=== PATIENT | female | born 1955 | race Caucasian/White ===

== ENCOUNTER → 2018-09-10 17:05 | Outpatient (CLI) | payer OTHER, SELFPAY | PROVIDERS: Family Provider Nurse Practitioner Family; PCP Nurse Practitioner Family; Visit Provider Physician Assistant | DX: R30.0 Dysuria (principal) | CPT/HCPCS: 87077; 87086; 87186 ==

== ENCOUNTER → 2018-12-30 17:46 | Outpatient (CLI) | payer OTHER, SELFPAY | PROVIDERS: Family Provider Nurse Practitioner Family; PCP Nurse Practitioner Family; Visit Provider Physician Assistant | DX: N30.01 Acute cystitis with hematuria (principal) | CPT/HCPCS: 87077; 87086; 87186 ==

== ENCOUNTER 2019-04-19 09:00 | Outpatient (RCR) | payer OTHER, SELFPAY ==
--- NOTE | 2019-03-10 15:12 | PT.OIE ---
Current Diagnoses Female genital prolapse, unspecified (03/10/19) Urgency of urination (03/10/19) Past Medical History (Last Updated 01/11/19 @ 11:29 by Lissett Steinberg MD) Pelvic relaxation (Acute) Past Surgical History Status post breast biopsy Status post bunionectomy Status post endometrial ablation Visit Care Team Role Provider Type Doug NorthFABIANA Hutchins Primary Care Provider Advanced Director Of Instruction Specialty: FP Address: [address] [place] [address], [id number] Email: Lissett Steinberg MD Attending Provider Physician Specialty: BOILER ENGINEER Address: [address] [place] [address], [id number] Email: [email or web address] Physical Therapy Initial Evaluation PT-OP-A Visit Information Start: 03/10/19 07:28 Freq: Status: Active Protocol: Document 03/10/19 08:15 AMB (Rec: 03/10/19 11:00 AMB [email or web address]) Out-Patient Physical Therapy Visit Information Visit Information Visit Type Initial Evaluation Visit Start Time 08:15 Visit Stop Time 09:05 Total Visit Minutes 50 Visit Number 1 PT-OP-B Current Condition Start: 03/10/19 07:28 Freq: Status: Active Protocol: Document 03/10/19 08:15 AMB (Rec: 03/10/19 11:00 AMB [email or web address]) Current Condition History of Current Condition Onset Date 6 months ago Current Complaints prolapse, urinary urgency History of Current Condition Ita noticed increased vaginal pressure about 6-9 months ago. 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 Since that time she has noticed increased urgency. She has also had 4 UTIs since that time and a yeast infection. She notes leaks with triggers like walking into the freezer at work, walking to the toilet , and water running. She also notes lifting things at work could make her leak. She his with 3 vaginal deliveries, the first she had an episiotomy and forceps delivery, the second she had an episiotomy and tore more. She is post menopausal at this point, and not currently sexually active due to her 's recent cancer treatment. Treatment Goals Patient/Caregiver Goals Reduce urge incontinence. Try to help prolapse Prior Functional Status Baseline Function- ADL's Independent Baseline Function- Mobility Independent Current Functional Impairments (Reported) Functional Limitations- Work/School Tries not to lift more than 15 pounds at work due to prolapse Personal Factors Other Personal Factors That May Effect Back pain Therapy/Recovery PT-OP-C Subjective Start: 03/10/19 07:28 Freq: Status: Active Protocol: Document 03/10/19 08:15 AMB (Rec: 03/10/19 14:41 AMB [email or web address]) Patient Questionnaires Pelvic Pain and Urgency/Frequency Patient Symptom Scale Pelvic Pain Score 6 PT-OP-I Pelvic Floor Start: 03/10/19 07:28 Freq: Status: Active Protocol: Document 03/10/19 08:15 AMB (Rec: 03/10/19 14:41 AMB [email or web address]) Pelvic Floor Assessment Urine Pelvic Floor Surgery No Urinary Symptoms Urge Sensation,Prolapse, Falling Out Feeling/Heavy Leakage Size Medium Leakage Cause Lifting,Urge Leaks Per Day varies Voiding Frequency every 2 hours Nocturia 2-4 Urine Pad Type Panty Liner Bowel Other Bowel Symptoms hx of constipation with , but denies recent constipation Bowel Movement Frequency 1x/day Pelvic Clock Pelvic Clock Other pt's pessary in place during assessment, denies any tenderness, redness present throughout groin area Prolapse Prolapse Comments not assessed today due to pessary in place Perineal Descent Resting Absent Bearing Present Contraction Ability Voluntary Contraction Moderate Voluntary Relaxation Moderate Manual Muscle Testing Left 3 Manual Muscle Testing Right 3 Manual Muscle Testing Anterior 3 Manual Muscle Testing Posterior 4 Muscle Endurance (Seconds) 7 Number of Quick Contractions In 10 5 Seconds PT-OP-T Assessment and Plan Start: 03/10/19 07:28 Freq: Status: Active Protocol: Document 03/10/19 08:15 AMB (Rec: 03/10/19 14:59 AMB [email or web address]) Physical Therapy Assessment Rehab Potential Rehabilitation Potential Good Evaluation Complexity Number of Personal Factors/Comorbidities 1-2 Number of Body Systems Impaired 3 Clinical Presentation at Evaluation Evolving Impairments Impairments Functional Activities, Integument,Strength Goals Two Impairment pelvic floor strength Short Term Goal (STG) Ita will improve her pelvic floor strength to 4/5. STG Duration 4 weeks Nurse Practitioner Adult Goal (LTG) Ita will maintain a pelvic floor contraction while she is lifting 15# from the floor to waist height. LTG Duration 8 weeks One Impairment urgency Short Term Goal (STG) Ita will be able to walk into the freezer at work without feeling urgency. STG Duration 4 weeks Jail Goal (LTG) Ita will walk into the bathroom without urgency. LTG Duration 8 weeks Assessment Summary Assessment Ita attends physical therapy with recent history of cystocele, and then recurrent UTI after using a pessary. Since the UTIs she has had urge incontinence. She is currently working on her [employer] and her pelvic floor strength was actually fair. She will benefit from PT to work on reducing her urgency, nocturia, and improve her pelvic floor strength. Physical Therapy Plan Frequency and Duration Frequency of Treatment 1x/Week Duration of Treatment 8 weeks Plan of Care Start Date 03/10/19 Plan of Care End Date 05/05/19 Therapeutic Interventions Therapeutic Interventions Home Exercise Program,Manual Therapy,Neuromuscular Re- education,Self-Care/Home Management,Therapeutic Activities,Therapeutic Exercises Modalities Biofeedback,Electric Stimulation Next Visit Focus/Plan Next Note Type Treatment Note Next Visit Plan start with sEMG, could try NMES, urge reduction.
--- NOTE | 2019-03-10 15:13 | PT.OPPOC ---
Physical, Occupational & Speech Therapy At [facility] Current Diagnoses Female genital prolapse, unspecified (03/10/19) Urgency of urination (03/10/19) Visit Care Team Role Provider FABIANA Yanez Primary Care Provider Advanced Burn Crew Member Specialty: FP Address: [address] [place] [address], [id number] Email: Lissett Steinberg MD Attending Provider Physician Specialty: PERFORMANCE TESTER Address: [address] [place] [address], [id number] Email: [email or web address] Plan Of Care PT-OP-T Assessment and Plan Start: 03/10/19 07:28 Freq: Status: Active Protocol: Document 03/10/19 08:15 AMB (Rec: 03/10/19 14:59 AMB [email or web address]) Physical Therapy Assessment Rehab Potential Rehabilitation Potential Good Evaluation Complexity Number of Personal Factors/Comorbidities 1-2 Number of Body Systems Impaired 3 Clinical Presentation at Evaluation Evolving Impairments Impairments Functional Activities, Integument,Strength Goals Two Impairment pelvic floor strength Short Term Goal (STG) Ita will improve her pelvic floor strength to 4/5. STG Duration 4 weeks [facility]cf Goal (LTG) Ita will maintain a pelvic floor contraction while she is lifting 15# from the floor to waist height. LTG Duration 8 weeks One Impairment urgency Short Term Goal (STG) Ita will be able to walk into the freezer at work without feeling urgency. STG Duration 4 weeks Brass Pourer Goal (LTG) Ita will walk into the bathroom without urgency. LTG Duration 8 weeks Assessment Summary Assessment Ita attends physical therapy with recent history of cystocele, and then recurrent UTI after using a pessary. Since the UTIs she has had urge incontinence. She is currently working on her Kegels and her pelvic floor strength was actually fair. She will benefit from PT to work on reducing her urgency, nocturia, and improve her pelvic floor strength. Physical Therapy Plan Frequency and Duration Frequency of Treatment 1x/Week Duration of Treatment 8 weeks Plan of Care Start Date 03/10/19 Plan of Care End Date 05/05/19 Therapeutic Interventions Therapeutic Interventions Home Exercise Program,Manual Therapy,Neuromuscular Re- education,Self-Care/Home Management,Therapeutic Activities,Therapeutic Exercises Modalities Biofeedback,Electric Stimulation Next Visit Focus/Plan Next Note Type Treatment Note Next Visit Plan start with sEMG, could try NMES, urge reduction. Plan of Care Dates Plan of Care Start Date 03/10/19 Plan of Care End Date 05/05/19 Electronically Signed by: Keely Arroyo, PT 03/10/19 [id number] Please Sign and Return: I have reviewed this Plan of Care and certify that the skilled therapy services above are required to meet the patient?s needs. Physician Signature Date Printed Name and Credentials Clinical Instructor Signature Printed Name and Credentials
--- NOTE | 2019-03-15 09:17 | PT.OTN ---
Current Diagnoses Female genital prolapse, unspecified (03/15/19) Urgency of urination (03/15/19) Physical Therapy Treatment Note PT-OP-A Visit Information Start: 03/10/19 07:28 Freq: Status: Active Protocol: Document 03/15/19 08:15 AMB (Rec: 03/15/19 08:30 AMB [email or web address]) Out-Patient Physical Therapy Visit Information Visit Information Visit Type Treatment Note Visit Start Time 08:15 Visit Stop Time 09:00 Total Visit Minutes 45 Visit Number 2 PT-OP-B Current Condition Start: 03/10/19 07:28 Freq: Status: Active Protocol: Document 03/10/19 08:15 AMB (Rec: 03/10/19 11:00 AMB [email or web address]) Current Condition History of Current Condition Onset Date 6 months ago Current Complaints prolapse, urinary urgency History of Current Condition Ita noticed increased vaginal pressure about 6-9 months ago. She went to her LIVING SPECIALIST and was fitted for a pessary,she denies any specific activity that increased prolapse, it just happened insidiously. Since that time she has noticed increased urgency. She has also had 4 UTIs since that time and a yeast infection. She notes leaks with triggers like walking into the freezer at work, walking to the toilet , and water running. She also notes lifting things at work could make her leak. She his with 3 vaginal deliveries, the first she had an episiotomy and forceps delivery, the second she had an episiotomy and tore more. She is post menopausal at this point, and not currently sexually active due to her 's recent cancer treatment. Treatment Goals Patient/Caregiver Goals Reduce urge incontinence. Try to help prolapse Prior Functional Status Baseline Function- ADL's Independent Baseline Function- Mobility Independent Current Functional Impairments (Reported) Functional Limitations- Work/School Tries not to lift more than 15 pounds at work due to prolapse Personal Factors Other Personal Factors That May Effect Back pain Therapy/Recovery PT-OP-C Subjective Start: 03/10/19 07:28 Freq: Status: Active Protocol: Document 03/15/19 08:15 AMB (Rec: 03/15/19 08:30 AMB [email or web address]) OP-PT Subjective Patient Comments Patient Comments Pt states she has been trying to walk calmly to the bathroom over the past 5 days, and that has worked, with the exception of one time and then she leaked a lot. PT-OP-I Pelvic Floor Start: 03/10/19 07:28 Freq: Status: Active Protocol: Document 03/10/19 08:15 AMB (Rec: 03/10/19 14:41 AMB [email or web address]) Pelvic Floor Assessment Urine Pelvic Floor Surgery No Urinary Symptoms Urge Sensation,Prolapse, Falling Out Feeling/Heavy Leakage Size Medium Leakage Cause Lifting,Urge Leaks Per Day varies Voiding Frequency every 2 hours Nocturia 2-4 Urine Pad Type Panty Liner Bowel Other Bowel Symptoms hx of constipation with , but denies recent constipation Bowel Movement Frequency 1x/day Pelvic Clock Pelvic Clock Other pt's pessary in place during assessment, denies any tenderness, redness present throughout groin area Prolapse Prolapse Comments not assessed today due to pessary in place Perineal Descent Resting Absent Bearing Present Contraction Ability Voluntary Contraction Moderate Voluntary Relaxation Moderate Manual Muscle Testing Left 3 Manual Muscle Testing Right 3 Manual Muscle Testing Anterior 3 Manual Muscle Testing Posterior 4 Muscle Endurance (Seconds) 7 Number of Quick Contractions In 10 5 Seconds PT-OP-Q Treatments Start: 03/10/19 07:28 Freq: Status: Active Protocol: Document 03/15/19 08:15 AMB (Rec: 03/15/19 09:17 AMB [email or web address]) Neuro Re-Education Treatment Other Activities 1 Details sEMG Comments hooklying- quick flicks and long holds. Education in delaying frequency of urination, starting when at home, eventually working towards nighttime and at work. PT-OP-T Assessment and Plan Start: 03/10/19 07:28 Freq: Status: Active Protocol: Document 03/15/19 08:15 AMB (Rec: 03/15/19 09:17 AMB [email or web address]) Physical Therapy Assessment Assessment Summary Assessment sEMG baseline 1.7, max 17, avg 9 for 10 second holds. Some difficulty holding entire 10 seconds, but overall quite good. Will need to continue to work on decreasing frequency and urgency. Physical Therapy Plan Next Visit Focus/Plan Next Note Type Treatment Note Next Visit Plan Expand HEP, continue urge reduction education
--- NOTE | 2019-03-22 10:19 | PT.OTN ---
Current Diagnoses Female genital prolapse, unspecified (03/22/19) Urgency of urination (03/22/19) Physical Therapy Treatment Note PT-OP-A Visit Information Start: 03/10/19 07:28 Freq: Status: Active Protocol: Document 03/22/19 09:00 AMB (Rec: 03/22/19 10:19 AMB [id number]) Out-Patient Physical Therapy Visit Information Visit Information Visit Type Treatment Note Visit Start Time 09:00 Visit Stop Time 09:45 Total Visit Minutes 45 Visit Number 3 PT-OP-B Current Condition Start: 03/10/19 07:28 Freq: Status: Active Protocol: Document 03/10/19 08:15 AMB (Rec: 03/10/19 11:00 AMB [email or web address]) Current Condition History of Current Condition Onset Date 6 months ago Current Complaints prolapse, urinary urgency History of Current Condition Ita noticed increased vaginal pressure about 6-9 months ago. 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 Since that time she has noticed increased urgency. She has also had 4 UTIs since that time and a yeast infection. She notes leaks with triggers like walking into the freezer at work, walking to the toilet , and water running. She also notes lifting things at work could make her leak. She his with 3 vaginal deliveries, the first she had an episiotomy and forceps delivery, the second she had an episiotomy and tore more. She is post menopausal at this point, and not currently sexually active due to her 's recent cancer treatment. Treatment Goals Patient/Caregiver Goals Reduce urge incontinence. Try to help prolapse Prior Functional Status Baseline Function- ADL's Independent Baseline Function- Mobility Independent Current Functional Impairments (Reported) Functional Limitations- Work/School Tries not to lift more than 15 pounds at work due to prolapse Personal Factors Other Personal Factors That May Effect Back pain Therapy/Recovery PT-OP-C Subjective Start: 03/10/19 07:28 Freq: Status: Active Protocol: Document 03/22/19 09:00 AMB (Rec: 03/22/19 10:19 AMB [id number]) OP-PT Subjective Patient Comments Patient Comments Pt states she had one large leak yesterday, but overall had a good week. She is able to make it from her car into her house, she does think she goes to the bathroom about every 2 hours. The one large leak was at work, when she had already ignored the first two urges that she had, and at the third urge had a large leak. Pt is hoping to return to intercourse with her soon, as his cancer has been in remission for 3 months. PT-OP-I Pelvic Floor Start: 03/10/19 07:28 Freq: Status: Active Protocol: Document 03/10/19 08:15 AMB (Rec: 03/10/19 14:41 AMB [email or web address]) Pelvic Floor Assessment Urine Pelvic Floor Surgery No Urinary Symptoms Urge Sensation,Prolapse, Falling Out Feeling/Heavy Leakage Size Medium Leakage Cause Lifting,Urge Leaks Per Day varies Voiding Frequency every 2 hours Nocturia 2-4 Urine Pad Type Panty Liner Bowel Other Bowel Symptoms hx of constipation with , but denies recent constipation Bowel Movement Frequency 1x/day Pelvic Clock Pelvic Clock Other pt's pessary in place during assessment, denies any tenderness, redness present throughout groin area Prolapse Prolapse Comments not assessed today due to pessary in place Perineal Descent Resting Absent Bearing Present Contraction Ability Voluntary Contraction Moderate Voluntary Relaxation Moderate Manual Muscle Testing Left 3 Manual Muscle Testing Right 3 Manual Muscle Testing Anterior 3 Manual Muscle Testing Posterior 4 Muscle Endurance (Seconds) 7 Number of Quick Contractions In 10 5 Seconds PT-OP-Q Treatments Start: 03/10/19 07:28 Freq: Status: Active Protocol: Document 03/22/19 09:00 AMB (Rec: 03/22/19 10:19 AMB [id number]) Neuro Re-Education Treatment Other Activities 1 Details sEMG Comments hooklying- quick flicks and long holds. Education in delaying urgency, but also listening to body and going to the bathroom after urge and not waiting until 2nd or 3rd urge. Self-Care/Home Management Treatment Education Other Education Educated in avoidance of vaseline would recommend something like replens instead . PT-OP-T Assessment and Plan Start: 03/10/19 07:28 Freq: Status: Active Protocol: Document 03/22/19 09:00 AMB (Rec: 03/22/19 09:58 AMB [id number]) Physical Therapy Assessment Assessment Summary Assessment sEMG max 22, avg 10, baseline 1.5. Pt overall improving with her sx of urgency, but did have one large leak yesterday. Encouraged pt not to use vaseline for internal vaginal use. Physical Therapy Plan Next Visit Focus/Plan Next Note Type Treatment Note Next Visit Plan Expand HEP, work on seated/ standing exercises.
--- NOTE | 2019-03-29 14:14 | PT.OTN ---
Current Diagnoses Female genital prolapse, unspecified (03/29/19) Urgency of urination (03/29/19) Physical Therapy Treatment Note PT-OP-A Visit Information Start: 03/10/19 07:28 Freq: Status: Active Protocol: Document 03/29/19 09:00 AMB (Rec: 03/29/19 14:13 AMB [id number]) Out-Patient Physical Therapy Visit Information Visit Information Visit Type Treatment Note Visit Start Time 09:00 Visit Stop Time 09:45 Total Visit Minutes 45 Visit Number 4 PT-OP-B Current Condition Start: 03/10/19 07:28 Freq: Status: Active Protocol: Document 03/10/19 08:15 AMB (Rec: 03/10/19 11:00 AMB [email or web address]) Current Condition History of Current Condition Onset Date 6 months ago Current Complaints prolapse, urinary urgency History of Current Condition Ita noticed increased vaginal pressure about 6-9 months ago. She went to her COMMUNICATIONS OFFICER and was fitted for a pessary,she denies any specific activity that increased prolapse, it just happened insidiously. Since that time she has noticed increased urgency. She has also had 4 UTIs since that time and a yeast infection. She notes leaks with triggers like walking into the freezer at work, walking to the toilet , and water running. She also notes lifting things at work could make her leak. She his with 3 vaginal deliveries, the first she had an episiotomy and forceps delivery, the second she had an episiotomy and tore more. She is post menopausal at this point, and not currently sexually active due to her 's recent cancer treatment. Treatment Goals Patient/Caregiver Goals Reduce urge incontinence. Try to help prolapse Prior Functional Status Baseline Function- ADL's Independent Baseline Function- Mobility Independent Current Functional Impairments (Reported) Functional Limitations- Work/School Tries not to lift more than 15 pounds at work due to prolapse Personal Factors Other Personal Factors That May Effect Back pain Therapy/Recovery PT-OP-C Subjective Start: 03/10/19 07:28 Freq: Status: Active Protocol: Document 03/29/19 09:00 AMB (Rec: 03/29/19 14:13 AMB [id number]) OP-PT Subjective Patient Comments Patient Comments Pt reports no large leaks in the last week, she did have to go to the bathroom 4x last night and felt dribbling on the way there. She thinks this could be related to more to lifting at work and feeling more bulging. She was worried about UTI after initiating intercourse with her for the first time in a long time but took some d-alina and flushed with a lot of fluids and thinks that is going well. PT-OP-I Pelvic Floor Start: 03/10/19 07:28 Freq: Status: Active Protocol: Document 03/10/19 08:15 AMB (Rec: 03/10/19 14:41 AMB [email or web address]) Pelvic Floor Assessment Urine Pelvic Floor Surgery No Urinary Symptoms Urge Sensation,Prolapse, Falling Out Feeling/Heavy Leakage Size Medium Leakage Cause Lifting,Urge Leaks Per Day varies Voiding Frequency every 2 hours Nocturia 2-4 Urine Pad Type Panty Liner Bowel Other Bowel Symptoms hx of constipation with , but denies recent constipation Bowel Movement Frequency 1x/day Pelvic Clock Pelvic Clock Other pt's pessary in place during assessment, denies any tenderness, redness present throughout groin area Prolapse Prolapse Comments not assessed today due to pessary in place Perineal Descent Resting Absent Bearing Present Contraction Ability Voluntary Contraction Moderate Voluntary Relaxation Moderate Manual Muscle Testing Left 3 Manual Muscle Testing Right 3 Manual Muscle Testing Anterior 3 Manual Muscle Testing Posterior 4 Muscle Endurance (Seconds) 7 Number of Quick Contractions In 10 5 Seconds PT-OP-Q Treatments Start: 03/10/19 07:28 Freq: Status: Active Protocol: Document 03/29/19 09:00 AMB (Rec: 03/29/19 14:13 AMB [id number]) Therapeutic Exercises Standing Exercises 1 Standing Exercise Name quick flicks and long holds in standing Reps/Minutes 10 ea Comments hip width apart Therapeutic Activity Therapeutic Activity 1 Name lifting training Reps/Minutes 20 Comments 5# weight, waist to floor with lift and carry. Cues for hip back posture and avoiding knee forward posture. PT-OP-T Assessment and Plan Start: 03/10/19 07:28 Freq: Status: Active Protocol: Document 03/29/19 09:00 AMB (Rec: 03/29/19 14:13 AMB [id number]) Physical Therapy Assessment Assessment Summary Assessment Pt needed multiple cues for lifting technique, but was able to engage pelvic floor with squatting, but does take coordination and concentration . Educated of importance of fadi pelvic floor with lifting due to prolapse. Physical Therapy Plan Next Visit Focus/Plan Next Note Type Treatment Note Next Visit Plan Expand HEP, work on seated/ standing exercises.
--- NOTE | 2019-04-12 16:15 | PT.OTN ---
Current Diagnoses Female genital prolapse, unspecified (04/12/19) Urgency of urination (04/12/19) Physical Therapy Treatment Note PT-OP-A Visit Information Start: 03/10/19 07:28 Freq: Status: Active Protocol: Document 04/12/19 08:15 EG (Rec: 04/12/19 15:24 EG [email or web address]) Out-Patient Physical Therapy Visit Information Visit Information Visit Type Treatment Note Visit Start Time 08:15 Visit Stop Time 09:00 Total Visit Minutes 45 Visit Number 5 PT-OP-B Current Condition Start: 03/10/19 07:28 Freq: Status: Active Protocol: Document 03/10/19 08:15 AMB (Rec: 03/10/19 11:00 AMB [email or web address]) Current Condition History of Current Condition Onset Date 6 months ago Current Complaints prolapse, urinary urgency History of Current Condition Ita noticed increased vaginal pressure about 6-9 months ago. 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 Since that time she has noticed increased urgency. She has also had 4 UTIs since that time and a yeast infection. She notes leaks with triggers like walking into the freezer at work, walking to the toilet , and water running. She also notes lifting things at work could make her leak. She his with 3 vaginal deliveries, the first she had an episiotomy and forceps delivery, the second she had an episiotomy and tore more. She is post menopausal at this point, and not currently sexually active due to her 's recent cancer treatment. Treatment Goals Patient/Caregiver Goals Reduce urge incontinence. Try to help prolapse Prior Functional Status Baseline Function- ADL's Independent Baseline Function- Mobility Independent Current Functional Impairments (Reported) Functional Limitations- Work/School Tries not to lift more than 15 pounds at work due to prolapse Personal Factors Other Personal Factors That May Effect Back pain Therapy/Recovery PT-OP-C Subjective Start: 03/10/19 07:28 Freq: Status: Active Protocol: Document 04/12/19 08:15 EG (Rec: 04/12/19 15:24 EG [email or web address]) OP-PT Subjective Patient Comments Patient Comments Patient reports that she had 1 bad day within the past 2 weeks where she had large leaks 3x throughout the day. She reports that she had very long days at work and she had the urge to go 2x without voiding and by the 3rd urge she could not hold it and soiled her undergarment. The patient thinks it was because her pessery was not in correctly that day and it messed with her ability to hold the urge throughout the day. The patient now has a pessery placer tool which she and her have been using to place the pessery. She believes it seems to be working better for her . PT-OP-I Pelvic Floor Start: 03/10/19 07:28 Freq: Status: Active Protocol: Document 03/10/19 08:15 AMB (Rec: 03/10/19 14:41 AMB [email or web address]) Pelvic Floor Assessment Urine Pelvic Floor Surgery No Urinary Symptoms Urge Sensation,Prolapse, Falling Out Feeling/Heavy Leakage Size Medium Leakage Cause Lifting,Urge Leaks Per Day varies Voiding Frequency every 2 hours Nocturia 2-4 Urine Pad Type Panty Liner Bowel Other Bowel Symptoms hx of constipation with , but denies recent constipation Bowel Movement Frequency 1x/day Pelvic Clock Pelvic Clock Other pt's pessary in place during assessment, denies any tenderness, redness present throughout groin area Prolapse Prolapse Comments not assessed today due to pessary in place Perineal Descent Resting Absent Bearing Present Contraction Ability Voluntary Contraction Moderate Voluntary Relaxation Moderate Manual Muscle Testing Left 3 Manual Muscle Testing Right 3 Manual Muscle Testing Anterior 3 Manual Muscle Testing Posterior 4 Muscle Endurance (Seconds) 7 Number of Quick Contractions In 10 5 Seconds PT-OP-Q Treatments Start: 03/10/19 07:28 Freq: Status: Active Protocol: Document 04/12/19 08:15 EG (Rec: 04/12/19 15:24 EG [email or web address]) Therapeutic Exercises Standing Exercises Sit to Stand with Pelvic Lift Standing Exercise Name Pelvic floor contraction with transition from Sit<>Stand Reps/Minutes 10x Comments breath with movement 1 Standing Exercise Name quick flicks and long holds in standing Reps/Minutes 10 ea Comments hip width apart Therapeutic Activity Therapeutic Activity 1 Name lifting training Reps/Minutes 20 Comments 5# weight, waist to floor with lift and carry as well as practice lifting from hip width from table. Cues for hip back posture and avoiding knee forward posture as well as engagement of pelvic floor and core musculature. Encourage use of leg muscles whenever possible PT-OP-T Assessment and Plan Start: 03/10/19 07:28 Freq: Status: Active Protocol: Document 04/12/19 08:15 EG (Rec: 04/12/19 15:24 EG [email or web address]) Physical Therapy Assessment Progress Towards Goals Progress Towards Goals Progressing Toward Goals Assessment Summary Assessment Patient needs verbal and tactile cues to lift objects from the ground correctly especially to emphasize use of legs during this movement while maintaining pelvic floor muscle contraction. She should continue to practice this at home. Patient was educated on importance of going to the bathroom after the 1st urge has passed to decrease uncontrolled voiding. Patient is having a pessery check today after the appointment - be sure to assess how this was. Physical Therapy Plan Frequency and Duration Frequency of Treatment 1x/Week Duration of Treatment 8 weeks Plan of Care Start Date 03/10/19 Plan of Care End Date 05/05/19 Next Visit Focus/Plan Next Note Type Treatment Note Next Visit Plan Assess how pessery check was. Assess HEP, Last visit - decide if more is needed or D/ C. I, Keely Arroyo DPT, supervised all treatment performed by, and agreed with the plan of care, as performed by Hayde Pelletier, JAI.
--- NOTE | 2019-04-19 13:44 | PT.OTN ---
Current Diagnoses Female genital prolapse, unspecified (04/19/19) Urgency of urination (04/19/19) Physical Therapy Treatment Note PT-OP-A Visit Information Start: 03/10/19 07:28 Freq: Status: Active Protocol: Document 04/19/19 09:00 AMB (Rec: 04/19/19 09:37 AMB [id number]) Out-Patient Physical Therapy Visit Information Visit Information Visit Type Discharge Summary Visit Start Time 09:00 Visit Stop Time 09:45 Total Visit Minutes 45 Visit Number 6 PT-OP-B Current Condition Start: 03/10/19 07:28 Freq: Status: Active Protocol: Document 03/10/19 08:15 AMB (Rec: 03/10/19 11:00 AMB [email or web address]) Current Condition History of Current Condition Onset Date 6 months ago Current Complaints prolapse, urinary urgency History of Current Condition Ita noticed increased vaginal pressure about 6-9 months ago. 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 Since that time she has noticed increased urgency. She has also had 4 UTIs since that time and a yeast infection. She notes leaks with triggers like walking into the freezer at work, walking to the toilet , and water running. She also notes lifting things at work could make her leak. She his with 3 vaginal deliveries, the first she had an episiotomy and forceps delivery, the second she had an episiotomy and tore more. She is post menopausal at this point, and not currently sexually active due to her 's recent cancer treatment. Treatment Goals Patient/Caregiver Goals Reduce urge incontinence. Try to help prolapse Prior Functional Status Baseline Function- ADL's Independent Baseline Function- Mobility Independent Current Functional Impairments (Reported) Functional Limitations- Work/School Tries not to lift more than 15 pounds at work due to prolapse Personal Factors Other Personal Factors That May Effect Back pain Therapy/Recovery PT-OP-C Subjective Start: 03/10/19 07:28 Freq: Status: Active Protocol: Document 04/19/19 09:00 AMB (Rec: 04/19/19 13:44 AMB [email or web address]) OP-PT Subjective Patient Comments Patient Comments Ita reports no leaking the last week, because she has been voiding after the first urge. She has been trying to drink more fluids. She is happy with her PT so far, and knows she can call the clinic if she has any more questions. PT-OP-I Pelvic Floor Start: 03/10/19 07:28 Freq: Status: Active Protocol: Document 03/10/19 08:15 AMB (Rec: 03/10/19 14:41 AMB [email or web address]) Pelvic Floor Assessment Urine Pelvic Floor Surgery No Urinary Symptoms Urge Sensation,Prolapse, Falling Out Feeling/Heavy Leakage Size Medium Leakage Cause Lifting,Urge Leaks Per Day varies Voiding Frequency every 2 hours Nocturia 2-4 Urine Pad Type Panty Liner Bowel Other Bowel Symptoms hx of constipation with , but denies recent constipation Bowel Movement Frequency 1x/day Pelvic Clock Pelvic Clock Other pt's pessary in place during assessment, denies any tenderness, redness present throughout groin area Prolapse Prolapse Comments not assessed today due to pessary in place Perineal Descent Resting Absent Bearing Present Contraction Ability Voluntary Contraction Moderate Voluntary Relaxation Moderate Manual Muscle Testing Left 3 Manual Muscle Testing Right 3 Manual Muscle Testing Anterior 3 Manual Muscle Testing Posterior 4 Muscle Endurance (Seconds) 7 Number of Quick Contractions In 10 5 Seconds PT-OP-Q Treatments Start: 03/10/19 07:28 Freq: Status: Active Protocol: Document 04/19/19 08:15 AMB (Rec: 04/19/19 13:42 AMB [email or web address]) Therapeutic Exercises Other Exercises 1 Other Exercise Name Reviewed HEP Comments and importance to continue lifelong strengthening Therapeutic Activity Therapeutic Activity 1 Name lifting training Reps/Minutes 20 Comments 15# weight, waist to floor with lift and carry as well as practice lifting from hip width from table. Cues for hip back posture and avoiding knee forward posture as well as engagement of pelvic floor and core musculature. Encourage use of leg muscles whenever possible PT-OP-T Assessment and Plan Start: 03/10/19 07:28 Freq: Status: Active Protocol: Document 04/19/19 09:00 AMB (Rec: 04/19/19 09:37 AMB [id number]) Physical Therapy Assessment Goals Two Impairment pelvic floor strength Short Term Goal (STG) Ita will improve her pelvic floor strength to 4/5. STG Duration 4 weeks Mcc Goal (LTG) Ita will maintain a pelvic floor contraction while she is lifting 15# from the floor to waist height. LTG Duration MET One Impairment urgency Short Term Goal (STG) Ita will be able to walk into the freezer at work without feeling urgency. STG Duration MET Mcc Goal (LTG) Ita will walk into the bathroom without urgency. LTG Duration MET Assessment Summary Assessment Ita's lifting technique continues to be impaired, mostly by her knee pain. Better today, and she does feel successful with her fadi pelvic floor while lifting. Her urgency has improved. She does report she does continue to get urge, but can delay urination long enough to safely get to a bathroom which is a definite improvement since evaluation. Physical Therapy Plan Discharge Physical Therapy Discharge Reasons Goals Met Discharge Comments Ita has met her goals. She does not like the idea of using the pessary forever, therefore she is considering surgery in a few months. She was encouraged to work on her strengthening between now and then, and then after surgery as well to prevent return of cystocele after surgery.
== END 2019-04-19 16:26 | disposition home or self-care (01) ==
LOC: PHYS 09:00
PROVIDERS: PCP Nurse Practitioner Family; Visit Provider Obstetrics & Gynecology
DX: N81.9 Female genital prolapse, unspecified (principal); R39.15 Urgency of urination
CPT/HCPCS: 97110; 97112; 97162; 97530

== ENCOUNTER → 2020-01-04 08:57 | Outpatient (CLI) | payer OTHER, SELFPAY ==
--- NOTE | 2020-01-04 11:08 | DIET.PN ---
Diabetes Intake: Initial Assessment Assess: Ms. Perla is a 64 YOF referred for type 2 diabetes. She is newly diagnosed, but is educated in diabetes management as her has a long standing hx. She admits to completely changing dietary habits since April and being let off of work. She was not exercising and has not been monitoring her BG. Labs: Per pt report: A1c: 8.3 Meds: metformin 750 mg BID Diet: per 24 hr recall: B: 1/2 cup oats, hemp seeds, coffee creamer, pecans, blueb; veg egg omelet L: salad w/ canned meat; celery w/ pb; cottage chz D: chicken/steel head/salmon, veg, starch; soups Sn: fruit Wt: 185lb Ht: 66in BMI: 30 BP: 133/82 DX: Altered nutrition related laboratory values related to impaired glucose metabolism, lack of previous exposure to nutrition information as evidenced by pt report, diagnosis of diabetes, previous diet high in refined carbohydrates. Intervention: 1. Completed intake assessment. Discussed barriers to care. 2. Discussed pathophysiology of diabetes. Reviewed A1c and its correlation to blood glucose numbers. Discussed recommended BG ranges. 3. Discussed importance of self-monitoring, how often, and when to check. 4. Reviewed hyper/hypoglycemia and treatment. 5. Reviewed safe disposal of equipment (strip/lancets/insulin needles). 6. Created SMART goals for pt self-care and success. 7. Discussed program curriculum outline and class needs based on individual goals. SMART Goals: 1. Pt would like to lose 20lb in the next 3 mo through dietary changes, carb counting, portion control, and increasing exercise to at least 10,000 steps per day. Monitor/Evaluate: Pt will attend full DSME program. Basic Nutrition class scheduled for Feb 01.
== END ==
PROVIDERS: PCP Nurse Practitioner Family; Referring Provider Nurse Practitioner Family; Visit Provider Nurse Practitioner Family
DX: E11.9 Type 2 diabetes mellitus without complications (principal)
CPT/HCPCS: G0108

== ENCOUNTER → 2021-06-26 16:35 | Outpatient (CLI) | payer OTHER, SELFPAY ==
--- NOTE | 2021-06-26 16:39 | DI.RAD.S_ITS ---
PROCEDURE: XR KNEE RT 3V INDICATIONS: eval R knee pain/swelling, no trauma TECHNIQUE: Three views of the knee were acquired. COMPARISON: None. FINDINGS: Bones: Normal mineralization. No acute fractures. Normal bone alignment. There is mild tricompartment joint space loss. Mild patellofemoral compartment spurring. Soft tissues: Small joint effusion. No visible chondrocalcinosis. IMPRESSION: 1. Small joint effusion may indicate internal derangement. MRI is recommended if there is no improvement following conservative management. 2. Mild tricompartment osteoarthritic change. Dictated by: Corry Frias M.D. on 06/27/2021 at 8:36 Approved by: Corry Frias M.D. on 06/27/2021 at 8:37
== END ==
PROVIDERS: PCP Nurse Practitioner Family; Referring Provider Registered Nurse Diabetes Educator; Visit Provider Registered Nurse Diabetes Educator
DX: M25.561 Pain in right knee (principal); M25.461 Effusion, right knee
CPT/HCPCS: 73562

== ENCOUNTER → 2021-07-08 10:26 | Outpatient (CLI) | payer OTHER, SELFPAY ==
[2021-07-08 11:10] LABS: COVID19 -Nasal RAPID Negative (Negative)
== END ==
PROVIDERS: PCP Nurse Practitioner Family; Visit Provider Surgery
DX: Z20.822 Contact with and (suspected) exposure to COVID-19 (principal); Z01.812 Encounter for preprocedural laboratory examination
CPT/HCPCS: 87635; C9803

== ENCOUNTER 2021-07-09 06:31 | Day surgery (SDC) | payer OTHER, SELFPAY ==
[2021-07-09] VITALS (7 sets, daily range): BP systolic 124–187; BP diastolic 68–88; PULSE 52–88; RESP 12–100; TEMP 36.1–36.4; O2SAT 20–98; BMI 29.1
--- NOTE | 2021-07-09 | PATH_ITS ---
[facility] Accession Number: [id number] . 01 Material submitted: . sigmoid colon - SIGMOID POLYPS . 02 Diagnosis: Sigmoid Colon, Polyps, Biopsies: Tubular adenomas. MRV 07/11/2021 1021 Local . 02 Electronically signed: . Dariela Wen MD, Pathologist NPI- [id number] . 01 Gross description: . SIGMOID POLYPS: Received in formalin are 4 fragment(s) of sauceda, soft tissue measuring 0.4 x 0.3 x 0.2 cm to 0.2 x 0.1 x 0.1 cm submitted entirely in 1 cassette(s) /CPE 07/10/2021 0812 Local . 02 Pathologist provided ICD-10: D12.5 . 02 CPT . 092422 Specimen Comment: A courtesy copy of this report has been sent to [phone] Performed at: 01 [facility] Cyt[facility] [address] [facility], [place], [place] [id number] MD John Jones MD Phone: [phone] Performed at: 02 [facility] [address] [place], [place] [id number] MD Dariela Wen MD Phone: [phone]
[2021-07-09] MEDS: LACTATED RINGERS 1,000 ML 200 ML IV (07:30)
--- NOTE | 2021-07-09 07:48 | PM.HP.1 ---
History of Present Illness History of Present Illness Date Patient Seen: 07/09/21 Time Patient Seen: 07:48 Chief complaint: SCREENING COLONOSCOPY Narrative: The patient presents for colorectal screening. They have never had any previous examination for such. No personal or family history of colon cancer. On further history denies any recent gastrointestinal symptoms. No nausea, vomiting, abdominal pain, loss of appetite, unexplained weight loss, change in bowel habits, diarrhea, constipation, melena, hematochezia, or bright red blood per rectum. Patient History Medical History Acquired hypothyroidism Allergies Colon cancer screening declined (11/2019) Essential hypertension (1989) Intrauterine pessary (~2018) Knee pain Osteoporosis Pelvic relaxation Screening for malignant neoplasm of colon (02/2021) Type 2 diabetes mellitus (07/2019) Vitamin D deficiency (07/2019) Surgical History Anesthesia Status post breast biopsy Status post bunionectomy Status post endometrial ablation Family & Social History Family History Father Diabetes mellitus Heart disease Pancreatitis Heart attack Hyperlipidemia Hypertension Grandfather Heart disease Cancer Grandmother Heart disease Mother Heart disease Hypertension Hyperlipidemia Grandmother Heart disease Hypertension Sister Age: 61 Hypertension Brother Heart disease Brother Heart disease Brother Heart disease Social History: household members spouse Tobacco & Substance use: Smoking Status Former smoker alcohol intake never Substance Use Type does not use Meds Home Medications and Allergies Home Medications Medication Instructions Recorded Confirmed Type clobetasol 0.05 % topical ointment 1 applictn TOP .COMPLEX #30 gram 04/12/19 06/26/21 Rx ascorbate calcium (vitamin C) 500 500 mg PO DAILY 03/21/21 07/09/21 History mg tablet cholecalciferol (vitamin D3) 50 5,000 unit PO DAILY cap 03/21/21 06/26/21 History mcg (2,000 unit) capsule fenofibrate nanocrystallized 145 See Rx Instructions .ROUTE 03/21/21 06/26/21 Rx mg tablet .COMPLEX #90 tab hydrochlorothiazide 25 mg tablet See Rx Instructions .ROUTE 03/21/21 07/09/21 Rx .COMPLEX #90 tab levothyroxine 75 mcg tablet See Rx Instructions .ROUTE 03/21/21 07/09/21 Rx .COMPLEX #90 tab lisinopril 30 mg tablet 30 mg PO DAILY #90 tab 03/21/21 07/09/21 Rx metformin 500 mg tablet 500 mg PO BID #270 tab 03/21/21 07/09/21 Rx vitamin B complex (B 1 tab PO DAILY 03/21/21 06/26/21 History Complex-Vitamin B12) Allergies Allergy/AdvReac Type Severity Reaction Status Date / Time From ZITHROMAX Allergy Unknown RASH Uncoded 07/09/21 07:25 Exam Vital Signs (past 8 hours): - 07/09/21 07:13 Temperature 97.6 F Pulse Rate 88 Respiratory Rate 100 H Blood Pressure 187/88 H Pulse Oximetry 20 L Oxygen Delivery Method Room Air Narrative Exam Narrative: General adult female alert oriented no acute distress Chest nonlabored respirations Extremities warm well perfused Assessment & Plan Assessment & Plan narrative: The patient requires colorectal screening and colonoscopy is recommended. Technical details were discussed. Risks, benefits, alternatives explained. Risks including but not limited to myocardial infarction, aspiration, bleeding, pain, missed lesion, incomplete examination, need for further radiographic studies, colonic perforation, and need for major abdominal surgery were discussed. All questions were answered to their satisfaction, and they are in agreement with this plan. Time Spent With Patient Critical Care time: I spent a total of [] minutes of critical care time on this patient's care today; this time is exclusive of procedural time.
[2021-07-09] MEDS: fentaNYL 250 MCG/5 ML INJ 200 MCG IV (07:58)
[2021-07-09] MEDS: MIDAZOLAM 5 MG/5 ML VIAL 6 MG IV (07:58)
--- NOTE | 2021-07-09 08:25 | PM.OP.COLON ---
Operative Date/Time/Diagnoses Date of procedure: 07/09/21 Time of procedure: 08:25 Pre-op diagnosis: Screening Post-op diagnosis: same Procedure & Clinicians Study performed: Colonoscopy, polypectomy Same procedure as scheduled: Yes Indications: Screening Surgeon: Oh Ward Procedure Notes Procedure in detail: Medications: Conscious sedation using 6 mg IV midazolam and 200 mcg IV of fentanyl The history and physical was performed/updated and the patient is ASA class is 2. The procedure was discussed in detail with the patient. Potential risks complications including infection, bleeding, missed diagnosis, perforation, need for surgery, and were explained. Their questions were answered and informed consent was obtained. Patient was brought to the procedure room and placed standard monitoring equipment. The patient's vital signs were monitored continuously throughout the entire procedure. Prior to starting time-out was performed. The patient was placed in the left lateral recumbent position. Procedural sedation was administered. Examination began with a thorough inspection of the perianal area there was no evidence of fissures, fistulae, external hemorrhoids or cutaneous malignancy. The colonoscopy scope was then placed into the anal canal and was advanced to the cecum, which was identified by the ileocecal valve, the appendiceal orifice and the confluence of the taenia. The scope was then slowly withdrawn examining colon thoroughly in all directions, irrigating it of any residual stool. FINDINGS 1. 8 mm polyp in the sigmoid colon 20 cm from the anal verge removed with cold snare. Area distal to the polyp was tattooed with 2 mL of ink 2. Sigmoid diverticulosis The patient tolerated the procedure well. They will be discharged once criteria are met. The prep was of good/excellent quality. The withdrawl time was 11 minutes. The sedation time was 25 minutes. Specimen(s): other (Sigmoid polyp) Complications: none Impression: Colonic polyp Post-procedure Recommendations: High fiber diet and Other recommendation(s) (Will notify with biopsy result) Disposition: same day surgery
--- NOTE | 2021-07-09 09:13 | SUR.PHASEII ---
0910a-Patient meets criteria for discharge . abdomen remains soft. reassured on pain to improve, and related to procedure and gas. Encouraged to pass gas. pain down to 5/10 after repositioned. Pt spoke to Dr Ward prior to discharge re:pain. pain down more after expelled gas in restroom prior to discharge. home by wheelchair to spouses care/car with all belongings and paper work.
== END 2021-07-09 09:15 | disposition home or self-care (01) ==
PROVIDERS: PCP Nurse Practitioner Family; Referring Provider Surgery; Visit Provider Surgery
PROC: 0DJD8ZZ Inspection of Lower Intestinal Tract, Via Natural or Artificial Opening Endoscopic (ICD-10-PCS; CPT 45378; principal; 2021-07-09 07:45)
DX: Z12.11 Encounter for screening for malignant neoplasm of colon (principal); E11.9 Type 2 diabetes mellitus without complications; E03.9 Hypothyroidism, unspecified; Z79.84 Long term (current) use of oral hypoglycemic drugs; K57.30 Diverticulosis of large intestine without perforation or abscess without bleeding; D12.5 Benign neoplasm of sigmoid colon
CPT/HCPCS: 45381; 45385; 99152; 99153; J2250; J3010

== ENCOUNTER → 2021-08-06 16:15 | Outpatient (CLI) | payer OTHER, SELFPAY ==
--- NOTE | 2021-08-06 16:17 | DI.MRI.S_ITS ---
PROCEDURE: MR KNEE RT WO CON INDICATIONS: eval small joint effusion/right knee pain TECHNIQUE: Noncontrast sagittal PD fast spin echo and T2 fast spin echo with fat saturation, sagittal 3-D FLASH with fat saturation; coronal T1 spin echo and PD fast spin echo with fat saturation, and axial PD fast spin echo with fat saturation through the knee. COMPARISON: [facility], CR, XR KNEE RT 3V, 06/26/2021, 17:00. FINDINGS: Image quality: Excellent. Menisci: There is medial meniscal extrusion and complex tear of the posterior horn and body of the medial meniscus. Horizontal tear is seen in the anterior horn of the medial meniscus. The lateral meniscus demonstrates normal morphology and internal signal. The meniscal root ligaments appear intact. Cruciate ligaments: The anterior and posterior cruciate ligaments appear intact. Medial structures: The medial collateral ligament appears intact. The semimembranosus tendon insertions and meniscocapsular junction appear intact. Visualized portions of the pes anserinus tendons appear normal. No abnormal bursal fluid. Lateral structures: The lateral collateral ligament, long and short heads of the biceps femoris tendon appear intact. The popliteus tendon appears normal. Iliotibial band appears normal. Anterior structures: The quadriceps and patellar tendons appear intact. Patellar alignment is normal. No femoral trochlear dysplasia or ventral trochlear prominence. No edema in the infrapatellar fat pad. Bones and cartilage: No bone marrow contusions or fractures. There is severe thinning in the medial patellofemoral compartment with denuded weight-bearing articular surface. Subchondral edema in the medial femoral condyle and medial tibial plateau is present, likely secondary to [id number] core. Mild cartilage thinning and moderate cartilage fibrillation/fissuring are seen in the lateral femorotibial compartment and patellofemoral compartment. Prominent tricompartmental periarticular osteophytes are present. Joint space: There is moderate knee joint effusion. There is a small Couch's cyst. A 1.1 cm ganglion cyst is seen posterior to the distal femur (series 5, image 4; series 7 image 21). Normal appearing synovial plicae are incidentally noted. IMPRESSION: 1. Medial meniscal extrusion and complex tear of the medial meniscus. 2. Severe cartilage thinning with denuded articular surface in the medial femorotibial compartment with associated subchondral edema secondary to [id number]. 3. Moderate knee joint effusion. 4. Small Couch's cyst. Dictated by: Elva Howard M.D. on 08/07/2021 at 9:45 Approved by: Elva Howard M.D. on 08/07/2021 at 9:57
== END ==
PROVIDERS: PCP Nurse Practitioner Family; Referring Provider Registered Nurse Diabetes Educator; Visit Provider Registered Nurse Diabetes Educator
DX: S83.231A Complex tear of medial meniscus, current injury, right knee, initial encounter (principal); M71.21 Synovial cyst of popliteal space [Baker], right knee; M25.461 Effusion, right knee; M25.561 Pain in right knee; G89.29 Other chronic pain
CPT/HCPCS: 73721

== ENCOUNTER → 2021-08-29 15:17 | Outpatient (CLI) | payer OTHER, SELFPAY | PROVIDERS: PCP Registered Nurse Diabetes Educator; Referring Provider Registered Nurse Diabetes Educator; Visit Provider Registered Nurse Diabetes Educator | DX: M81.0 Age-related osteoporosis without current pathological fracture (principal); M85.88 Other specified disorders of bone density and structure, other site | CPT/HCPCS: 77080 ==

== ENCOUNTER → 2022-01-24 11:51 | Outpatient (CLI) | payer OTHER, SELFPAY ==
[2022-01-24 12:57] LABS: Hemoglobin A1C% w Est Avg Glu 6.5 % (4.0-6.0)
[2022-01-24 15:02] LABS: Microalbumin Urine Random 9.3 mg/dL (0-1.6)
== END ==
PROVIDERS: PCP Registered Nurse Diabetes Educator; Referring Provider Registered Nurse Diabetes Educator; Visit Provider Registered Nurse Diabetes Educator
DX: E11.9 Type 2 diabetes mellitus without complications (principal)
CPT/HCPCS: 36415; 82043; 82570; 83036

== ENCOUNTER → 2022-04-23 10:23 | Outpatient (CLI) | payer OTHER, SELFPAY ==
[2022-04-23 12:21] LABS: Add Manual Diff / Slide Review NO; Basophils Absolute Auto 0 /uL (0-100); Basophils Percent Auto 0.3 % (0-2); Eosinophils Absolute Auto 500 /uL (0-450); Eosinophils Percent Auto 8.5 % (2-4); Hematocrit 38.6 % (36-46); Hemoglobin 13.2 g/dL (12.0-16.0); Lymphocytes Absolute Auto 1800 /uL (1100-4500); Lymphocytes Percent Auto 33.8 % (25-40); Mean Corpuscular HGB Conc 34.2 % (30-36); Mean Corpuscular Hemoglobin 29.3 PG (26-34); Mean Corpuscular Volume 85.6 fL (80-100); Monocytes Absolute Auto 300 /uL (0-900); Monocytes Percent Auto 5.8 % (3-14); Neutrophils Absolute Auto 2800 /uL (1500-7000); Neutrophils Percent Auto 51.6 % (50-75); Platelet Count 208 X10^3/uL (150-400); Red Blood Cell Count 4.51 X10^6/uL (4.0-5.2); Red Cell Distribution Width 12.7 % (11.6-14.8); White Blood Cell Count 5.5 X10^3/uL (4.5-11.0)
[2022-04-23 12:23] LABS: Hemoglobin A1C% w Est Avg Glu 6.1 % (4.0-6.0)
[2022-04-23 13:06] LABS: Alanine Aminotransferase 26 IU/L (<35); Albumin 4.5 g/dL (3.5-5.0); Albumin Globulin Ratio 1.3 (1.0-2.8); Alkaline Phosphatase 78 U/L (38-126); Aspartate Aminotransferase 26 IU/L (14-36); BUN Creatinine Ratio 39.2 (6-22); Bilirubin Total 0.5 mg/dL (0.2-1.3); Blood Urea Nitrogen 20 mg/dL (7-17); Calcium 9.8 mg/dL (8.4-10.2); Carbon Dioxide 30 mmol/L (22-32); Chloride 98 mmol/L (98-107); Estimated Glomerular Filt Rate > 60 mL/min (>60); Globulin 3.4 g/dL (1.7-4.1); Glucose 121 mg/dL (80-110); HEMOLYSIS < 15 (0-50); Potassium 4.3 mmol/L (3.4-5.1); Sodium 141 mmol/L (137-145); Total Protein 7.9 g/dL (6.3-8.2)
[2022-04-25 16:54] LABS: TSH w/ Reflex to FT4 1.03 uIU/mL (0.47-4.68)
== END ==
PROVIDERS: PCP Registered Nurse Diabetes Educator; Referring Provider Registered Nurse Diabetes Educator; Visit Provider Registered Nurse Diabetes Educator
DX: Z01.818 Encounter for other preprocedural examination (principal); E11.9 Type 2 diabetes mellitus without complications; I10 Essential (primary) hypertension
CPT/HCPCS: 36415; 80053; 83036; 84443; 85025

== ENCOUNTER 2022-05-30 06:24 | Day surgery (SDC) | payer OTHER, SELFPAY ==
[2022-05-07 11:44] VITALS: BMI 29.2
[2022-05-30] VITALS (10 sets, daily range): BP systolic 116–182; BP diastolic 46–81; PULSE 62–85; RESP 12–17; TEMP 36.3–37.3; O2SAT 92–100; BMI 29.2
--- NOTE | 2022-05-30 | PATH_ITS ---
[facility] Accession Number: [id number] No. of containers..01 Tissue . 01 Material submitted: . uterus - UTERUS,BILATERAL FALLOPIAN TUBES,BILATERAL OVARIES . 01 Diagnosis: Uterus, Bilateral Fallopian Tubes, Bilateral Ovaries, Hysterectomy and Bilateral Salpingo-oophorectomy (Weight 61 grams): Cervix with patchy parakeratosis, consistent with clinical impression of prolapse. Endocervix with no significant histomorphologic abnormality. Inactive endometrium; negative for glandular hyperplasia, cytologic atypia, or malignancy. Myometrium with patchy involvement by adenomyosis and with multiple hyalinized intramural leiomyomas (6 mm - 15 mm). Uterine serosa with no significant histomorphologic abnormality. Complete cross-sections of left fallopian tube with benign paratubal cysts (up to 6 mm); negative for significant atypia. Complete cross-sections of right fallopian tube with benign paratubal cysts (up to 3 mm); negative for significant atypia. Right ovary with no significant histomorphologic abnormality. Left ovary with benign seromucinous inclusion cysts (2 mm). [facility] 06/04/2022 1401 Local . 01 Electronically signed: . Ruth Sweet MD, Pathologist NPI- [id number] . 01 Gross description: . The specimen is received in formalin labeled with the patient's name, , and uterus, bilateral fallopian tubes, bilateral ovaries, and consists of an intact uterus (61 g, 7.4 cm SI, 5.6 cm ML, 3.5 cm AP) with attached cervix (3.4 x 2.7 cm), attached left fallopian tube (4.2 x 0.7 cm), attached left ovary (4 g, 2.7 x 1.2 x 0.9 cm), attached right fallopian tube (4.6 x 1.0 cm), and attached right ovary (4 g, 2.6 x 1.0 x 0.7 cm). The ectocervix is pink-sauceda and finely granular with a slit-like cervical os measuring 1.2 cm in diameter. The anterior paracervical margin is inked blue while the posterior paracervical margin is inked black. The serosa is sauceda and smooth with no evidence of adhesion or hemorrhage identified. The endocervical margin has sauceda, herringbone mucosa and measures 1.4 cm in length. The endometrial cavity measures 2.2 cm from cornu to cornu and 3.3 cm in length with red velvety endometrium that averages 0.1 cm thick with no lesions identified. The myometrium is pink-asuceda and trabecular measuring up to 1.6 cm in maximum thickness and significant for two well-circumscribed, white, whorled nodules ranging from 0.6 cm to 1.5 cm in greatest dimension with no hemorrhage or necrosis identified. The left fallopian tube has sauceda, smooth serosa with multiple cystic structures measuring up to 0.6 cm in greatest dimension filled with clear to cloudy serous fluid. Sectioning reveals an unremarkable stellate lumen. The left ovary has a sauceda, cerebriform external surface. Sectioning reveals an unremarkable physiologic cut surface with no cysts or lesions identified. The right fallopian tube has sauceda, smooth serosa with multiple cystic structures measuring up to 0.3 cm in greatest dimension filled with cloudy serous fluid. Sectioning reveals an unremarkable stellate lumen. The right ovary has a sauceda, cerebriform external surface. Sectioning reveals an unremarkable physiologic cut surface with no lesions or cysts identified. Institutional Research Director sections are submitted as follows: A1: Anterior cervix. A2: Posterior cervix. A3: Anterior full-thickness section. A4: Posterior full-thickness section. A5: Serosa. A6: Institutional Research Director nodules. A7: Left fallopian tube to include one-half of bisected fimbriae and cross-sections. A8: Institutional Research Director left ovary. A9: Right fallopian tube to include one-half of bisected fimbriae and cross-sections. A10: Institutional Research Director right ovary. ([id number]) /Kervin 05/31/2022 1539 Local . 01 Pathologist provided ICD-10: N81.4, N81.10, N81.6 . 01 CPT . 730626 Specimen Comment: A courtesy copy of this report has been sent to [phone] Performed at: 01 [facility] [address] [place] [address], [place], [place] [id number] MD John Jones MD Phone: [phone]
[2022-05-30] MEDS: LACTATED RINGERS 1,000 ML 100 ML IV ×4 (07:12→21:27)
[2022-05-30 07:27] LABS: COVID19 -Nasal RAPID Negative (Negative)
[2022-05-30] MEDS: CEFAZOLIN 2 GM/100 ML PREMIX 100 ML IV (07:52)
[2022-05-30] MEDS: BUPIVACAINE 0.25% (PF) 30 ML, EPINEPHrine 0.15 MG INJ (08:30)
[2022-05-30] MEDS: BUPIVACAINE 0.5% (PF) 10 ML VIAL INJ (08:33)
--- NOTE | 2022-05-30 08:36 | SUR.OPER ---
Lithotomy on padded OR bed. [place] Pad Positioner under torso. Head on pillow, arms padded and tucked at sides. Legs secured in padded yellow fins stirrups.
--- NOTE | 2022-05-30 10:09 | PM.PREOP ---
Pre-operative Note COVID-19 COVID-19 status: Negative Result date/Date tested (Pos, Neg/Pending): 05/30/22 Criteria for continued procedure: Non-surgical alternatives not available or appropriate per current SOC Interval Note History & Physical reviewed/Exam performed by Physician: Yes Changes to H&P: Yes H&P completed within 30 days and has changed as indicated here:: , Anterior repair only, no posterior repair
--- NOTE | 2022-05-30 10:18 | PM.GYNOP.1 ---
Operative Date/Time/Diagnoses Date of procedure: 05/30/22 Time of procedure: 10:18 Pre-op diagnosis: Uterine prolapse Cystocele Post-op diagnosis: same Procedure & Clinicians Procedure: Procedures Operation Date: 05/30/22 07:45 Actual Procedure Side Surgeon p Laparoscopic Assisted Vaginal Hysterectomy w. bilateral salpingo-oophorectomy, Lissett Steinberg MD s Anterior Repair, perineorrhaphy Lissett Steinberg MD Indications: Uterine prolapse Cystocele Surgeon: Lissett Steinberg Rehabilitation Team Lead: Devin Haynes Anesthesia Type: General and Local Operative Notes Findings: 5 week size prolapsed uterus Normal tubes and ovaries Normal liver and gallbladder Appendix not visualized Third-degree cystocele Enlarged genital hiatus Closure Type: primary Specimen(s): left tube & ovary, right tube & ovary and uterus Applied: catheter (To continuous drainage) and other (Betadine moistened vaginal packing in place) Estimated blood loss (mL): 100 Blood products transfused: none Procedure in detail: The patient was taken to the operating room where she was placed in the dorsal supine position. After adequate general endotracheal anesthesia was achieved, she was placed in the dorsal lithotomy position, and prepped and draped in the usual sterile fashion. A time-out was performed. A bivalve speculum was placed into the vagina, and a single-tooth tenaculum was placed on the anterior lip of the cervix. The cervical os was sequentially dilated until the ZUMI uterine manipulator could pass easily into the endometrial cavity. The single-tooth tenaculum was removed from the anterior lip of the cervix, and the bivalve speculum was removed from the vagina. Attention was then turned to the abdomen where 6 mL of half percent Marcaine with epinephrine were injected in the umbilical fold. A 5 mm incision was made. The Verees needle was placed into the peritoneal cavity, and its placement confirmed by aspiration and drop test. The abdominal cavity was insufflated with 4 L of CO2. The Verees needle was removed, and a 5 mm trocar was placed without difficulty. Initial inspection of the pelvis revealed the findings noted above. 2 other incisions were made 4 cm lateral to the umbilicus 4 cm lateral to the midline. These were 5 mm incisions. Two 5 mm trocars were placed under direct visualization. The right tube and ovary were grasped with an atraumatic grasper. The infundibulopelvic ligament on the right side was cauterized and cut with the Powerseal. The round ligament and broad ligament were cauterized and cut. This was continued to the level of the uterine arteries. The bladder flap was created using the power seal. The uterine arteries on the right side were cauterized with the power seal. This was repeated on the patient's left side. The bladder was taken down off the lower uterine segment and cervix. The instruments were removed from the abdomen. The CO2 was allowed to escape. The trocars were covered with a sterile blue towel. Attention was then turned to the vagina where the ZUMI uterine manipulator was removed from the uterus. The cervix was grasped with a 4 tooth tenaculum. 10 mL of quarter percent Marcaine with epinephrine were injected circumferentially around the cervix. The cervix was circumscribed. The bladder and rectum were dissected off the lower uterine segment and cervix with an open moistened Ray-Espinoza. The peritoneum was entered sharply with the Metzenbaum scissors anteriorly and a Angelica placed. The peritoneum was entered posteriorly with the Metzenbaum scissors and the long weighted speculum was placed into the posterior cul-de-sac. The uterosacral cardinal ligament complexes were clamped, transected, and suture ligated with 0 Vicryl. These were attached to hemostats. The uterus was handed off for specimen with the tubes and ovaries. The vaginal cuff was closed with 0 Vicryl with a series of simple interrupted sutures. The tagged sutures were cut. 2 Allis clamps were placed at the apex of the cystocele. 6 mL of half percent Marcaine with epinephrine were injected and an incision was made with a #10 blade between the 2 Allis clamps. Wide Allis clamps were placed on the midline of the cystocele approximately 7. The mucosa was undermined using the Metzenbaum scissors and the mucosa incised in the midline moving the wide Allis clamps to the edges of the mucosa. The mucosa was dissected off the underlying fascia using an open moistened Ray-Espinoza and a #10 blade. The fascia was reapproximated with 0 Vicryl with a series of horizontal mattress sutures. The excess vaginal mucosa was excised. The mucosa was closed using simple interrupted sutures with 2-0 Vicryl including the underlying fascia to close the space. The weighted speculum was removed from the vagina. Allis clamps were placed at the mucocutaneous junction at the introitus. 6 mL of half percent Marcaine with epinephrine were injected. An incision was made with a #10 blade between the 2 Allis clamps, and a triangular piece of skin and underlying subcutaneous tissue was removed. 2-0 Vicryl was used to reapproximate the vaginal mucosa. After 3 stitches this suture was tagged. The levator muscles were reapproximated with 0 Vicryl with 2 simple interrupted sutures. The 2-0 Vicryl was then continued along the vaginal mucosa and down onto the perineum with deep sutures. The skin was closed with 2-0 chromic in a subcuticular fashion. Hemostasis was achieved. A Betadine moistened vaginal packing was placed into the vagina. Attention was then turned to the abdomen where the peritoneum was re-insufflated with carbon dioxide gas. The patient was placed in slight Trendelenburg. The pelvis was examined and there was no bleeding noted. The instruments were removed from the abdomen. The CO2 was allowed to escape. The incisions were closed with 4-0 Monocryl in a subcuticular fashion. Steri-Strips and Allevyn dressings were placed. 300 cc of clear yellow urine. 1800 cc of crystalloid. Sponge, lap, and instrument counts were correct x 2. The patient tolerated the procedure well, was taken to PACU in stable condition. Complications: none Post-operative Condition: stable Disposition: PACU Plan for aftercare: To acute care after recovery
[2022-05-30] MEDS: ACETAMINOPHEN 325 MG TABLET 650 MG PO ×2 (11:58→21:28)
--- NOTE | 2022-05-30 12:00 | PC.NURSE ---
slight bleeding noted to middle lap bandage.
--- NOTE | 2022-05-30 16:00 | PC.NURSE ---
peripad changed, scant amount of blood noted to pad, spot of blood noted on vaginal packing too. a little more blood noted on middle bandage from lap.
[2022-05-30] MEDS: OXYCODONE IR 5 MG TABLET PO ×2 (16:02→21:51)
[2022-05-30] MEDS: KETOROLAC 30 MG/ML VIAL IV ×2 (16:03→21:51)
[2022-05-30] MEDS: FENOFIBRATE, MICRONIZED 67 MG CAPSULE 134 MG PO (21:27)
[2022-05-30] MEDS: DOCUSATE 100 MG CAPSULE 200 MG PO (21:30)
[2022-05-30] MEDS: METFORMIN HCL 500 MG TABLET PO (21:32)
[2022-05-31] MEDS: ZOLPIDEM 5 MG TABLET 10 MG PO (00:20)
[2022-05-31 00:29] VITALS: BP 108/58; PULSE 59; RESP 16; TEMP 37.4; O2SAT 97
[2022-05-31] MEDS: OXYCODONE IR 5 MG TABLET PO (06:07)
[2022-05-31] MEDS: ACETAMINOPHEN 325 MG TABLET 650 MG PO (06:08)
[2022-05-31] MEDS: LEVOTHYROXINE 75 MCG TABLET PO (06:08)
[2022-05-31 06:25] VITALS: BP 116/66; PULSE 58; RESP 16; TEMP 36.8; O2SAT 98
[2022-05-31 07:20] LABS: Add Manual Diff / Slide Review NO; Basophils Absolute Auto 0 /uL (0-100); Basophils Percent Auto 0.5 % (0-2); Eosinophils Absolute Auto 200 /uL (0-450); Hemoglobin 10.5 g/dL (12.0-16.0); Lymphocytes Absolute Auto 2900 /uL (1100-4500); Lymphocytes Percent Auto 31.9 % (25-40); Mean Corpuscular Hemoglobin 29.9 PG (26-34); Mean Corpuscular Volume 85.6 fL (80-100); Monocytes Absolute Auto 600 /uL (0-900); Monocytes Percent Auto 6.7 % (3-14); Neutrophils Absolute Auto 5400 /uL (1500-7000); Neutrophils Percent Auto 58.9 % (50-75); Platelet Count 181 X10^3/uL (150-400); Red Blood Cell Count 3.51 X10^6/uL (4.0-5.2); Red Cell Distribution Width 12.8 % (11.6-14.8); White Blood Cell Count 9.2 X10^3/uL (4.5-11.0)
[2022-05-31 07:59] VITALS: BP 119/61; PULSE 76; RESP 16; TEMP 36.7; O2SAT 97
--- NOTE | 2022-05-31 08:12 | PC.NURSE ---
2879 patient awake,denies any pain,no void yet,encouraged her to drink fluids, is independently moving in bed.
[2022-05-31] MEDS: METFORMIN HCL 500 MG TABLET 750 MG PO (08:50)
[2022-05-31 08:51] VITALS: BP 136/64; PULSE 82
[2022-05-31] MEDS: lisinopriL 10 MG TABLET 30 MG PO (08:51)
[2022-05-31] MEDS: hydroCHLOROthiazide 25 MG TABLET PO (08:51)
[2022-05-31] MEDS: DOCUSATE 100 MG CAPSULE 200 MG PO (08:52)
[2022-05-31 09:23] VITALS: BP 136/64; PULSE 76; RESP 16
--- NOTE | 2022-05-31 09:26 | PC.NURSE ---
0900 patient awake,resting in bed, no pain,passing gas, gave her metformin,hypertensive med; BP charted.up to bathroom voided 100cc of yellow urine,residual urine 0. notified .
--- NOTE | 2022-05-31 10:53 | PC.NURSE ---
Standby assist with ambulation in hallway,patient independent,did well.Back to bed.
--- NOTE | 2022-06-01 19:26 | PM.DS.1 ---
History of Present Illness History of Present Illness Date Patient Seen: 05/31/22 Time Patient Seen: 09:30 Chief complaint: LAVH/BSO w/A&P Repair *OPB* Narrative: Patient is a 66 year old who underwent an LAVH/BSO/anterior repair with perineorrhaphy on 05/30/22 without complication. Her postoperative course was unremarkable. Her catheter was removed at 6am on 05/31/22. She voided 300cc of clear yellow urine. Her post void residural was minimal. She was ambulating. No N/V. She was passing gas. She was tolerating a diet. She was discharged to home on 05/31/22. Discharge Providers Provider Date of admission: 05/30/22 Discharge Date: 05/31/22 Primary care physician: FABIANA Monzon Discharge provider: Lissett Steinberg MD Summary Hospital Course Hospital Course: The patient underwent an LAVH/BSO/anterior-posterior repair with a perineorrhaphy. Her postoperative course was unremarkable. Her catheter was removed at 6am on 05/31/22. She voided 300cc of clear yellow urine. Her post void residual was minimal. She was ambulating. No N/V. She was passing gas. She was tolerating a diet. She was discharged to home on 05/31/22. Exam Vital Signs (past 8 hours): Oxygen Delivery Method Nasal Cannula Oxygen Flow Rate 2 Narrative Exam Narrative: Generally: Patient sitting up in chair, no acute distress Lungs: CTA bilat CV: RRR Abd: Soft, appropriately tender. Incision: C/D/I with Allevyn dressings Ext: No edema, negative Rand's. Objective Labs 05/31/22 06:48 PFSH Medical History Acquired hypothyroidism Allergies Colon cancer screening declined (11/2019) Dyslipidemia Essential hypertension (1989) Intrauterine pessary (~2018) Knee pain Osteoporosis Pelvic relaxation Screening for malignant neoplasm of colon (02/2021) Type 2 diabetes mellitus (07/2019) Vitamin D deficiency (07/2019) Surgical History Anesthesia Status post breast biopsy Status post bunionectomy Status post endometrial ablation Family History Father Diabetes mellitus Heart disease Pancreatitis Heart attack Hyperlipidemia Hypertension Grandfather Heart disease Cancer Grandmother Heart disease Mother Heart disease Hypertension Hyperlipidemia Grandmother Heart disease Hypertension Sister Age: 62 Hypertension Brother Heart disease Brother Heart disease Brother Heart disease Social History household members: spouse Smoking Status: Former smoker alcohol intake: never eating out: 1-3 times/week Type(s) of exercise: walking Discharge Assessment & Plan Assessment and Plan Assessment: POD#1 s/p LAVH/BSO/A-P repair/Perineorrhaphy, doing very well Plan of Treatment: Discharge to home F/U 2 wks Discharge Plan Discharge Plan Patient Disposition: Home Provider Discharge Comment: Call with fever, chills, redness or drainage around the incisions, or bleeding vaginally more than spotting to light Ibuprofen every 6 hours starting at 12:30 p.m. today Tylenol every 6 hours Stool softener Discharge orders & Medications Discharge Orders: Discharge (Order); Ordered 05/31/22 Ordered By: Lissett Steinberg Prescriptions: New tramadol 50 mg tablet 50 mg PO Q4H PRN (Reason: pain) Qty: 20 0RF ondansetron 4 mg tablet,disintegrating 4 mg PO Q6H PRN (Reason: nausea and vomiting) Qty: 14 0RF Continued cholecalciferol (vitamin D3) 50 mcg (2,000 unit) capsule 5,000 unit PO DAILY calcium carbonate [Calcium 600] 600 mg calcium (1,500 mg) tablet 600 mg PO DAILY vitamin B complex [B Complex-Vitamin B12] Tablet 1 tab PO DAILY ascorbate calcium (vitamin C) 500 mg tablet 500 mg PO DAILY clobetasol 0.05 % ointment 1 applic TOP .COMPLEX Qty: 30 2RF Rx Instructions: 1 applic topical Twice daily for 2 weeks, then continue once daily fenofibrate nanocrystallized 145 mg tablet 145 mg PO DAILY Qty: 90 3RF levothyroxine 75 mcg tablet 75 mcg PO DAILY Qty: 90 3RF metformin 500 mg tablet See Rx Instructions PO BID Qty: 240 3RF Rx Instructions: take 1.5 tabs (750mg) in the am, 1 tab (500mg) in the pm cyanocobalamin (vitamin B-12) [Vitamin B-12] PO DAILY zinc citrate PO DAILY hydrochlorothiazide 25 mg tablet 25 mg PO DAILY Qty: 90 1RF lisinopril 30 mg tablet 30 mg PO DAILY Qty: 90 1RF Discontinued mupirocin 2 % ointment 1 applic topical TID Qty: 15 0RF Trimo-Peter Jelly 0.025-0.01 % gel 1 ea VAG .weekly Qty: 113.4 3RF Follow up/Referrals: Lissett Steinberg MD [Physician] - (Postop appointments already set) Diet/Activity/Treatments Diet: Regular Activity: No heavy lifting, nothing more than a gal of milk Nothing in the vagina Skin/Wound/Dressing Care Report to your healthcare provider any signs of infection, such as:: chills, fever, increased pain, unusual drainage and unusual redness Dressing: Remove outer pink dressings with attached gauze on Thursday morning after a shower Visit Report/Discharge Packet Instructions: DI for Cystocele and Rectocele Repair, DI for Hysterectomy, DI for Laparoscopy Stand Alone Forms: Patient Portal/API, Surgery Discharge Discharge Data Primary Care Provider: Mando Puente Attending Provider: Lissett Steinberg Quality VTE Deep Vein Thrombosis/Pulmonary Embolism Present on Admission: No
== END 2022-05-31 11:58 | disposition home or self-care (01) ==
LOC: OR 06:30 → LABOR 11:42
PROVIDERS: PCP Registered Nurse Diabetes Educator; Referring Provider Obstetrics & Gynecology; Visit Provider Obstetrics & Gynecology
PROC: 0UT9FZZ Resection of Uterus, Via Natural or Artificial Opening With Percutaneous Endoscopic Assistance (ICD-10-PCS; CPT 57240; principal; 2022-05-30 07:45)
PROC: (CPT 57240; 2022-05-30 07:45)
DX: N81.89 Other female genital prolapse (principal)
CPT/HCPCS: 57240; 58552; 36415; 82962; 85025; 87635; C9803; J0171; J0330; J0690; J1100; J1170; J1885; J2250; J2405; J2704; J3010

== ENCOUNTER → 2022-12-01 10:03 | Outpatient (CLI) | payer OTHER, SELFPAY ==
[2022-05-30 10:45] VITALS: BMI 29.2
[2022-12-01 11:09] LABS: Hematocrit 35.8 % (36-46); Hemoglobin 12.4 g/dL (12.0-16.0); Mean Corpuscular HGB Conc 34.6 % (30-36); Mean Corpuscular Hemoglobin 29.4 PG (26-34); Mean Corpuscular Volume 85.2 fL (80-100); Platelet Count 219 X10^3/uL (150-400); Red Cell Distribution Width 12.8 % (11.6-14.8); White Blood Cell Count 5.8 X10^3/uL (4.5-11.0)
[2022-12-01 11:15] LABS: Hemoglobin A1C% w Est Avg Glu 5.4 % (4.0-6.0)
[2022-12-01 11:31] LABS: Alanine Aminotransferase 19 IU/L (<35); Albumin 4.5 g/dL (3.5-5.0); Albumin Globulin Ratio 1.4 (1.0-2.8); Alkaline Phosphatase 80 U/L (38-126); Aspartate Aminotransferase 21 IU/L (14-36); BUN Creatinine Ratio 55.3 (6-22); Bilirubin Total 0.5 mg/dL (0.2-1.3); Blood Urea Nitrogen 26 mg/dL (7-17); Calcium 10.8 mg/dL (8.4-10.2); Carbon Dioxide 29 mmol/L (22-32); Chloride 102 mmol/L (98-107); Cholesterol 142 mg/dL (140-199); Estimated Glomerular Filt Rate > 60 mL/min (>60); Globulin 3.2 g/dL (1.7-4.1); Glucose 124 mg/dL (80-110); HDL Cholesterol 55 mg/dL (40-60); HEMOLYSIS < 15 (0-50); LDL Cholesterol Calculated 66 mg/dL (<100); Sodium 139 mmol/L (137-145); Total Protein 7.7 g/dL (6.3-8.2); Triglycerides 105 mg/dL (35-150)
[2022-12-01 12:00] LABS: TSH w/ Reflex to FT4 1.25 uIU/mL (0.47-4.68)
[2022-12-01 12:35] LABS: Microalbumin Urine Random 2.4 mg/dL (0-1.6)
== END ==
PROVIDERS: PCP Registered Nurse Diabetes Educator; Referring Provider Registered Nurse Diabetes Educator; Visit Provider Registered Nurse Diabetes Educator
DX: E78.5 Hyperlipidemia, unspecified (principal); E11.9 Type 2 diabetes mellitus without complications; E03.9 Hypothyroidism, unspecified; R80.9 Proteinuria, unspecified; I10 Essential (primary) hypertension
CPT/HCPCS: 36415; 80053; 80061; 82043; 82570; 83036; 84443; 85027

== ENCOUNTER → 2023-02-06 10:15 | Outpatient (CLI) | payer OTHER, SELFPAY ==
[2022-05-30 10:45] VITALS: BMI 29.2
[2023-02-06 11:00] LABS: Add Manual Diff / Slide Review NO; Basophils Absolute Auto 100 /uL (0-100); Basophils Percent Auto 0.9 % (0-2); Eosinophils Absolute Auto 400 /uL (0-450); Eosinophils Percent Auto 6.9 % (2-4); Hematocrit 37.9 % (36-46); Lymphocytes Absolute Auto 2600 /uL (1100-4500); Mean Corpuscular HGB Conc 34.2 % (30-36); Mean Corpuscular Hemoglobin 29.5 PG (26-34); Mean Corpuscular Volume 86.3 fL (80-100); Monocytes Absolute Auto 400 /uL (0-900); Monocytes Percent Auto 6.9 % (3-14); Neutrophils Absolute Auto 2000 /uL (1500-7000); Neutrophils Percent Auto 37.3 % (50-75); Platelet Count 178 X10^3/uL (150-400); Red Blood Cell Count 4.39 X10^6/uL (4.0-5.2); White Blood Cell Count 5.4 X10^3/uL (4.5-11.0)
[2023-02-06 11:29] LABS: Alanine Aminotransferase 21 IU/L (<35); Albumin 4.6 g/dL (3.5-5.0); Albumin Globulin Ratio 1.3 (1.0-2.8); Alkaline Phosphatase 70 U/L (38-126); Aspartate Aminotransferase 22 IU/L (14-36); Bilirubin Total 0.6 mg/dL (0.2-1.3); Blood Urea Nitrogen 23 mg/dL (7-17); Calcium 10.3 mg/dL (8.4-10.2); Carbon Dioxide 31 mmol/L (22-32); Chloride 100 mmol/L (98-107); Estimated Glomerular Filt Rate > 60 mL/min (>60); Globulin 3.5 g/dL (1.7-4.1); Glucose 122 mg/dL (80-110); HEMOLYSIS < 15 (0-50); Potassium 3.8 mmol/L (3.4-5.1); Sodium 138 mmol/L (137-145); Total Protein 8.1 g/dL (6.3-8.2)
[2023-02-06 11:34] LABS: Creatinine Urine Random 63.2 mg/dL
[2023-02-06 11:39] LABS: Microalbumi Creatinin Ratio Ur 26.8 ug/mg CR (<30); Microalbumin Urine Random 1.7 mg/dL (0-1.6)
[2023-02-06 11:59] LABS: TSH w/ Reflex to FT4 1.37 uIU/mL (0.47-4.68)
[2023-02-06 15:26] LABS: Hemoglobin A1C% w Est Avg Glu 5.8 % (4.0-6.0)
== END ==
PROVIDERS: PCP Registered Nurse Diabetes Educator; Referring Provider Registered Nurse Diabetes Educator; Visit Provider Registered Nurse Diabetes Educator
DX: E11.9 Type 2 diabetes mellitus without complications (principal); I10 Essential (primary) hypertension; R80.9 Proteinuria, unspecified
CPT/HCPCS: 36415; 80053; 82043; 82570; 83036; 84443; 85025

== ENCOUNTER → 2023-02-10 17:12 | Outpatient (CLI) | payer OTHER, SELFPAY ==
[2022-05-30 10:45] VITALS: BMI 29.2
[2023-02-10 21:32] LABS: MRSA (Nasal) PCR Not Detected (Not Detect)
== END ==
PROVIDERS: PCP Registered Nurse Diabetes Educator; Visit Provider Registered Nurse Diabetes Educator
DX: Z01.818 Encounter for other preprocedural examination (principal)
CPT/HCPCS: 87797

== ENCOUNTER → 2023-02-24 10:00 | Outpatient (CLI) | payer MEDICARE, SELFPAY ==
[2022-05-30 10:45] VITALS: BMI 29.2
[2023-02-24 10:52] LABS: Add Manual Diff / Slide Review NO; Basophils Absolute Auto 0 /uL (0-100); Basophils Percent Auto 0.8 % (0-2); Eosinophils Absolute Auto 300 /uL (0-450); Eosinophils Percent Auto 6.4 % (2-4); Hematocrit 38.1 % (36-46); Lymphocytes Absolute Auto 2300 /uL (1100-4500); Lymphocytes Percent Auto 44.2 % (25-40); Mean Corpuscular HGB Conc 34.2 % (30-36); Mean Corpuscular Hemoglobin 29.1 PG (26-34); Mean Corpuscular Volume 85.1 fL (80-100); Monocytes Absolute Auto 300 /uL (0-900); Monocytes Percent Auto 6.5 % (3-14); Neutrophils Absolute Auto 2200 /uL (1500-7000); Neutrophils Percent Auto 42.1 % (50-75); Platelet Count 220 X10^3/uL (150-400); Red Blood Cell Count 4.48 X10^6/uL (4.0-5.2); Red Cell Distribution Width 13.1 % (11.6-14.8); White Blood Cell Count 5.2 X10^3/uL (4.5-11.0)
[2023-02-24 11:07] LABS: Estimated Glomerular Filt Rate > 60 mL/min (>60)
== END ==
LOC: LAB 10:02
PROVIDERS: PCP Registered Nurse Diabetes Educator; Referring Provider Registered Nurse Diabetes Educator; Visit Provider Registered Nurse Diabetes Educator
DX: Z01.818 Encounter for other preprocedural examination (principal); E11.9 Type 2 diabetes mellitus without complications; I10 Essential (primary) hypertension
CPT/HCPCS: 36415; 82565; 85025

== ENCOUNTER → 2023-09-07 11:32 | Outpatient (CLI) | payer MEDICARE, SELFPAY ==
[2022-05-30 10:45] VITALS: BMI 29.2
[2023-09-07 14:26] LABS: Hemoglobin A1C% w Est Avg Glu 5.9 % (4.0-6.0)
[2023-09-07 14:39] LABS: Alanine Aminotransferase 20 IU/L (<35); Albumin 4.7 g/dL (3.5-5.0); Albumin Globulin Ratio 1.3 (1.0-2.8); Alkaline Phosphatase 80 U/L (38-126); Aspartate Aminotransferase 25 IU/L (14-36); Bilirubin Total 0.6 mg/dL (0.2-1.3); Bilirubin Unconjugated 0.2 mg/dL (0.0-1.1); Cholesterol 167 mg/dL (140-199); Globulin 3.6 g/dL (1.7-4.1); HDL Cholesterol 54 mg/dL (40-60); HEMOLYSIS < 15 (0-50); LDL Cholesterol Calculated 86 mg/dL (<100); Total Protein 8.3 g/dL (6.3-8.2); Triglycerides 135 mg/dL (35-150)
== END ==
PROVIDERS: PCP Registered Nurse Diabetes Educator; Referring Provider Registered Nurse Diabetes Educator; Visit Provider Registered Nurse Diabetes Educator
DX: E11.9 Type 2 diabetes mellitus without complications (principal); E78.5 Hyperlipidemia, unspecified
CPT/HCPCS: 36415; 80061; 80076; 83036

== ENCOUNTER 2023-11-22 15:31 | Emergency (ER) | payer MEDICARE, SELFPAY ==
[2022-05-30 10:45] VITALS: BMI 29.2
[2023-11-22] VITALS (16 sets, daily range): BP systolic 138–201; BP diastolic 64–84; PULSE 56–95; RESP 16–34; TEMP 37; O2SAT 95–100; BMI 28.8
--- NOTE | 2023-11-22 15:49 | EKG_ITS ---
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
[2023-11-22 16:12] LABS: Ammonia (NH3) < 9 umol/L (9-30)
[2023-11-22 16:17] LABS: Alanine Aminotransferase 27 IU/L (<35); Albumin 4.9 g/dL (3.5-5.0); Albumin Globulin Ratio 1.2 (1.0-2.8); Alkaline Phosphatase 85 U/L (38-126); Aspartate Aminotransferase 28 IU/L (14-36); BUN Creatinine Ratio 44.7 (6-22); Bilirubin Total 0.6 mg/dL (0.2-1.3); Blood Urea Nitrogen 21 mg/dL (7-17); Calcium 10.6 mg/dL (8.4-10.2); Carbon Dioxide 26 mmol/L (22-32); Chloride 101 mmol/L (98-107); Creatine Kinase 91 U/L (30-135); Estimated Glomerular Filt Rate > 60 mL/min (>60); Glucose 114 mg/dL (80-110); HEMOLYSIS < 15 (0-50); Lipase 208 U/L (23-300); Potassium 3.7 mmol/L (3.4-5.1); Sodium 137 mmol/L (137-145); Total Protein 8.9 g/dL (6.3-8.2)
[2023-11-22 16:18] LABS: Add Manual Diff / Slide Review NO; Basophils Absolute Auto 200 /uL (0-100); Basophils Percent Auto 2.1 % (0-2); Eosinophils Absolute Auto 100 /uL (0-450); Eosinophils Percent Auto 1.8 % (2-4); Hematocrit 39.9 % (36-46); Hemoglobin 13.7 g/dL (12.0-16.0); Lymphocytes Absolute Auto 2800 /uL (1100-4500); Mean Corpuscular HGB Conc 34.2 % (30-36); Mean Corpuscular Hemoglobin 29.5 PG (26-34); Mean Corpuscular Volume 86.2 fL (80-100); Monocytes Absolute Auto 400 /uL (0-900); Monocytes Percent Auto 5.1 % (3-14); Neutrophils Absolute Auto 4000 /uL (1500-7000); Platelet Count 258 X10^3/uL (150-400); Red Blood Cell Count 4.63 X10^6/uL (4.0-5.2); Red Cell Distribution Width 13.3 % (11.6-14.8); White Blood Cell Count 7.5 X10^3/uL (4.5-11.0)
[2023-11-22 16:23] LABS: Troponin I < 0.012 ng/mL (0.01-0.034)
[2023-11-22 16:40] LABS: Appearance Urine UA CLEAR; Bilirubin Urine UA NEGATIVE (NEGATIVE); Color Urine UA YELLOW; Glucose Urine UA NEGATIVE (Negative); Ketones Urine UA NEGATIVE (NEGATIVE); Leukocyte Esterase Urine UA 1+ (NEGATIVE); Nitrite Urine UA POSITIVE (Negative); Occult Blood Urine UA NEGATIVE (Negative); Protein Urine UA NEGATIVE (Negative); Urobilinogen Urine UA 0.2 E.U./dL (0.2)
[2023-11-22 16:48] LABS: Bacteria Urine Many (>30); Culture Indicated Urine Specimen Cultured; RBC Urine 0-1/HPF (0-5/HPF); Squamous Epithelial Cell Urine None Seen (0-5/HPF); Urine Volume 10mL (spun); WBC Urine 1-5/HPF (0-5/HPF)
--- NOTE | 2023-11-22 18:19 | ED.GENADULT ---
HPI - General Adult General Chief complaint: Abdominal Pain Stated complaint: R Side Abd Pain, Nausea Time Seen by Provider: 11/22/23 17:56 Source: patient Mode of arrival: Ambulatory History of Present Illness HPI narrative: Patient is a 68-year-old female who is here for evaluation of 4 days of was initially right lower quadrant abdominal pain that was just right to her umbilicus. She states now the pain is a burning sensation in her right upper quadrant. Does seem to get somewhat worse after eating. Has had normal bowel movements without any change in the pain. No nausea or vomiting. No prior abdominal surgeries. No urinary symptoms. She states that the discomfort does not change with urination. No skin changes over the area. Related Data Home Medications Medication Instructions Recorded Confirmed ascorbate calcium (vitamin C) 500 500 mg PO DAILY 03/21/21 09/08/23 mg tablet cholecalciferol (vitamin D3) 50 5,000 unit PO DAILY 03/21/21 09/08/23 mcg (2,000 unit) capsule cyanocobalamin (vitamin B-12) PO DAILY 01/28/22 09/08/23 [Vitamin B-12] zinc citrate PO DAILY 01/28/22 09/08/23 loratadine 10 mg tablet (Allergy 10 mg PO DAILY 03/20/23 09/08/23 Relief (loratadine)) acetaminophen 325 mg tablet 650 mg PO Q4-6H PRN pain 04/30/23 09/08/23 calcium 600 mg capsule mg PO 09/08/23 09/08/23 Previous Rx's Medication Instructions Recorded clobetasol 0.05 % topical ointment 1 applic topical .COMPLEX #30 grams 12/03/22 fenofibrate 160 mg tablet 160 mg PO DAILY #90 tabs 06/24/23 estradiol 0.01% (0.1 mg/gram) 0.5 g vaginal QWEEK #42.5 grams 07/16/23 vaginal cream (Estrace) amlodipine 2.5 mg tablet 2.5 mg PO DAILY #90 tabs 09/08/23 hydrochlorothiazide 25 mg tablet 25 mg PO DAILY #90 tabs 09/08/23 levothyroxine 75 mcg tablet 75 mcg PO DAILY #90 tabs 09/08/23 lisinopril 40 mg tablet 40 mg PO DAILY #90 tabs 09/08/23 metformin 500 mg tablet See Rx Instructions PO BID #240 09/08/23 tabs cephalexin 500 mg capsule 500 mg PO BID 3 days #6 caps 11/22/23 Allergies Allergy/AdvReac Type Severity Reaction Status Date / Time azithromycin Allergy Mild Rash Verified 11/22/23 15:41 Review of Systems Review of Systems ROS Unobtainable: All systems reviewed & are unremarkable except as noted in HPI and below Patient History Medical History Dyslipidemia Osteoporosis Colon cancer screening declined (11/2019) Allergies Knee pain Intrauterine pessary (~2018) Vitamin D deficiency (07/2019) Screening for malignant neoplasm of colon (02/2021) Type 2 diabetes mellitus (07/2019) Essential hypertension (1989) Acquired hypothyroidism Surgical History Anesthesia Status post bunionectomy Status post breast biopsy Status post endometrial ablation Family History Father Diabetes mellitus Heart disease Pancreatitis Heart attack Hyperlipidemia Hypertension Grandfather Heart disease Cancer Grandmother Heart disease Mother Heart disease Hypertension Hyperlipidemia Grandmother Heart disease Hypertension Sister Age: 63 Hypertension Brother Heart disease Brother Heart disease Brother Heart disease Social History household members: spouse Smoking Status: Former smoker alcohol intake: never eating out: 1-3 times/week Type(s) of exercise: walking Smoking Status: Former smoker Substance Use Type: does not use Exam Initial Vital Signs Initial Vital Signs: Vital Signs Temperature 98.6 F 11/22/23 15:37 Pulse Rate 66 11/22/23 15:37 Respiratory Rate 18 11/22/23 15:37 Blood Pressure 191/84 H 11/22/23 15:37 Pulse Oximetry 98 11/22/23 15:37 Oxygen Delivery Method Room Air 11/22/23 15:37 Const General: cooperative, comfortable and No ill appearing HENMT Head: normal to inspection and normocephalic Resp Effort & Inspection: normal respiratory effort Auscultation: clear to auscultation bilaterally Cardio Rate: regular rate Rhythm: regular rhythm GI Inspection: normal to inspection and non-distended Palpation: soft, No firm, No guarding and tender Back/Spine/Pelvis Back: No CVA tenderness Skin General: no rashes or lesions noted Neuro General: patient alert, patient awake, patient oriented x3 and moves all extremities Extrem General: normal to inspection and capillary refill normal Course Orders Ordered: ED Orders 11/22/23 15:49 EKG-12 Lead Routine 11/22/23 15:50 Ammonia (NH3) Stat Complete Blood Count AUTO DIFF Stat Comprehensive Metabolic Panel Stat Lipase Stat Troponin & CK Cardiac Panel Stat 11/22/23 16:30 Urinalysis and Microscopic Stat Urine Culture Stat 11/22/23 18:20 CT abdomen pelvis w con Stat 11/22/23 19:17 US abdomen limited Stat Discontinued Medications Cephalexin HCl (Cephalexin 250 Mg Capsule) 500 mg PO NOW ONE Stop: 11/22/23 20:48 Last Admin: 11/22/23 20:55 Dose: 500 mg Documented By: DEVAN Vital Signs Vital signs: Vital Signs - 8 hr 11/22/23 16:00 11/22/23 16:00 11/22/23 16:31 Pulse Rate 59 L 60 Respiratory Rate 29 H Blood Pressure 170/79 H Pulse Oximetry 99 99 11/22/23 16:32 11/22/23 16:32 11/22/23 17:00 Pulse Rate 58 L 57 L Respiratory Rate Blood Pressure 176/75 H Pulse Oximetry 99 99 11/22/23 17:00 11/22/23 17:30 11/22/23 17:30 Pulse Rate 59 L Respiratory Rate Blood Pressure 151/68 H 150/71 H Pulse Oximetry 100 11/22/23 18:00 11/22/23 18:00 11/22/23 18:35 Pulse Rate 56 L 76 Respiratory Rate 30 H Blood Pressure 153/67 H Pulse Oximetry 96 97 11/22/23 18:36 11/22/23 18:36 11/22/23 19:00 Pulse Rate 68 Respiratory Rate 16 Blood Pressure 151/67 H 171/69 H Pulse Oximetry 99 11/22/23 19:00 11/22/23 19:30 11/22/23 19:30 Pulse Rate 59 L 60 Respiratory Rate 34 H 29 H Blood Pressure 145/69 H Pulse Oximetry 98 95 11/22/23 20:00 11/22/23 20:03 11/22/23 20:03 Pulse Rate 61 63 Respiratory Rate 17 16 Blood Pressure 161/72 H Pulse Oximetry 98 98 11/22/23 20:30 11/22/23 20:30 Pulse Rate 63 Respiratory Rate 24 Blood Pressure 138/64 Pulse Oximetry 95 Medical Decision Making Lab Data Lab results reviewed: Yes I reviewed the patient's lab results. 11/22/23 15:50 11/22/23 15:50 Labs: Lab Results 11/22/23 11/22/23 Range/Units 15:50 16:30 WBC 7.5 (4.5-11.0) X10^3/uL RBC 4.63 (4.0-5.2) X10^6/uL Hgb 13.7 (12.0-16.0) g/dL Hct 39.9 (36-46) % MCV 86.2 (80-100) fL MCH 29.5 (26-34) PG MCHC 34.2 (30-36) % RDW 13.3 (11.6-14.8) % Plt Count 258 (150-400) X10^3/uL Neut % (Auto) 54.0 (50-75) % Lymph % (Auto) 37.0 (25-40) % [place] % (Auto) 5.1 (3-14) % Eos % (Auto) 1.8 L (2-4) % Baso % (Auto) 2.1 H (0-2) % Neut # (Auto) 4000 (2250-2842) /uL Lymph # (Auto) 2800 (4020-2685) /uL [place] # (Auto) 400 (0-900) /uL Eos # (Auto) 100 (0-450) /uL Baso # (Auto) 200 H (0-100) /uL Sodium 137 (137-145) mmol/L Potassium 3.7 (3.4-5.1) mmol/L Chloride 101 (98-107) mmol/L Carbon Dioxide 26 (22-32) mmol/L BUN 21 H (7-17) mg/dL Creatinine 0.47 L (0.52-1.04) mg/dL Estimated GFR > 60 (>60) mL/min BUN/Creatinine Ratio 44.7 H (6-22) Glucose 114 H (80-110) mg/dL Calcium 10.6 H (8.4-10.2) mg/dL Total Bilirubin 0.6 (0.2-1.3) mg/dL AST 28 (14-36) IU/L ALT 27 (<35) IU/L Alkaline Phosphatase 85 (38-126) U/L Ammonia < 9 L (9-30) umol/L Total Creatine Kinase 91 (30-135) U/L Troponin I < 0.012 (0.01-0.034) ng/mL Total Protein 8.9 H (6.3-8.2) g/dL Albumin 4.9 (3.5-5.0) g/dL Globulin 4.0 (1.7-4.1) g/dL Albumin/Globulin Ratio 1.2 (1.0-2.8) Lipase 208 (23-300) U/L Urine Color Yellow Urine Appearance Clear Urine pH 6.0 (4.5-8.0) Ur Specific [place] 1.010 (1.000-1.035) Urine Protein Negative (Negative) Urine Glucose (UA) Negative (Negative) g/dL Urine Ketones Negative (NEGATIVE) Urine Occult Blood Negative (Negative) Urine Nitrate Positive H (Negative) Urine Bilirubin Negative (NEGATIVE) Urine Urobilinogen 0.2 (0.2) E.U./dL Ur Leukocyte Esterase 1+ H (NEGATIVE) Urine RBC 0-1/hpf (0-5/HPF) Urine WBC 1-5/hpf (0-5/HPF) Ur Squamous Epith Cells None seen (0-5/HPF) Urine Bacteria Many (>30) H (None) Ur Culture Indicated? Specimen cultured Vol Urine Centrifuged 10ml (spun) Imaging Data CT scan - abdomen/pelvis: Radiologist's Impression: PROCEDURE: CT ABDOMEN PELVIS W CON INDICATIONS: R sided abd pain TECHNIQUE: After the administration of intravenous contrast, axial sections acquired from the lung bases to the pubic symphysis. Coronal and sagittal reformats were performed. For radiation dose reduction, the following was used: automated exposure control, adjustment of mA and/or kV according to patient size. COMPARISON: None. FINDINGS: Image quality: Diagnostic. Lower Chest: No significant findings. ABDOMEN: Liver: Hepatic steatosis. Hyperattenuating lesion in segment 6 measuring 1 cm (series 2, image 27). Gallbladder: Cholelithiasis with gallbladder distension. No wall thickening. No pericholecystic edema. Biliary ducts: No biliary dilation. Pancreas: No ductal dilation. Spleen: Size is within normal limits. Adrenal Glands: No adrenal nodules. Kidneys and Ureters: No hydronephrosis. No solid mass. No complex renal cystic lesion which requires follow up. 1.1 cm nonobstructing right-sided nephrolithiasis in a pair of 3 mm nonobstructing left-sided nephrolithiasis. No hydronephrosis. Stomach and Bowel: Normal colonic caliber, without significant wall thickening. Normal appendix. Fecal debris within the small bowel. No significant diverticular disease. Peritoneum: No abnormal intraperitoneal fluid. No free air. Ventral Wall: No significant ventral hernia. Abdominal Nodes: No retroperitoneal or mesenteric adenopathy by size criteria. Vessels: Aorta and inferior vena cava are normal in size. PELVIS: Pelvic Organs: Unremarkable. Bladder: No bladder wall thickening, accounting for underdistention. Trace air within the urinary bladder. Pelvic Nodes: No enlarged lymph nodes. Miscellaneous: No inguinal hernias are seen. Bones: No aggressive osseous abnormality. Osteoporosis by Hounsfield units criteria. IMPRESSION: Trace air within the urinary bladder, which may indicate cystitis. Differential includes recent instrumentation. Normal appendix. Fecal debris within the small-bowel, usually indicating small intestinal bacterial overgrowth versus slow transit. Cholelithiasis with gallbladder distension but no wall thickening. Findings could indicate early acute cholecystitis in the correct clinical setting. Hepatic steatosis. Hyperattenuating lesion measuring 1 cm in segment 6. Findings probably represent a hemangioma, but complete characterization with MRI should be considered given underlying steatosis (hepatic mass protocol). US - abdomen: Radiologist's Impression: ROCEDURE: US ABDOMEN LIMITED INDICATIONS: RUQ US eval for GB pathology TECHNIQUE: Real-time scanning was performed of the abdominal and retroperitoneal organs, with image documentation. COMPARISON: [facility], CT, CT ABDOMEN PELVIS W CON, 11/22/2023, 18:25. FINDINGS: Liver: Liver is normal in size. Diffusely increased liver parenchymal echotexture is seen. No discrete hepatic lesion. Gallbladder: Single mobile stone is noted in dependent portion of gallbladder lumen measures 2.1 x 2 x 1.7 cm in size. No gallbladder wall thickening or pericholecystic fluid. No sonographic Muse sign. Biliary ducts: Intrahepatic bile ducts are non-dilated. Extrahepatic bile duct caliber measures 8 mm. Normal is 6-7 mm or less in diameter, or 10 mm or less post-cholecystectomy. Pancreas: Visualized portions of the pancreas are sonographically normal. Miscellaneous: No free abdominal fluid. Right Kidney contains a nonobstructing stone in its upper to midpole measures 1.5 x 1.4 cm in size. No hydronephrosis. IMPRESSION: 1. Cholelithiasis without sonographic evidence of acute cholecystitis. 2. Borderline prominent common bile duct measures 8 mm in diameter. No evidence of choledocholithiasis. 3. Hepatic steatosis, no discrete hepatic lesion. 4. Nonobstructing stone in upper to midpole right kidney. No hydronephrosis. ECG Data Attestation: I personally reviewed and interpreted this ECG as follows: Interpretation: Sinus rhythm Ventricular rate is 63 Normal axis Normal QRS Normal QTC No ST T wave changes MDM Narrative Medical decision making narrative: Patient has normal LFTs normal lipase. Initially her discomfort started in the right side of her umbilicus but now is in the right upper quadrant. She was a very benign exam today with a negative Muse's sign. CT scan shows no acute pathology. She was no urinary symptoms however she does have a nitrite positive urine and thickening of the bladder which could be consistent with a urinary tract infection. Because of this we will start her on antibiotics. She does have cholelithiasis without signs of acute cholecystitis. Her discomfort is in her right upper quadrant and does seem to be somewhat related to eating so we discussed the possibility that she was having symptomatic cholelithiasis. There was no indication for admission to the hospital or surgical consultation today however I do think that she would benefit from follow-up with general surgery. She was given information for this. We discussed diet changes. Discussed return precautions and follow-up instructions and she was instructed to follow up with her primary doctor. She expressed understanding agreement with plan. Discharge Plan Departure Patient Disposition: Home Clinical Impression: Urinary tract infection, Abdominal pain, Cholelithiasis Instructions: DI for Gallstones, DI for Urinary Tract Infection (UTI), DI for Abdominal Pain-Adult Activity Restrictions/Additional Instructions: Take the antibiotics as directed. There was a urine culture pending at the time of discharge we will contact you if we need to change any antibiotics based on this. I do recommend that you contact the General surgery Department of the number provided below for a follow-up to discuss the gallstones that were found in your gallbladder today. Return to the emergency department for new or worsening symptoms. Prescriptions: New cephalexin 500 mg capsule 500 mg PO BID 3 Days Qty: 6 0RF No Action fenofibrate 160 mg tablet 160 mg PO DAILY Qty: 90 3RF cholecalciferol (vitamin D3) 50 mcg (2,000 unit) capsule 5,000 unit PO DAILY calcium 600 mg capsule PO amlodipine 2.5 mg tablet 2.5 mg PO DAILY Qty: 90 2RF hydrochlorothiazide 25 mg tablet 25 mg PO DAILY Qty: 90 2RF levothyroxine 75 mcg tablet 75 mcg PO DAILY Qty: 90 2RF lisinopril 40 mg tablet 40 mg PO DAILY Qty: 90 2RF metformin 500 mg tablet See Rx Instructions PO BID Qty: 240 2RF Rx Instructions: take 1.5 tabs (750mg) in the am, 1 tab (500mg) in the pm loratadine [Allergy Relief (loratadine)] 10 mg tablet 10 mg PO DAILY acetaminophen 325 mg tablet 650 mg PO Q4-6H PRN (Reason: pain) ascorbate calcium (vitamin C) 500 mg tablet 500 mg PO DAILY cyanocobalamin (vitamin B-12) [Vitamin B-12] PO DAILY zinc citrate PO DAILY clobetasol 0.05 % ointment 1 applic TOP .COMPLEX Qty: 30 2RF Rx Instructions: 1 applic topical Twice daily for 2 weeks, then continue once daily estradiol [Estrace] 0.01 % (0.1 mg/gram) cream 0.5 g vaginal QWEEK Qty: 42.5 3RF Rx Instructions: Place 0.5gm in vagina and small amount to the outside once a week Referrals: Kimo Wilson MD [Physician] - Mando Puente ARNP [Primary Care Provider] - Stand Alone Forms: Patient Portal/API
--- NOTE | 2023-11-22 19:17 | DI.US.S_ITS ---
PROCEDURE: US ABDOMEN LIMITED INDICATIONS: RUQ US eval for GB pathology TECHNIQUE: Real-time scanning was performed of the abdominal and retroperitoneal organs, with image documentation. COMPARISON: [facility], CT, CT ABDOMEN PELVIS W CON, 11/22/2023, 18:25. FINDINGS: Liver: Liver is normal in size. Diffusely increased liver parenchymal echotexture is seen. No discrete hepatic lesion. Gallbladder: Single mobile stone is noted in dependent portion of gallbladder lumen measures 2.1 x 2 x 1.7 cm in size. No gallbladder wall thickening or pericholecystic fluid. No sonographic Muse sign. Biliary ducts: Intrahepatic bile ducts are non-dilated. Extrahepatic bile duct caliber measures 8 mm. Normal is 6-7 mm or less in diameter, or 10 mm or less post-cholecystectomy. Pancreas: Visualized portions of the pancreas are sonographically normal. Miscellaneous: No free abdominal fluid. Right Kidney contains a nonobstructing stone in its upper to midpole measures 1.5 x 1.4 cm in size. No hydronephrosis. IMPRESSION: 1. Cholelithiasis without sonographic evidence of acute cholecystitis. 2. Borderline prominent common bile duct measures 8 mm in diameter. No evidence of choledocholithiasis. 3. Hepatic steatosis, no discrete hepatic lesion. 4. Nonobstructing stone in upper to midpole right kidney. No hydronephrosis. Dictated by: Jhon Ortiz M.D. on 11/22/2023 at 20:02 Approved by: Jhon Ortiz M.D. on 11/22/2023 at 20:04
[2023-11-22] MEDS: cephALEXin 250 MG CAPSULE 500 MG PO (20:55)
== END 2023-11-22 21:06 | disposition home or self-care (01) ==
PROVIDERS: Emergency Medicine; Emergency Provider Emergency Medicine; PCP Registered Nurse Diabetes Educator
DX: K80.20 Calculus of gallbladder without cholecystitis without obstruction (principal); N39.0 Urinary tract infection, site not specified; R10.31 Right lower quadrant pain
CPT/HCPCS: 36415; 74177; 76705; 80053; 81001; 82140; 82550; 83690; 84484; 85025; 87077; 87086; 87186; 93005; 93010; 99284; Q9967

== ENCOUNTER → 2023-11-27 11:09 | Outpatient (CLI) | payer MEDICARE, SELFPAY ==
[2023-11-23 11:49] VITALS: BMI 29.2
[2023-11-29 00:07] LABS: Parathyroid Hormone, Intact 24 pg/mL (15-65)
[2023-12-01 12:40] LABS: Alpha-1 Globulin, Ur 1.9 % (.); Beta Globulin, Ur 23.4 % (.); Gamma Globulin, Ur 12.6 % (.); M-Spike % Not Observed % (Not Observed); Urine Total Protein 25.1 mg/dL (Not Estab.)
[2023-12-02 12:36] LABS: Albumin 4.2 g/dL (2.9-4.4); Alpha-1-Globulin 0.2 g/dL (0.0-0.4); Alpha-2-Globulin 0.8 g/dL (0.4-1.0); Gamma Globulin 1.5 g/dL (0.4-1.8); Globulin Total 3.8 g/dL (2.2-3.9)
== END ==
PROVIDERS: PCP Registered Nurse Diabetes Educator; Referring Provider Family Medicine; Visit Provider Family Medicine
DX: E55.9 Vitamin D deficiency, unspecified (principal); E83.52 Hypercalcemia; M81.0 Age-related osteoporosis without current pathological fracture; K80.20 Calculus of gallbladder without cholecystitis without obstruction; R77.9 Abnormality of plasma protein, unspecified
CPT/HCPCS: 36415; 82310; 83970; 84155; 84156; 84165; 84166

== ENCOUNTER 2023-12-08 12:17 | Day surgery (SDC) | payer MEDICARE, SELFPAY ==
[2023-11-23 11:49] VITALS: BMI 29.2
[2023-12-07 10:36] VITALS: BMI 27.4
--- NOTE | 2023-12-08 12:20 | SUR.OPER ---
Supine on padded OR bed, head on pillow, safety belt at thigh, left arm padded and tucked at side. Right arm secured on padded arm board <90 degrees abduction. Legs uncrossed. Padded footboard in place. Tape over blanket to secure lower legs.
[2023-12-08 13:00] VITALS: BP 154/109; PULSE 154; RESP 18; TEMP 36.8; O2SAT 97
--- NOTE | 2023-12-08 13:15 | SUR.PREOP ---
pt arrived to the surgery dept and RN listened to her heart and checked her pulse and noted that pulse was irregular and rapid I asked pt if she had ever had anything wrong with her heart and she stated no. RN put pt on EKG leads and she was in a rapid arial fib. Called anesthsia and let them know. She ordered an EKG and will await pt's EKG result. Pt. is asymptomatic with this and states she has a family history of heart disease.
--- NOTE | 2023-12-08 13:27 | SUR.PREOP ---
pt in rapid a fib with RVR taking pt to the ER and they are going to see her right away. Report given to Oksana GODOY .
--- NOTE | 2023-12-08 13:46 | SUR.PREOP ---
pt transferred to ER. Report given to Denise GODOY
== END 2023-12-08 12:20 | disposition home or self-care (01) ==
PROVIDERS: PCP Registered Nurse Diabetes Educator; Referring Provider Surgery; Visit Provider Surgery
CPT/HCPCS: J0330; J1100; J1885; J2405; J2704; J3010

== ENCOUNTER 2023-12-08 13:32 | Emergency (ER) | payer MEDICARE, SELFPAY ==
[2023-11-23 11:49] VITALS: BMI 29.2
[2023-12-08] VITALS (15 sets, daily range): BP systolic 103–144; BP diastolic 77–102; PULSE 99–160; RESP 11–24; TEMP 37.3; O2SAT 94–98; BMI 27.4
--- NOTE | 2023-12-08 13:20 | EKG_ITS ---
[id number] [place] [address] Test Date: 2023-12-08 Pat Name: Ita Perla Department: Room: Gender: Female Core Setter: Danielle BROWN : 1955 Requested By: Order Number: [id number] Reading MD: Lamin Clark Measurements Intervals [place] Rate: 157 P: OR: QRS: 62 QRSD: 82 T: 251 QT: 260 QTc: 420 Interpretive Statements Critical Test Result: High HR Atrial fibrillation with rapid ventricular response ST & T wave abnormality, consider inferolateral ischemia Electronically Signed On 12-09-2023 18:07:08 PDT by Lamin Clark
--- NOTE | 2023-12-08 13:34 | ED.ARRPALP ---
HPI - Arrhythmia/Palpitations General Chief Complaint: Arrhythmia/Palpitations Stated Complaint: Afib Time Seen by Provider: 12/08/23 13:34 History of Present Illness HPI narrative: Patient is a 68-year-old female history of high for tension diabetes hypothyroidism presents from the outpatient surgical site here for new onset AFib with RVR. Patient states that she was not having any symptoms but was in the preop area and they state they were doing her vitals and noticed that she was in AFib with RVR. She denies any actual chest pain shortness breath no symptoms at this time. Blood pressure stable. At time of evaluation patient states that she has not feeling any symptoms. States that she does have a family history of AFib but states that she does not have a personal history is not on any blood thinners. She was apparently supposed to have a laparoscopic jenn. Related Data Home Medications Medication Instructions Recorded Confirmed ascorbate calcium (vitamin C) 500 500 mg PO DAILY 03/21/21 12/02/23 mg tablet cholecalciferol (vitamin D3) 50 5,000 unit PO DAILY 03/21/21 12/02/23 mcg (2,000 unit) capsule cyanocobalamin (vitamin B-12) PO DAILY 01/28/22 12/02/23 [Vitamin B-12] zinc citrate PO DAILY 01/28/22 12/02/23 loratadine 10 mg tablet (Allergy 10 mg PO DAILY 03/20/23 12/02/23 Relief (loratadine)) acetaminophen 325 mg tablet 650 mg PO Q4-6H PRN pain 04/30/23 12/02/23 calcium 600 mg capsule mg PO 09/08/23 12/02/23 Previous Rx's Medication Instructions Recorded clobetasol 0.05 % topical ointment 1 applic topical .COMPLEX #30 grams 12/03/22 fenofibrate 160 mg tablet 160 mg PO DAILY #90 tabs 06/24/23 estradiol 0.01% (0.1 mg/gram) 0.5 g vaginal QWEEK #42.5 grams 07/16/23 vaginal cream (Estrace) amlodipine 2.5 mg tablet 2.5 mg PO DAILY #90 tabs 09/08/23 hydrochlorothiazide 25 mg tablet 25 mg PO DAILY #90 tabs 09/08/23 levothyroxine 75 mcg tablet 75 mcg PO DAILY #90 tabs 09/08/23 lisinopril 40 mg tablet 40 mg PO DAILY #90 tabs 09/08/23 metformin 500 mg tablet See Rx Instructions PO BID #240 09/08/23 tabs apixaban 5 mg tablet (Eliquis) 5 mg PO BID 1 month #60 tabs 12/08/23 metoprolol succinate 50 mg capsule 50 mg PO DAILY 1 month #30 ea 12/08/23 sprinkle, ext. release 24 hr Allergies Allergy/AdvReac Type Severity Reaction Status Date / Time azithromycin Allergy Mild Rash Verified 12/08/23 13:38 Review of Systems Review of Systems Narrative: General: Denies fever, chills, weight loss HEENT: Denies headache, eye drainage, eye irritation, head trauma, sore throat, voice change Cardiovascular: Denies any chest pain, palpitations, shortness of breath, positive for tachycardia Respiratory: Denies any shortness of breath, cough, wheeze, stridor GI/: Denies any abdominal pain, nausea, vomiting, diarrhea, bright red blood per rectum, melanotic stools, urinary frequency, urinary retention, dysuria, hematuria MSK: Denies any joint pain, muscle pains, swelling Skin: Denies any rashes, lesions, discoloration Neuro: Denies any headache, lightheadedness, dizziness, fainting, weakness Psych: Denies SI/HI Patient History Medical History (Updated 12/08/23 @ 14:18 by Lamin Edmond DO) Dyslipidemia Osteoporosis Colon cancer screening declined (11/2019) Allergies Knee pain Intrauterine pessary (~2018) Vitamin D deficiency (07/2019) Screening for malignant neoplasm of colon (02/2021) Type 2 diabetes mellitus (07/2019) Essential hypertension (1989) Acquired hypothyroidism Surgical History (Updated 12/07/23 @ 10:45 by Ghada Galdamez RN) H/O: hysterectomy Anesthesia Status post bunionectomy Status post breast biopsy Status post endometrial ablation Family History Father Diabetes mellitus Heart disease Pancreatitis Heart attack Hyperlipidemia Hypertension Grandfather Heart disease Cancer Grandmother Heart disease Mother Heart disease Hypertension Hyperlipidemia Grandmother Heart disease Hypertension Sister Age: 63 Hypertension Brother Heart disease Brother Heart disease Brother Heart disease Social History household members: spouse Smoking Status: Former smoker alcohol intake: never eating out: 1-3 times/week Type(s) of exercise: walking Smoking Status: Former smoker Substance Use Type: does not use Exam Narrative Exam Narrative: General: Cooperative, comfortable, well-developed, not in acute distress HEENT: Normocephalic, atraumatic, PERRLA, normal sclera, eyelids normal, Neck: Active full range of motion, atraumatic Chest: Normal to inspection, negative crepitus, no overlying erythema ecchymosis Respiratory: Normal respiratory effort, not in acute respiratory distress, clear to auscultation bilaterally negative cough, wheeze, tachypnea, rhonchi, rales Cardiology: Tachycardic, irregularly irregular GI/: Normal to inspection, soft, nonrigid, no tenderness to palpation, exam deferred MSK: Full range of active range of motion of all 4 extremities, atraumatic Skin: No rashes lesions noted Neuro: Alert awake oriented x3, moves all 4 extremities spontaneously, cranial nerves intact, able to answer all questions appropriately follows commands appropriately Psych: Cooperative, negative suicidal or homicidal ideations Initial Vital Signs Initial Vital Signs: Vital Signs Temperature 99.2 F 12/08/23 13:32 Pulse Rate 158 H 12/08/23 13:32 Respiratory Rate 13 12/08/23 13:32 Blood Pressure 142/87 H 12/08/23 13:32 Pulse Oximetry 98 12/08/23 13:32 Oxygen Delivery Method Room Air 12/08/23 13:32 Course Orders Ordered: ED Orders 12/08/23 13:20 EKG-12 Lead Routine 12/08/23 13:41 Complete Blood Count AUTO DIFF Stat Comprehensive Metabolic Panel Stat MAG [Magnesium] Stat PTT Partial Thromboplastin Juan Carlos Stat Prothrombin Time INR Stat Troponin & CK Cardiac Panel Stat 12/08/23 13:42 XR chest 1V Stat EKG-12 Lead Stat Sodium Chloride (Normal Saline 0.9%) 1,000 mls @ 500 mls/hr IV BOLUS ONE Stop: 12/08/23 16:23 Last Admin: 12/08/23 14:36 Dose: Not Given Documented By: KM Discontinued Medications Apixaban (Apixaban 5 Mg Tablet) 5 mg PO NOW ONE Stop: 12/08/23 15:49 Magnesium Sulfate (Magnesium Sulfate) 2 gm in 50 mls @ 150 mls/hr IV NOW ONE Stop: 12/08/23 14:02 Last Infusion: 12/08/23 14:30 Dose: Infused Documented By: JESENIA Co-signed By: FRANCISCO Admin: 12/08/23 14:09 Dose: 150 mls/hr Documented By: JESENIA Co-signed By: FRANCISCO Sodium Chloride (Normal Saline 0.9%) 500 mls @ 1,000 mls/hr IV BOLUS ONE Stop: 12/08/23 15:03 Last Infusion: 12/08/23 15:29 Dose: Infused Documented By: Admin: 12/08/23 14:36 Dose: 1,000 mls/hr Documented By: JESENIA Magnesium Sulfate (Magnesium Sulfate) 2 gm in 50 mls @ 150 mls/hr IV NOW ONE Stop: 12/08/23 15:12 Last Admin: 12/08/23 15:22 Dose: 150 mls/hr Documented By: JESENIA Co-signed By: FRANCISCO Metoprolol Tartrate (Metoprolol Tartrate 5 Mg/5 Ml Inj) 10 mg IV NOW ONE Stop: 12/08/23 13:49 Last Admin: 12/08/23 13:55 Dose: 10 mg Documented By: JESENIA Metoprolol Tartrate (Metoprolol Tartrate 5 Mg/5 Ml Inj) 5 mg IV NOW ONE Stop: 12/08/23 14:10 Last Admin: 12/08/23 14:24 Dose: 5 mg Documented By: JESENIA Metoprolol Tartrate (Metoprolol Ir 25 Mg Tablet) 50 mg PO NOW ONE Stop: 12/08/23 14:59 Last Admin: 12/08/23 15:22 Dose: 50 mg Documented By: JESENIA Vital Signs Vital signs: Vital Signs - 8 hr 12/08/23 13:32 12/08/23 13:36 12/08/23 14:00 Temperature 99.2 F Pulse Rate 158 H 160 H Respiratory Rate 13 11 L Blood Pressure 142/87 H 127/95 H Pulse Oximetry 98 98 Oxygen Delivery Method Room Air 12/08/23 14:00 12/08/23 14:05 12/08/23 14:05 Temperature Pulse Rate 134 H 129 H Respiratory Rate 19 18 Blood Pressure 144/102 H Pulse Oximetry 97 97 Oxygen Delivery Method 12/08/23 14:10 12/08/23 14:10 12/08/23 14:15 Temperature Pulse Rate 130 H Respiratory Rate 17 Blood Pressure 103/77 125/81 Pulse Oximetry 97 Oxygen Delivery Method 12/08/23 14:15 12/08/23 14:20 12/08/23 14:20 Temperature Pulse Rate 122 H 121 H Respiratory Rate 11 L 15 Blood Pressure 121/95 H Pulse Oximetry 96 94 Oxygen Delivery Method 12/08/23 14:30 12/08/23 14:30 12/08/23 14:45 Temperature Pulse Rate 119 H Respiratory Rate 14 Blood Pressure 127/98 H 117/96 H Pulse Oximetry 97 Oxygen Delivery Method 12/08/23 14:45 12/08/23 15:00 12/08/23 15:01 Temperature Pulse Rate 119 H 118 H 118 H Respiratory Rate 14 13 16 Blood Pressure Pulse Oximetry 96 97 97 Oxygen Delivery Method 12/08/23 15:01 12/08/23 15:15 12/08/23 15:15 Temperature Pulse Rate 119 H Respiratory Rate 16 Blood Pressure 124/94 H 130/88 Pulse Oximetry 97 Oxygen Delivery Method 12/08/23 15:30 Temperature Pulse Rate 118 H Respiratory Rate 17 Blood Pressure Pulse Oximetry 98 Oxygen Delivery Method MDM - Arrhythmia/Palpitations Differential Diagnosis Differential diagnosis: Likely palpitations, artial fibrillation and other (Electrolyte abnormality) Lab Data 12/08/23 13:41 12/08/23 13:41 Labs: Lab Results 12/08/23 Range/Units 13:41 WBC 7.6 (4.5-11.0) X10^3/uL RBC 4.69 (4.0-5.2) X10^6/uL Hgb 13.7 (12.0-16.0) g/dL Hct 40.0 (36-46) % MCV 85.2 (80-100) fL MCH 29.2 (26-34) PG MCHC 34.3 (30-36) % RDW 13.0 (11.6-14.8) % Plt Count 243 (150-400) X10^3/uL Neut % (Auto) 52.6 (50-75) % Lymph % (Auto) 38.9 (25-40) % Stokes % (Auto) 6.7 (3-14) % Eos % (Auto) 1.3 L (2-4) % Baso % (Auto) 0.5 (0-2) % Neut # (Auto) 4000 (0915-2065) /uL Lymph # (Auto) 3000 (2856-5590) /uL Stokes # (Auto) 500 (0-900) /uL Eos # (Auto) 100 (0-450) /uL Baso # (Auto) 0 (0-100) /uL PT 11.8 (9.4-12.5) SECONDS INR 1.0 (0.9-1.3) APTT 39 H (25.1-36.5) SECONDS Sodium 140 (137-145) mmol/L Potassium 4.1 (3.4-5.1) mmol/L Chloride 104 (98-107) mmol/L Carbon Dioxide 26 (22-32) mmol/L BUN 25 H (7-17) mg/dL Creatinine 0.57 (0.52-1.04) mg/dL Estimated GFR > 60 (>60) mL/min BUN/Creatinine Ratio 43.9 H (6-22) Glucose 140 H (80-110) mg/dL Calcium 10.4 H (8.4-10.2) mg/dL Magnesium 1.7 (1.6-2.3) mg/dL Total Bilirubin 0.4 (0.2-1.3) mg/dL AST 25 (14-36) IU/L ALT 23 (<35) IU/L Alkaline Phosphatase 77 (38-126) U/L Total Creatine Kinase 52 (30-135) U/L Troponin I < 0.012 (0.01-0.034) ng/mL Total Protein 8.5 H (6.3-8.2) g/dL Albumin 4.9 (3.5-5.0) g/dL Globulin 3.6 (1.7-4.1) g/dL Albumin/Globulin Ratio 1.4 (1.0-2.8) Imaging Data Chest x-ray: Radiologist's Impresson: [address] [address] XRay Report Signed Patient: Ita Perla MR#: [id number] : 1955 Acct:[id number] Age/Sex: 68 / F Date of Service: 12/08/23 Loc: ED Accession Number: [id number] Procedure: XR chest 1V Ordering Provider: Lamin Edmond D.O. PROCEDURE: XR CHEST 1V INDICATIONS: palpitations TECHNIQUE: One view of the chest was acquired. COMPARISON: None. FINDINGS: Surgical changes and devices: None. Lungs and pleura: Lungs are clear. No pleural effusions or pneumothorax. Mediastinum: Mediastinal contours appear normal. Heart size is normal. Bones and chest wall: No suspicious bony lesions. Overlying soft tissues appear unremarkable. IMPRESSION: No acute pulmonary process. ECG Data Attestation: I personally reviewed and interpreted this ECG as follows: Interpretation: EKG interpreted ED physician atrial fibrillation 161 beats per minute QTC 461, normal axis, nonspecific ST changes no STEMI MDM Narrative Medical decision making narrative: Patient 68-year-old female history of hypothyroidism hyperlipidemia hypertension diabetes with a CHADS-VASc of 4 presents from the OR preoperative area, patient was supposed to have a elective laparoscopic jenn for symptomatic cholelithiasis, however during the preop session it was noted that patient was tachycardic, EKG was performed and showed AFib with RVR. Patient was completely asymptomatic blood pressure was normotensive. Lab work without any leukocytosis, electrolytes within normal range. Trop negative. EKG nonischemic. In the emergency department patient received IV metoprolol 5 mg x3 , Also received 4g of IV magnesium. She was monitored here for approximately 1 hour and has sustained under 110 beats per minute. Patient will be sent home on 50 mg of metoprolol, informed her to stop taking her other antihypertensives in lieu of new medication. Informed her that we will start her on anticoagulation with Eliquis given elevated CHADS-VASc score. He was instructed follow up with Cardiology in outpatient setting she verbalized understanding of this and agrees to being discharged home with outpatient follow up Given patient with elevated CHADS-VASc will start patient on Eliquis as well as start patient on beta saige and instructed to follow up with outpatient Cardiology. Discharge Plan Departure Patient Disposition: Home Clinical Impression: New onset a-fib Activity Restrictions/Additional Instructions: Please follow up with cardiology for your new onset afib Please read the discharge instructions sheet carefully and bring all papers to all doctor follow-up visits, as it may contain information that your doctor may want to see. Disease processes change and evolve, if your symptoms worsen or if you develop any new symptoms that are concerning to you please return for evaluation. Your evaluation today does not show any evidence of any life-threatening/serious illnesses requiring admission to the hospital or surgery. Please follow-up with your doctor for re-evaluation in approximately 1 day. Seek immediate medical attention for any worrisome symptoms. Prescriptions: New metoprolol succinate 50 mg capsule,sprinkle,ER 24hr 50 mg PO DAILY 30 Days Qty: 30 0RF Eliquis 5 mg tablet 5 mg PO BID 30 Days Qty: 60 0RF No Action fenofibrate 160 mg tablet 160 mg PO DAILY Qty: 90 3RF cholecalciferol (vitamin D3) 50 mcg (2,000 unit) capsule 5,000 unit PO DAILY calcium 600 mg capsule PO amlodipine 2.5 mg tablet 2.5 mg PO DAILY Qty: 90 2RF hydrochlorothiazide 25 mg tablet 25 mg PO DAILY Qty: 90 2RF levothyroxine 75 mcg tablet 75 mcg PO DAILY Qty: 90 2RF lisinopril 40 mg tablet 40 mg PO DAILY Qty: 90 2RF metformin 500 mg tablet See Rx Instructions PO BID Qty: 240 2RF Rx Instructions: take 1.5 tabs (750mg) in the am, 1 tab (500mg) in the pm loratadine [Allergy Relief (loratadine)] 10 mg tablet 10 mg PO DAILY acetaminophen 325 mg tablet 650 mg PO Q4-6H PRN (Reason: pain) ascorbate calcium (vitamin C) 500 mg tablet 500 mg PO DAILY cyanocobalamin (vitamin B-12) [Vitamin B-12] PO DAILY zinc citrate PO DAILY clobetasol 0.05 % ointment 1 applic TOP .COMPLEX Qty: 30 2RF Rx Instructions: 1 applic topical Twice daily for 2 weeks, then continue once daily estradiol [Estrace] 0.01 % (0.1 mg/gram) cream 0.5 g vaginal QWEEK Qty: 42.5 3RF Rx Instructions: Place 0.5gm in vagina and small amount to the outside once a week Referrals: Alhaji Proctor MD [Physician] - (New onset afib) Mando Puente ARNP [Primary Care Provider] - Stand Alone Forms: Patient Portal/API
--- NOTE | 2023-12-08 13:42 | DI.RAD.S_ITS ---
PROCEDURE: XR CHEST 1V INDICATIONS: palpitations TECHNIQUE: One view of the chest was acquired. COMPARISON: None. FINDINGS: Surgical changes and devices: None. Lungs and pleura: Lungs are clear. No pleural effusions or pneumothorax. Mediastinum: Mediastinal contours appear normal. Heart size is normal. Bones and chest wall: No suspicious bony lesions. Overlying soft tissues appear unremarkable. IMPRESSION: No acute pulmonary process. Dictated by: Edith Beltrán M.D. on 12/08/2023 at 14:13 Approved by: Edith Beltrán M.D. on 12/08/2023 at 14:16
--- NOTE | 2023-12-08 13:46 | EKG_ITS ---
[facility] [address] [place] [id number] Test Date: 2023-12-08 Pat Name: Ita Perla Department: Room: Gender: Female Internal Medicine Doctor: NADIYA : 1955 Requested By: Order Number: [id number] Reading MD: Lamin Clark Measurements Intervals [place] Rate: 161 P: [place]: QRS: 66 QRSD: 84 T: 255 QT: 282 QTc: 461 Interpretive Statements Critical Test Result: High HR Atrial fibrillation with rapid ventricular response ST & T wave abnormality, consider inferolateral ischemia Electronically Signed On 12-09-2023 18:07:11 PDT by Lamin Clark
[2023-12-08 13:48] LABS: Add Manual Diff / Slide Review NO; Basophils Absolute Auto 0 /uL (0-100); Basophils Percent Auto 0.5 % (0-2); Eosinophils Absolute Auto 100 /uL (0-450); Eosinophils Percent Auto 1.3 % (2-4); Hemoglobin 13.7 g/dL (12.0-16.0); Lymphocytes Absolute Auto 3000 /uL (1100-4500); Lymphocytes Percent Auto 38.9 % (25-40); Mean Corpuscular HGB Conc 34.3 % (30-36); Mean Corpuscular Hemoglobin 29.2 PG (26-34); Mean Corpuscular Volume 85.2 fL (80-100); Monocytes Absolute Auto 500 /uL (0-900); Monocytes Percent Auto 6.7 % (3-14); Neutrophils Absolute Auto 4000 /uL (1500-7000); Neutrophils Percent Auto 52.6 % (50-75); Platelet Count 243 X10^3/uL (150-400); Red Blood Cell Count 4.69 X10^6/uL (4.0-5.2); White Blood Cell Count 7.6 X10^3/uL (4.5-11.0)
[2023-12-08] MEDS: METOPROLOL TARTRATE 5 MG/5 ML INJ 10 MG IV (13:55)
[2023-12-08 13:57] LABS: Prothrombin Time 11.8 SECONDS (9.4-12.5)
[2023-12-08 13:59] LABS: PTT Partial Thromboplastin Tim 39 SECONDS (25.1-36.5)
[2023-12-08 14:01] LABS: Alanine Aminotransferase 23 IU/L (<35); Albumin 4.9 g/dL (3.5-5.0); Albumin Globulin Ratio 1.4 (1.0-2.8); Alkaline Phosphatase 77 U/L (38-126); Aspartate Aminotransferase 25 IU/L (14-36); BUN Creatinine Ratio 43.9 (6-22); Bilirubin Total 0.4 mg/dL (0.2-1.3); Blood Urea Nitrogen 25 mg/dL (7-17); Calcium 10.4 mg/dL (8.4-10.2); Carbon Dioxide 26 mmol/L (22-32); Chloride 104 mmol/L (98-107); Creatine Kinase 52 U/L (30-135); Estimated Glomerular Filt Rate > 60 mL/min (>60); Globulin 3.6 g/dL (1.7-4.1); Glucose 140 mg/dL (80-110); HEMOLYSIS < 15 (0-50); Magnesium 1.7 mg/dL (1.6-2.3); Potassium 4.1 mmol/L (3.4-5.1); Sodium 140 mmol/L (137-145); Total Protein 8.5 g/dL (6.3-8.2)
[2023-12-08] MEDS: MAGNESIUM SULFATE 2 GM/50 ML PIGGYBACK IV ×2 (14:09→15:22)
[2023-12-08 14:12] LABS: Troponin I < 0.012 ng/mL (0.01-0.034)
[2023-12-08] MEDS: METOPROLOL TARTRATE 5 MG/5 ML INJ IV (14:24)
[2023-12-08] MEDS: SODIUM CHLORIDE 0.9% 500 ML 1000 ML IV (14:36)
[2023-12-08] MEDS: METOPROLOL IR 25 MG TABLET 50 MG PO (15:22)
[2023-12-08] MEDS: APIXABAN 5 MG TABLET PO (15:59)
== END 2023-12-08 16:30 | disposition home or self-care (01) ==
PROVIDERS: Emergency Provider Student in an Organized Health Care Education/Training Program; PCP Registered Nurse Diabetes Educator
DX: I48.91 Unspecified atrial fibrillation (principal); R00.2 Palpitations; Z79.01 Long term (current) use of anticoagulants; Z79.899 Other long term (current) drug therapy
CPT/HCPCS: 36415; 71045; 80053; 82550; 83735; 84484; 85025; 85610; 85730; 93005; 96361; 96374; 96376; 99284; J3475

== ENCOUNTER 2023-12-19 21:11 | Inpatient (IN) | payer MEDICARE, SELFPAY ==
[2023-11-23 11:49] VITALS: BMI 29.2
[2023-12-19] VITALS (10 sets, daily range): BP systolic 125–181; BP diastolic 75–106; PULSE 117–162; RESP 12–19; TEMP 36.1; O2SAT 92–98; BMI 27.0
--- NOTE | 2023-12-19 21:23 | EKG_ITS ---
[facility] [address] [place] [address] Test Date: 2023-12-19 Pat Name: Ita Perla Department: [facility] Room: Gender: Female Field Service Supervisor: [facility] : 1955 Requested By: Order Number: [id number] Reading MD: Lamin Clark Measurements Intervals [place] Rate: 167 P: [place]: QRS: 63 QRSD: 78 T: 248 QT: 286 QTc: 477 Interpretive Statements Critical Test Result: High HR Atrial fibrillation with rapid ventricular response with premature ventricular or aberrantly conducted complexes ST & T wave abnormality, consider inferolateral ischemia Electronically Signed On 12-22-2023 14:43:24 PDT by Lamin Clark
--- NOTE | 2023-12-19 21:23 | DI.RAD.S_ITS ---
PROCEDURE: XR CHEST 1V INDICATIONS: chest pain TECHNIQUE: One view of the chest was acquired. COMPARISON: [facility], CR, XR CHEST 1V, 12/08/2023, 13:45. FINDINGS: Surgical changes and devices: None. Lungs and pleura: Lungs are clear. No pleural effusions or pneumothorax. Mediastinum: Mediastinal contours appear normal. Heart size is normal. Bones and chest wall: No suspicious bony lesions. Overlying soft tissues appear unremarkable. IMPRESSION: No acute pulmonary process. Dictated by: Edith Beltrán M.D. on 12/19/2023 at 22:11 Approved by: Edith Beltrán M.D. on 12/19/2023 at 22:11
[2023-12-19 21:48] LABS: Add Manual Diff / Slide Review NO; Basophils Absolute Auto 0 /uL (0-100); Basophils Percent Auto 0.5 % (0-2); Eosinophils Absolute Auto 200 /uL (0-450); Eosinophils Percent Auto 2.1 % (2-4); Hemoglobin 13.9 g/dL (12.0-16.0); Lymphocytes Absolute Auto 3000 /uL (1100-4500); Lymphocytes Percent Auto 41.6 % (25-40); Mean Corpuscular Hemoglobin 29.4 PG (26-34); Mean Corpuscular Volume 86.4 fL (80-100); Monocytes Absolute Auto 400 /uL (0-900); Monocytes Percent Auto 5.8 % (3-14); Neutrophils Absolute Auto 3600 /uL (1500-7000); Platelet Count 235 X10^3/uL (150-400); Red Blood Cell Count 4.74 X10^6/uL (4.0-5.2); Red Cell Distribution Width 13.5 % (11.6-14.8); White Blood Cell Count 7.2 X10^3/uL (4.5-11.0)
[2023-12-19 21:55] LABS: Alanine Aminotransferase 23 IU/L (<35); Albumin 5.1 g/dL (3.5-5.0); Albumin Globulin Ratio 1.2 (1.0-2.8); Alkaline Phosphatase 86 U/L (38-126); Aspartate Aminotransferase 25 IU/L (14-36); BUN Creatinine Ratio 45.5 (6-22); Bilirubin Total 0.4 mg/dL (0.2-1.3); Blood Urea Nitrogen 25 mg/dL (7-17); Calcium 10.9 mg/dL (8.4-10.2); Carbon Dioxide 27 mmol/L (22-32); Chloride 103 mmol/L (98-107); Creatine Kinase 62 U/L (30-135); Estimated Glomerular Filt Rate > 60 mL/min (>60); Globulin 4.3 g/dL (1.7-4.1); Glucose 149 mg/dL (80-110); HEMOLYSIS < 15 (0-50); Lipase 215 U/L (23-300); Magnesium 1.6 mg/dL (1.6-2.3); Potassium 3.5 mmol/L (3.4-5.1); Sodium 141 mmol/L (137-145); Total Protein 9.4 g/dL (6.3-8.2)
[2023-12-19 21:59] LABS: INR 1.8 (0.9-1.3); Prothrombin Time 21.3 SECONDS (9.4-12.5)
[2023-12-19 22:01] LABS: PTT Partial Thromboplastin Tim 58 SECONDS (25.1-36.5)
[2023-12-19 22:07] LABS: NT-proBNP (BNP-Adult 18+) 622 pg/mL (<125); Troponin I < 0.012 ng/mL (0.01-0.034)
--- NOTE | 2023-12-19 22:22 | ED.ARRPALP ---
HPI - Arrhythmia/Palpitations General Chief Complaint: Arrhythmia/Palpitations Stated Complaint: afib trouble breathing Time Seen by Provider: 12/19/23 22:19 Source: patient Mode of arrival: Family Vehicle History of Present Illness HPI narrative: 68-year-old female recalls new diagnosis of atrial fibrillation 12/06/2023 when she was evaluated preoperatively for elective cholecystectomy, found to be in atrial fibrillation as a new diagnosis, was discharged eventually on metoprolol and on Xarelto chronic anticoagulation, she had low heart rate symptoms, 12/14/2023 had reduction in metoprolol dose from 50 to 25 mg long-acting once daily, taking same lisinopril and Xarelto. This afternoon she felt heart rate palpitations and racing sensation. No chest discomfort. No shortness of breath. No syncope or presyncope. No pain to neck arm or jaw. No trauma or injury. No fevers or chills. No cough. No painful urination or frequency of urination. No recent loose stools or black stools. No nausea or vomiting. Related Data Home Medications Medication Instructions Recorded Confirmed loratadine 10 mg tablet (Allergy 10 mg PO DAILY 03/20/23 12/20/23 Relief (loratadine)) acetaminophen 325 mg tablet 650 mg PO Q4-6H PRN pain 04/30/23 12/20/23 metformin 500 mg tablet 500 mg PO BID 12/20/23 12/20/23 metoprolol succinate 50 mg 25 mg PO DAILY 12/20/23 12/20/23 tablet,extended release 24 hr rivaroxaban 20 mg tablet (Xarelto) 20 mg PO DAILY 12/20/23 12/20/23 Previous Rx's Medication Instructions Recorded fenofibrate 160 mg tablet 160 mg PO DAILY #90 tabs 06/24/23 levothyroxine 75 mcg tablet 75 mcg PO DAILY #90 tabs 09/08/23 lisinopril 20 mg tablet 20 mg PO DAILY #30 tabs 12/10/23 Allergies Allergy/AdvReac Type Severity Reaction Status Date / Time azithromycin Allergy Mild Rash Verified 12/19/23 21:21 Review of Systems Review of Systems Narrative: See HPI Patient History Medical History Dyslipidemia Osteoporosis Colon cancer screening declined (11/2019) Allergies Knee pain Intrauterine pessary (~2018) Vitamin D deficiency (07/2019) Screening for malignant neoplasm of colon (02/2021) Type 2 diabetes mellitus (07/2019) Essential hypertension (1989) Acquired hypothyroidism Surgical History H/O: hysterectomy Anesthesia Status post bunionectomy Status post breast biopsy Status post endometrial ablation Family History Father Diabetes mellitus Heart disease Pancreatitis Heart attack Hyperlipidemia Hypertension Grandfather Heart disease Cancer Grandmother Heart disease Mother Heart disease Hypertension Hyperlipidemia Grandmother Heart disease Hypertension Sister Age: 63 Hypertension Brother Heart disease Brother Heart disease Brother Heart disease Social History household members: spouse Smoking Status: Former smoker alcohol intake: never eating out: 1-3 times/week Type(s) of exercise: walking Smoking Status: Former smoker tobacco type: cigarettes alcohol intake frequency: other Substance Use Type: does not use Exam Narrative Exam Narrative: GENERAL: Well-developed patient, in mild distress. HEAD: Atraumatic. Normocephalic. EYES: Pupils equal round and reactive. Extraocular motions intact. No scleral icterus. No injection or drainage. ENT: Nose without bleeding, purulent drainage. Throat without erythema, tonsillar hypertrophy or exudate. Airway patent. NECK: Trachea midline. Non tender CARDIOVASCULAR: Fast rate irregular rhythm without murmurs, gallops, or rubs. RESPIRATORY: Clear to auscultation. Breath sounds equal bilaterally. No wheezes, rales, or rhonchi. GASTROINTESTINAL: Abdomen soft, non-tender, nondistended. EXTREMITIES: No edema or joint tenderness. BACK: Nontender without deformity or crepitance. No flank tenderness. NEURO: AOx3. Motor functions grossly nonfocal SKIN: No rash or erythema of visible areas Initial Vital Signs Initial Vital Signs: Vital Signs Temperature 97 F L 12/19/23 21:18 Pulse Rate 162 H 12/19/23 21:18 Respiratory Rate 19 12/19/23 21:18 Blood Pressure 171/106 H 12/19/23 21:18 Pulse Oximetry 98 12/19/23 21:18 Oxygen Delivery Method Room Air 12/19/23 21:18 Course Orders Ordered: Acetaminophen (Acetaminophen 325 Mg Tablet) 650 mg PO Q6H PRN PRN Reason: Fever/Mild Pain (1-3) Fenofibrate (Fenofibrate, Micronized 67 Mg Capsule) 201 mg PO DAILY [facility] Last Admin: 12/20/23 08:57 Dose: 201 mg Documented By: KAVON Diltiazem HCl 125 mg/ Sodium (Chloride) 125 mls @ 5 mls/hr IV TITRATE [facility]; Protocol Last Admin: 12/20/23 08:21 Dose: 5 mg/hr, 5 mls/hr Documented By: Titration: 12/20/23 08:21 Dose: Infused Documented By: Titration: 12/20/23 06:03 Dose: 5 mg/hr, 5 mls/hr Documented By: Titration: 12/20/23 04:35 Dose: 10 mg/hr, 10 mls/hr Documented By: Titration: 12/20/23 00:42 Dose: 15 mg/hr, 15 mls/hr Documented By: Titration: 12/19/23 23:45 Dose: 10 mg/hr, 10 mls/hr Documented By: Admin: 12/19/23 22:31 Dose: 5 mg/hr, 5 mls/hr Documented By: PRATIMA Dextrose (D10w) 100 mls @ 999 mls/hr IV PRN PRN PRN Reason: Hypoglycemia Magnesium Sulfate (Magnesium Sulfate) 2 gm in 50 mls @ 25 mls/hr IV NOW ONE Stop: 12/20/23 17:52 Insulin Human Lispro (Insulin Lispro 100 Unit/Ml 3ml Vial) 0 unit SUBCUT ACHS [facility]; Protocol Last Admin: 12/20/23 12:21 Dose: 1 unit Documented By: KAVON Co-signed By: DEN Admin: 12/20/23 08:16 Dose: Not Given Documented By: KAVON Levothyroxine Sodium (Levothyroxine 75 Mcg Tablet) 75 mcg PO DAILY@0600 [facility] Metoprolol Succinate (Metoprolol Er 25 Mg Tablet) 25 mg PO BID [facility] Last Admin: 12/20/23 08:56 Dose: 25 mg Documented By: KAVON Metoprolol Tartrate (Metoprolol Tartrate 5 Mg/5 Ml Inj) 5 mg IV Q4H PRN PRN Reason: Heart Rate- High Naloxone HCl (Naloxone 0.4 Mg/Ml Vial) 0.2 mg IV Q2MIN PRN PRN Reason: Opiate Reversal Rivaroxaban (Rivaroxaban 10 Mg Tablet) 20 mg PO BEDTIME SD Discontinued Medications Aspirin (Aspirin 81 Mg Chew Tab) 324 mg PO NOW ONE Stop: 12/19/23 21:24 Last Admin: 12/19/23 21:48 Dose: Not Given Documented By: PRATIMA Diltiazem HCl (Diltiazem 25 Mg/5 Ml Sdv) 20 mg IV NOW ONE Stop: 12/19/23 22:22 Last Admin: 12/19/23 22:31 Dose: 20 mg Documented By: PRATIMA Vital Signs Vital signs: Vital Signs - 8 hr 12/19/23 21:18 12/19/23 21:38 12/19/23 21:39 Temperature 97 F L Pulse Rate 162 H 161 H Respiratory Rate 19 Blood Pressure 171/106 H 181/101 H Pulse Oximetry 98 94 Oxygen Delivery Method Room Air 12/19/23 21:39 12/19/23 22:00 12/19/23 22:30 Temperature Pulse Rate 159 H 149 H 149 H Respiratory Rate 12 13 15 Blood Pressure Pulse Oximetry 96 94 94 Oxygen Delivery Method Room Air 12/19/23 22:39 12/19/23 22:39 12/19/23 23:00 Temperature Pulse Rate 121 H 127 H Respiratory Rate 12 14 Blood Pressure 125/84 Pulse Oximetry 96 92 Oxygen Delivery Method Room Air 12/19/23 23:02 12/19/23 23:02 12/19/23 23:30 Temperature Pulse Rate 125 H 117 H Respiratory Rate 13 12 Blood Pressure 128/75 Pulse Oximetry 96 95 Oxygen Delivery Method 12/19/23 23:33 12/19/23 23:33 Temperature Pulse Rate 136 H Respiratory Rate 13 Blood Pressure 143/86 H Pulse Oximetry 96 Oxygen Delivery Method MDM - Arrhythmia/Palpitations Lab Data Attestation: I reviewed the patient's lab results. Lab results narrative: White blood cell count 39469, hemoglobin 13.9, platelets adequate. Basic metabolic panel unremarkable, liver functions normal. Lipase normal. BNP 622. Troponin negative. Urine dip negative 12/20/23 05:25 12/20/23 05:25 Labs: Lab Results 12/19/23 12/19/23 Range/Units 21:35 23:35 WBC 7.2 (4.5-11.0) X10^3/uL RBC 4.74 (4.0-5.2) X10^6/uL Hgb 13.9 (12.0-16.0) g/dL Hct 41.0 (36-46) % MCV 86.4 (80-100) fL MCH 29.4 (26-34) PG MCHC 34.0 (30-36) % RDW 13.5 (11.6-14.8) % Plt Count 235 (150-400) X10^3/uL Neut % (Auto) 50.0 (50-75) % Lymph % (Auto) 41.6 H (25-40) % Cole % (Auto) 5.8 (3-14) % Eos % (Auto) 2.1 (2-4) % Baso % (Auto) 0.5 (0-2) % Neut # (Auto) 3600 (7775-7586) /uL Lymph # (Auto) 3000 (9547-0705) /uL Cole # (Auto) 400 (0-900) /uL Eos # (Auto) 200 (0-450) /uL Baso # (Auto) 0 (0-100) /uL PT 21.3 H (9.4-12.5) SECONDS INR 1.8 H (0.9-1.3) APTT 58 H (25.1-36.5) SECONDS Sodium 141 (137-145) mmol/L Potassium 3.5 (3.4-5.1) mmol/L Chloride 103 (98-107) mmol/L Carbon Dioxide 27 (22-32) mmol/L BUN 25 H (7-17) mg/dL Creatinine 0.55 (0.52-1.04) mg/dL Estimated GFR > 60 (>60) mL/min BUN/Creatinine Ratio 45.5 H (6-22) Glucose 149 H (80-110) mg/dL Calcium 10.9 H (8.4-10.2) mg/dL Magnesium 1.6 (1.6-2.3) mg/dL Total Bilirubin 0.4 (0.2-1.3) mg/dL AST 25 (14-36) IU/L ALT 23 (<35) IU/L Alkaline Phosphatase 86 (38-126) U/L Total Creatine Kinase 62 (30-135) U/L Troponin I < 0.012 < 0.012 (0.01-0.034) ng/mL NT-Pro-B Natriuret Pep 622 H (<125) pg/mL Total Protein 9.4 H (6.3-8.2) g/dL Albumin 5.1 H (3.5-5.0) g/dL Globulin 4.3 H (1.7-4.1) g/dL Albumin/Globulin Ratio 1.2 (1.0-2.8) Lipase 215 (23-300) U/L Urine Dip Bedside Urine Glucose Negative Bedside Urine Bilirubin - Negative Bedside Urine Ketone - Negative Urine Specific Reading 1.005 Bedside Urine Occult Blood +/- Bedside Urine pH 6.5 Bedside Urine Protein - Negative Bedside Urine Urobilinogen - Negative Bedside Urine Nitrite - Negative Bedside Urine Leukocytes +/- 15 Esterase ECG Data Attestation: I personally reviewed and interpreted this ECG as follows: Interpretation: Atrial fibrillation with rapid response rate 167, no obvious ST segment elevation, some downward sloping ST segment depression lateral leads. QRS 78. QTC 477. MDM Narrative Medical decision making narrative: 68-year-old female with recent diagnosis of atrial fibrillation earlier this month, on metoprolol and Xarelto, recent reduction in metoprolol dose outpatient, complains of palpitations and fast heart rate sensation today, AFib RVR noted on screening EKG. Blood pressure okay. IV diltiazem bolus then drip. Stable, on Xarelto only for 2 weeks so far, hold cardioversion due to inadequate duration oral anticoagulation, increased risk stroke, patient agrees. Heart rate improved 120s, but still elevated on diltiazem drip. Initial troponin negative, repeat troponin pending Initial low BP after Dilt bolus drip held , but then had incrased rate, DIlt infusion started, being titrated, BP adequate. Afib VR 120s lower so far. Repeat troponin negative/unmeasurable 0010, case discussed with cardiology Dr. Proctor, no echo done yet, unclear reason why the metoprolol cause the bradycardia, if this was done by phone, unclear if metoprolol should be started or if Cardizem should be started, would be helpful to reach the provider made that decision, apparently this was the primary care provider from the patient. For now he advises admission on telemetry, rate control with IV diltiazem for now, obtain echocardiogram. Then query primary care provider about reason for metoprolol dose reduction, if this was done by phone, if there is some documentation of any specific type of bradycardia. Patient amenable to admission with above plan. We will consult hospitalist 0030, case discussed with hospitalist Dr. Raman, accepts patient for admission to ICU on diltiazem drip Critical Care Time Critical Care Time Critical Care Time: Yes Total Critical Care Time: 35 Attestation: The high probability of a clinically significant, sudden or life threatening deterioration of the [cardiopulmonary] system(s) required my full and direct attention, intervention and personal management. IV constant infusion medication to control the heart rate, with careful measurement of blood pressure, not controlled adequately, required admission, coordination of care with hospitalist and foundation maker. The aggregate critical care time was [35] minutes. This time is in addition to time spent performing reported procedures but includes the following: [x] Data Review and interpretation [x] Patient assessment and monitoring of vital signs [x] Documentation [x] Medication orders and management Discharge Plan Departure Patient Disposition: Admitted As Inpatient Clinical Impression: Atrial fibrillation with rapid ventricular response, Heart palpitations Admit Date/Time: 12/20/23 00:28 Admit Provider: Earnest Raman
[2023-12-19] MEDS: dilTIAZem 125 MG in SODIUM CHLORIDE 0.9% 100 ML IV (22:31)
[2023-12-19] MEDS: dilTIAZem 25 MG/5 ML SDV 20 MG IV (22:31)
--- NOTE | 2023-12-19 23:00 | PC.NURSE ---
Pt awake and alert sitting in ED stretcher at this time. No adverse reactions to administered medications. No distress noted at this time. Pt remains connected to cardiac, resp, blood pressure, and pulse ox monitors with alarms on and audible. Call light within reach. No complaints or concerns stated from patient at this time. states he will wait in the car for the time being.
--- NOTE | 2023-12-19 23:10 | PC.NURSE ---
Pt ambulatory to restroom without difficulty or assistance, one person standby.
[2023-12-20] VITALS (42 sets, daily range): BP systolic 78–129; BP diastolic 50–92; PULSE 70–139; RESP 7–31; TEMP 36.5; O2SAT 93–97; BMI 27.0
[2023-12-20 00:12] LABS: Troponin I < 0.012 ng/mL (0.01-0.034)
[2023-12-20 03:37] LABS: MRSA (Nasal) PCR NOT DETECTED (Not Detect)
[2023-12-20 05:47] LABS: Add Manual Diff / Slide Review NO; Basophils Absolute Auto 0 /uL (0-100); Basophils Percent Auto 0.5 % (0-2); Eosinophils Absolute Auto 100 /uL (0-450); Eosinophils Percent Auto 2.3 % (2-4); Hemoglobin 12.7 g/dL (12.0-16.0); Lymphocytes Absolute Auto 2500 /uL (1100-4500); Lymphocytes Percent Auto 38.6 % (25-40); Mean Corpuscular HGB Conc 34.4 % (30-36); Mean Corpuscular Hemoglobin 29.6 PG (26-34); Mean Corpuscular Volume 86.2 fL (80-100); Monocytes Absolute Auto 500 /uL (0-900); Monocytes Percent Auto 7.4 % (3-14); Neutrophils Absolute Auto 3300 /uL (1500-7000); Neutrophils Percent Auto 51.2 % (50-75); Platelet Count 220 X10^3/uL (150-400); Red Cell Distribution Width 13.3 % (11.6-14.8); White Blood Cell Count 6.4 X10^3/uL (4.5-11.0)
[2023-12-20 05:56] LABS: Alanine Aminotransferase 18 IU/L (<35); Albumin 4.4 g/dL (3.5-5.0); Albumin Globulin Ratio 1.5 (1.0-2.8); Alkaline Phosphatase 59 U/L (38-126); Aspartate Aminotransferase 20 IU/L (14-36); BUN Creatinine Ratio 46.9 (6-22); Bilirubin Total 0.4 mg/dL (0.2-1.3); Blood Urea Nitrogen 23 mg/dL (7-17); Calcium 10.2 mg/dL (8.4-10.2); Carbon Dioxide 25 mmol/L (22-32); Chloride 109 mmol/L (98-107); Estimated Glomerular Filt Rate > 60 mL/min (>60); Glucose 118 mg/dL (80-110); HEMOLYSIS < 15 (0-50); Potassium 3.9 mmol/L (3.4-5.1); Sodium 141 mmol/L (137-145); Total Protein 7.4 g/dL (6.3-8.2)
--- NOTE | 2023-12-20 06:34 | PM.HP.1 ---
History of Present Illness History of Present Illness Chief complaint: afib trouble breathing Narrative: 68-year-old female with past medical history of dislipidemia hypertension, diabetes and hypothyroidism presents with palpitation. Of note, the patient recently was diagnosed with atrial fibrillation on December 06 2023. The patient was incidentally found to have atrial fibrillation when she was evaluated pre-operative for elective cholecystectomy. The patient was started on metoprolol and Xarelto for chronic anticoagulation. However for unclear reason the patient recently had metoprolol dose decreased from 50 mg to 25 mg once daily. This afternoon, the patient started to have a sensation of palpitation. The patient however denies any chest pain, shortness of breath, fever, chills, coughing, nausea, vomiting or diarrhea . In our emergency room, the patient was found to be in atrial fibrillation with RVR. The patient was immediately started on Diltiazem drip. Due to recent initiation of Xelralto no cardioversion was possible. Laboratory was relatively benign except for INR being 1.8 and calcium slightly high at 10.9. BNP was 622. Chest x-ray shows no acute finding. Cardiology was called and recommended admission for rate control and echocardiogram in the morning.? [facility] Medical History (Updated 12/20/23 @ 00:24 by Boo Hernandez MD) Dyslipidemia Osteoporosis Colon cancer screening declined (11/2019) Allergies Knee pain Intrauterine pessary (~2018) Vitamin D deficiency (07/2019) Screening for malignant neoplasm of colon (02/2021) Type 2 diabetes mellitus (07/2019) Essential hypertension (1989) Acquired hypothyroidism Surgical History (Updated 12/07/23 @ 10:45 by Ghada Galdamez RN) H/O: hysterectomy Anesthesia Status post bunionectomy Status post breast biopsy Status post endometrial ablation Family History Father Diabetes mellitus Heart disease Pancreatitis Heart attack Hyperlipidemia Hypertension Grandfather Heart disease Cancer Grandmother Heart disease Mother Heart disease Hypertension Hyperlipidemia Grandmother Heart disease Hypertension Sister Age: 63 Hypertension Brother Heart disease Brother Heart disease Brother Heart disease Social History household members: spouse Smoking Status: Former smoker alcohol intake: never eating out: 1-3 times/week Type(s) of exercise: walking Meds Home Medications and Allergies Home Medications Medication Instructions Recorded Confirmed Type ascorbate calcium (vitamin C) 500 500 mg PO DAILY 03/21/21 12/10/23 History mg tablet cholecalciferol (vitamin D3) 50 5,000 unit PO DAILY 03/21/21 12/10/23 History mcg (2,000 unit) capsule cyanocobalamin (vitamin B-12) PO DAILY 01/28/22 12/10/23 History [Vitamin B-12] zinc citrate PO DAILY 01/28/22 12/10/23 History clobetasol 0.05 % topical ointment 1 applic topical .COMPLEX #30 grams 12/03/22 12/10/23 Rx loratadine 10 mg tablet (Allergy 10 mg PO DAILY 03/20/23 12/20/23 History Relief (loratadine)) acetaminophen 325 mg tablet 650 mg PO Q4-6H PRN pain 04/30/23 12/20/23 History fenofibrate 160 mg tablet 160 mg PO DAILY #90 tabs 06/24/23 12/20/23 Rx estradiol 0.01% (0.1 mg/gram) 0.5 g vaginal QWEEK #42.5 grams 07/16/23 12/10/23 Rx vaginal cream (Estrace) calcium 600 mg capsule mg PO 09/08/23 12/10/23 History levothyroxine 75 mcg tablet 75 mcg PO DAILY #90 tabs 09/08/23 12/20/23 Rx metformin 500 mg tablet See Rx Instructions PO BID #240 09/08/23 12/10/23 Rx tabs lisinopril 20 mg tablet 20 mg PO DAILY #30 tabs 12/10/23 12/20/23 Rx rivaroxaban 20 mg tablet (Xarelto) 20 mg PO DAILY 12/10/23 12/10/23 History metoprolol succinate 50 mg capsule 25 mg (1/2 x 50 mg) PO DAILY 1 12/14/23 Rx sprinkle, ext. release 24 hr month #30 ea metformin 500 mg tablet 500 mg PO BID 12/20/23 12/20/23 History metoprolol succinate 50 mg 25 mg PO DAILY 12/20/23 12/20/23 History tablet,extended release 24 hr rivaroxaban 20 mg tablet (Xarelto) 20 mg PO DAILY 12/20/23 12/20/23 History Allergies Allergy/AdvReac Type Severity Reaction Status Date / Time azithromycin Allergy Mild Rash Verified 12/19/23 21:21 Review of Systems Review of Systems ROS: Yes All systems reviewed with the patient and are negative except as otherwise documented Exam Vital Signs (past 8 hours): - 12/19/23 22:39 12/19/23 22:39 12/19/23 23:00 Pulse Rate 121 H 127 H Respiratory Rate 12 14 Blood Pressure 125/84 Pulse Oximetry 96 92 Oxygen Delivery Method Room Air Oxygen Flow Rate 12/19/23 23:02 12/19/23 23:02 12/19/23 23:30 Pulse Rate 125 H 117 H Respiratory Rate 13 12 Blood Pressure 128/75 Pulse Oximetry 96 95 Oxygen Delivery Method Oxygen Flow Rate 12/19/23 23:33 12/19/23 23:33 12/20/23 00:00 Pulse Rate 136 H Respiratory Rate 13 Blood Pressure 143/86 H 129/61 Pulse Oximetry 96 Oxygen Delivery Method Oxygen Flow Rate 12/20/23 00:00 12/20/23 00:30 12/20/23 00:30 Pulse Rate 119 H 139 H Respiratory Rate 11 L 14 Blood Pressure 109/76 Pulse Oximetry 94 96 Oxygen Delivery Method Room Air Oxygen Flow Rate 12/20/23 00:31 12/20/23 00:55 12/20/23 00:57 Pulse Rate 134 H Respiratory Rate 21 Blood Pressure 110/71 Pulse Oximetry 95 Oxygen Delivery Method Room Air Oxygen Flow Rate 12/20/23 01:00 12/20/23 02:00 12/20/23 03:00 Pulse Rate 95 H 85 Respiratory Rate 15 9 L Blood Pressure 125/82 123/67 95/79 Pulse Oximetry 94 95 Oxygen Delivery Method Oxygen Flow Rate 12/20/23 04:00 12/20/23 05:00 Pulse Rate 74 74 Respiratory Rate 11 L 11 L Blood Pressure 94/50 L 94/50 L Pulse Oximetry 95 95 Oxygen Delivery Method Oxygen Flow Rate 0 0 Oxygen Delivery Method Room Air Oxygen Flow Rate 0 Narrative Exam Narrative: GENERAL: The patient is not in any acute distressed. Awake and alert. HEENT: Nonicteric sclerae, PERRLA, EOMI. Oropharynx clear. Moist mucous membranes. Conjunctivae appear well perfused. HEART: irreg irreg rhythm and tachycardia without murmurs. No lower extremities edema. LUNGS: Clear to auscultation bilaterally. No wheezing, crackles or rhonchi ABDOMEN: Soft, positive bowel sounds, nontender. SKIN: No rash, no excessive bruising, petechiae, or purpura. NEUROLOGIC: AxO x 3. Cranial nerves II-XII intact without motor/sensory deficit. Objective Labs 12/20/23 05:25 12/20/23 05:25 Labs: Laboratory Results - last 24 hr 12/19/23 12/19/23 12/20/23 21:35 23:35 02:00 WBC 7.2 RBC 4.74 Hgb 13.9 Hct 41.0 MCV 86.4 MCH 29.4 MCHC 34.0 RDW 13.5 Plt Count 235 Neut % (Auto) 50.0 Lymph % (Auto) 41.6 H Gentry % (Auto) 5.8 Eos % (Auto) 2.1 Baso % (Auto) 0.5 Neut # (Auto) 3600 Lymph # (Auto) 3000 Gentry # (Auto) 400 Eos # (Auto) 200 Baso # (Auto) 0 PT 21.3 H INR 1.8 H APTT 58 H Sodium 141 Potassium 3.5 Chloride 103 Carbon Dioxide 27 BUN 25 H Creatinine 0.55 Estimated GFR > 60 BUN/Creatinine Ratio 45.5 H Glucose 149 H Calcium 10.9 H Magnesium 1.6 Total Bilirubin 0.4 AST 25 ALT 23 Alkaline Phosphatase 86 Total Creatine Kinase 62 Troponin I < 0.012 < 0.012 NT-Pro-B Natriuret Pep 622 H Total Protein 9.4 H Albumin 5.1 H Globulin 4.3 H Albumin/Globulin Ratio 1.2 Lipase 215 Nasal Screen MRSA (PCR) Not detected 12/20/23 05:25 WBC 6.4 RBC 4.30 Hgb 12.7 Hct 37.0 MCV 86.2 MCH 29.6 MCHC 34.4 RDW 13.3 Plt Count 220 Neut % (Auto) 51.2 Lymph % (Auto) 38.6 Gentry % (Auto) 7.4 Eos % (Auto) 2.3 Baso % (Auto) 0.5 Neut # (Auto) 3300 Lymph # (Auto) 2500 Gentry # (Auto) 500 Eos # (Auto) 100 Baso # (Auto) 0 PT INR APTT Sodium 141 Potassium 3.9 Chloride 109 H Carbon Dioxide 25 BUN 23 H Creatinine 0.49 L Estimated GFR > 60 BUN/Creatinine Ratio 46.9 H Glucose 118 H Calcium 10.2 Magnesium Total Bilirubin 0.4 AST 20 ALT 18 Alkaline Phosphatase 59 Total Creatine Kinase Troponin I NT-Pro-B Natriuret Pep Total Protein 7.4 Albumin 4.4 Globulin 3.0 Albumin/Globulin Ratio 1.5 Lipase Nasal Screen MRSA (PCR) Assessment & Plan Assessment & Plan narrative: Atrial fibrillation with RVR. Admit the patient to ICU. Continue Diltiazem drip. Hold oral metoprolol for now with PRN IV metoprolol. Echocardiogram in the morning. If no recent TSH check recently please consider obtaining a TSH level in AM Hypertension. Monitor blood pressure and resume home blood pressure medication accordingly . Hypothyroidism. Resume home synthroid? Non-insulin independent diabetes. Hold metformin for now. Monitor glucose and SQ insulin as needed? DVT prophylaxis Xarelto. Code status full code . Disposition likely home in 2 days. Time-Based Coding :: [TOTAL MINUTES] spent with patient and on the chart (including review of chart, obtaining history, exam, reviewing outside data, placing orders, documenting exam and treatment plan, and counseling patient) on [DATE].
--- NOTE | 2023-12-20 06:45 | PC.NURSE ---
pt arrived from ER via stretcher, ambulated to bed with standby assist, denies pain, A&Ox4, c/o of fatigue, VSS, afebrile, afib 70-110s, diltiazem gtt titrated per protocol, lungs clear, O2 sats >92% on RA, abd soft with BS, voiding QS in bathroom, using call lewis to get up with standby assist, continue to monitor
[2023-12-20] MEDS: dilTIAZem 125 MG in SODIUM CHLORIDE 0.9% 100 ML IV (08:21)
--- NOTE | 2023-12-20 08:28 | DI.ECHO.S_ITS ---
[facility] : : [address] : : [place] : : [id number] : : Phone: [phone] Echocardiogram Report + + :Name: LIDA REYES Study Date: 12/20/2023 Height: 65.5 in: :[facility] ReadingLocation: Weight: 171 lb : : Gender: Female BSA: 1.9 m2 : :: 1955 Age: 68 yrs BP: 114/66 mmHg: :Reason For Study: ATRIAL FIBRILLATION : :Ordering Physician: ADAN, : :MAJO DESIR Performed By: Jory Lagunas : :Referring: MAJO ARELLANO : + + Interpretation Summary 1) Normal left ventricular thickness, size, wall motion, and systolic function (EF 55-60%).. 2) Normal right ventricular size and function. 3) The left atrium is severely dilated. 4) There is mild to moderate aortic regurgitation. 5 The ascending aorta is mild-moderately enlarged. 6) Compared to the Echo done 01/23/2016, no significant change. Procedure: A two-dimensional transthoracic echocardiogram with color flow and Doppler was performed. The study quality was technically adequate. Comparison is made with the echocardiogram of 01/23/2016. The patient was in atrial fibrillation with heart rates between 82-119 bpm during the exam. Left Ventricle: The left ventricle is normal in size and wall thickness. The ejection fraction is estimated to be 55-60%. Left ventricular systolic function appears normal without focal wall motion abnormalities. Diastolic function could not be accurately assessed due to atrial fibrillation. Right Ventricle: Borderline right ventricular enlargement. The right ventricular systolic function is normal. Atria: The left atrium is severely dilated. The right atrium is mildly dilated. There is no Doppler evidence for an interatrial shunt. Mitral Valve: There is mild mitral annular calcification. The mitral valve leaflets are slightly calcified. There is mild mitral regurgitation. Aortic Valve: The aortic valve is trileaflet. The aortic valve opens well. There is no aortic valve stenosis. There is mild to moderate aortic regurgitation. Tricuspid Valve: The tricuspid valve is normal in structure and function. There is mild tricuspid regurgitation. Multiple regurgitant jets present. The right ventricular systolic pressure is estimated to be at least 26 mmHg based on an estimated right atrial pressure of 8 mm Hg. Pulmonic Valve: The pulmonic valve is not well seen, but is grossly normal. There is no pulmonic valvular regurgitation. Great Vessels: The aortic root is normal size. The ascending aorta is mild- moderately enlarged. The IVC is dilated (diameter is greater than 2.1 cm) yet it collapses greater than 50% with a sniff. This suggests a right atrial pressure of 8 mm Hg. Pericardium/ Pleura There is no pericardial effusion. There is no pleural effusion. MMode/2D Measurements & Calculations LVIDd: 4.7 cm LVOT diam: 2.2 cm LVIDs: 3.2 cm Ao root diam: 3.5 cm FS: 31.3 % asc Aorta Diam: 4.1 cm EPSS: 0.41 cm Ao Arch Diam (Prox Trans): 2.9 cm IVSd: 0.64 cm LVPWd: 0.97 cm LV humphrey. diameter/BSA (cm/m^2): 2.5 LV sys. diameter/BSA (cm/m^2): 1.7 LA A2 area: 30.4 cm2 RA long axis: 6.7 cm LA A4 area: 28.1 cm2 RA area: 23.9 cm2 LA length (vol): 6.6 cm RA vol: 73.0 ml LA vol: 109.6 ml RA : 39.2 ml/m2 LA vol index: 58.8 ml/m2 IVC diam: 2.5 cm RVD1 (basal): 4.1 cm RVD2 (mid): 3.5 cm TAPSE: 1.8 cm Doppler Measurements & Calculations Ao V2 max: 146.2 cm/sec LVOT Max Martin: 93.6 cm/sec Ao V2 mean: 96.3 cm/sec LV V1 max P.5 mmHg Ao max P.5 mmHg LV V1 VTI: 17.0 cm Ao mean P.3 mmHg HAYLEY(I,D): 2.5 cm2 Ao V2 VTI: 25.8 cm HAYLEY(V,D): 2.4 cm2 sev ratio: 0.66 HAYLEY indexed to BSA (cm^2/m^2): 1.3 AI P1/2t: 834.6 msec AI dec slope: 157.2 cm/sec2 MV E max martin: 97.1 cm/sec TR max martin: 210.4 cm/sec MV A max martin: 0.99 cm/sec TR max P.7 mmHg MV E/A: 97.7 PA V2 max: 98.8 cm/sec Med Peak E' Martin: 8.0 cm/sec PA V2 mean: 65.4 cm/sec E/E' med: 12.1 PA mean P.0 mmHg Lat Peak E' Martin: 10.9 cm/sec PA pr(Accel): 44.3 mmHg E/E' lat: 8.9 E/e' average: 10.5 MV dec time: 0.22 sec SV(MARIANAOT): 64.4 ml Reading Physician:02:10 PM
[2023-12-20] MEDS: METOPROLOL ER 25 MG TABLET PO ×2 (08:56→21:23)
[2023-12-20] MEDS: FENOFIBRATE, MICRONIZED 67 MG CAPSULE 201 MG PO (08:57)
[2023-12-20] MEDS: INSULIN LISPRO 100 UNIT/ML 3ML VIAL SUBCUT (12:21)
[2023-12-20 13:48] LABS: Appearance Urine UA CLOUDY; Bilirubin Urine UA NEGATIVE (NEGATIVE); Color Urine UA YELLOW; Glucose Urine UA NEGATIVE (Negative); Ketones Urine UA NEGATIVE (NEGATIVE); Leukocyte Esterase Urine UA 2+ (NEGATIVE); Nitrite Urine UA NEGATIVE (Negative); Occult Blood Urine UA TRACE-INTACT (Negative); Protein Urine UA NEGATIVE (Negative)
[2023-12-20 14:00] LABS: Amorphous Sediment Urine 1+; Bacteria Urine Many (>30); Culture Indicated Urine Specimen Cultured; RBC Urine None Seen (0-5/HPF); Squamous Epithelial Cell Urine 0-1 /HPF (0-5/HPF); Urine Volume 10mL (spun); WBC Urine 10-30/HPF (0-5/HPF)
--- NOTE | 2023-12-20 14:25 | CM.DANOTE ---
Initial DCP Assessment Note Pt is a 68 yo female, resident of [place], arrives with afib w/RVR, admitted for further work up and monitoring. PCP: Mando Puente Payer: FELICIA/NEIL Reviewed chart, pt discussed in multidisciplinary rounds this morning. Patient lives independently with spouse, no needs anticipated from this CM team upon patient's eventual discharge. No barriers identified at this time to patient's safe discharge home w/family ; close outpatient f/u recommended. CM team will plan to follow clinical course closely in case any DC needs or concerns arise. MARIALUISA Walker Discharge Planning/Care Management CM Discharge Assessment Start: 12/20/23 14:22 Freq: Status: Active Protocol: Document 12/20/23 14:22 JOSE (Rec: 12/20/23 14:24 JOSE [id number]) Discharge Planning Assessment Assigned Dimensional Inspector MARIALUISA Vences DPOA/Assigned Designee Name Braeden Perla, spouse Contact Information [phone] Advance Directives? No History Provided By Medical Record Prior Living Arrangements House Household Members spouse Type of transporation used prior to Drives own vehicle admit Independent with ADL's Yes Is patient alert and oriented? Yes Barriers to Discharge No Discharge Plan Home Transportation Arrangement Family Referrals Initiated None needed
--- NOTE | 2023-12-20 15:29 | PM.HP.1 ---
History of Present Illness History of Present Illness Date Patient Seen: 12/20/23 Time Patient Seen: 15:30 Chief complaint: afib trouble breathing Narrative: Per overnight provider, 68-year-old female with past medical history of dislipidemia hypertension, diabetes and hypothyroidism presents with palpitation. Of note, the patient recently was diagnosed with atrial fibrillation on December 06 2023. The patient was incidentally found to have atrial fibrillation when she was evaluated pre-operative for elective cholecystectomy. The patient was started on metoprolol and Xarelto for chronic anticoagulation. However for unclear reason the patient recently had metoprolol dose decreased from 50 mg to 25 mg once daily. This afternoon, the patient started to have a sensation of palpitation. The patient however denies any chest pain, shortness of breath, fever, chills, coughing, nausea, vomiting or diarrhea . In our emergency room, the patient was found to be in atrial fibrillation with RVR. The patient was immediately started on Diltiazem drip. Due to recent initiation of Xelralto no cardioversion was possible. Laboratory was relatively benign except for INR being 1.8 and calcium slightly high at 10.9. BNP was 622. Chest x-ray shows no acute finding. Cardiology was called and recommended admission for rate control and echocardiogram in the morning.? Updates: Patient remains on diltiazem, she has mild palpitations but no chest pain or shortness of breath. TTE done but pending. She was supposed to follow up with lining brusher next week. [facility] Medical History Dyslipidemia Osteoporosis Colon cancer screening declined (11/2019) Allergies Knee pain Intrauterine pessary (~2018) Vitamin D deficiency (07/2019) Screening for malignant neoplasm of colon (02/2021) Type 2 diabetes mellitus (07/2019) Essential hypertension (1989) Acquired hypothyroidism Surgical History H/O: hysterectomy Anesthesia Status post bunionectomy Status post breast biopsy Status post endometrial ablation Family History Father Diabetes mellitus Heart disease Pancreatitis Heart attack Hyperlipidemia Hypertension Grandfather Heart disease Cancer Grandmother Heart disease Mother Heart disease Hypertension Hyperlipidemia Grandmother Heart disease Hypertension Sister Age: 63 Hypertension Brother Heart disease Brother Heart disease Brother Heart disease Social History household members: spouse Smoking Status: Former smoker alcohol intake: never eating out: 1-3 times/week Type(s) of exercise: walking Meds Home Medications and Allergies Home Medications Medication Instructions Recorded Confirmed Type loratadine 10 mg tablet (Allergy 10 mg PO DAILY 03/20/23 12/20/23 History Relief (loratadine)) acetaminophen 325 mg tablet 650 mg PO Q4-6H PRN pain 04/30/23 12/20/23 History fenofibrate 160 mg tablet 160 mg PO DAILY #90 tabs 06/24/23 12/20/23 Rx levothyroxine 75 mcg tablet 75 mcg PO DAILY #90 tabs 09/08/23 12/20/23 Rx lisinopril 20 mg tablet 20 mg PO DAILY #30 tabs 12/10/23 12/20/23 Rx metformin 500 mg tablet 500 mg PO BID 12/20/23 12/20/23 History metoprolol succinate 50 mg 25 mg PO DAILY 12/20/23 12/20/23 History tablet,extended release 24 hr rivaroxaban 20 mg tablet (Xarelto) 20 mg PO DAILY 12/20/23 12/20/23 History Allergies Allergy/AdvReac Type Severity Reaction Status Date / Time azithromycin Allergy Mild Rash Verified 12/19/23 21:21 Review of Systems Review of Systems Narrative: All other systems reviewed with the patient and are negative unless otherwise stated. Exam Vital Signs (past 8 hours): - 12/20/23 07:53 12/20/23 08:56 12/20/23 09:25 Pulse Rate 107 H 83 89 Respiratory Rate 18 Blood Pressure 91/58 L 114/66 113/59 L Pulse Oximetry 96 Oxygen Flow Rate 0 12/20/23 09:32 12/20/23 10:00 12/20/23 10:00 Pulse Rate 80 84 Respiratory Rate 14 18 Blood Pressure 112/67 Pulse Oximetry 94 95 Oxygen Flow Rate 12/20/23 10:30 12/20/23 11:00 12/20/23 11:30 Pulse Rate 95 H 91 H 107 H Respiratory Rate 31 H 17 23 Blood Pressure Pulse Oximetry Oxygen Flow Rate 12/20/23 12:00 12/20/23 12:08 12/20/23 12:08 Pulse Rate 116 H 111 H Respiratory Rate 21 23 Blood Pressure 118/92 H Pulse Oximetry Oxygen Flow Rate 12/20/23 12:30 12/20/23 13:00 12/20/23 13:00 Pulse Rate 117 H 83 Respiratory Rate 24 18 Blood Pressure 101/66 Pulse Oximetry Oxygen Flow Rate 12/20/23 13:30 12/20/23 14:00 12/20/23 14:00 Pulse Rate 87 91 H Respiratory Rate 18 20 Blood Pressure 100/59 L Pulse Oximetry Oxygen Flow Rate Oxygen Delivery Method Room Air Oxygen Flow Rate 0 Narrative Exam Narrative: General:? Patient is well developed and well nourished, in no distress at this time. HEENT:? Normocephalic, atraumatic, extraocular muscles intact, oral pharynx is clear and mucous membranes are moist. Neck: supple and symmetric, trachea is midline, no cervical adenopathy. Negative for JVD Chest:? Normal AP diameter and contour without kyphoscoliosis, no tachypnea, equal chest rise bilaterally. Lungs:? CTA b/l no wheezing rhonchi or rales. Cardio:? Tachycardic, irregularly irregular rhythm, with no murmurs, rubs, or gallops. Abdomen: S NT ND. Musculoskeletal:? Muscle strength and tone are equal within normal limits, no deformity. Extremities: No edema or joint effusions. No cyanosis or clubbing. Skin:? Pale,? Warm to touch,dry and intact without rashes, ulcerations or petechiae.? Neuro:? Alert and orientated x3,? sensation to touch intact in all extremities, no gross deficits noted of cranial nerves. Psych:? Patient has a well-kept appearance, appropriate affect, mental status attitude thought context and judgment are appropriate for age. Objective ECG Impression: Atrial fibrillation with rapid ventricular response Labs 12/20/23 05:25 12/20/23 05:25 Labs: Laboratory Results - last 24 hr 12/19/23 12/19/23 12/20/23 21:35 23:35 02:00 WBC 7.2 RBC 4.74 Hgb 13.9 Hct 41.0 MCV 86.4 MCH 29.4 MCHC 34.0 RDW 13.5 Plt Count 235 Neut % (Auto) 50.0 Lymph % (Auto) 41.6 H [place] % (Auto) 5.8 Eos % (Auto) 2.1 Baso % (Auto) 0.5 Neut # (Auto) 3600 Lymph # (Auto) 3000 Quay # (Auto) 400 Eos # (Auto) 200 Baso # (Auto) 0 PT 21.3 H INR 1.8 H APTT 58 H Sodium 141 Potassium 3.5 Chloride 103 Carbon Dioxide 27 BUN 25 H Creatinine 0.55 Estimated GFR > 60 BUN/Creatinine Ratio 45.5 H Glucose 149 H Calcium 10.9 H Magnesium 1.6 Total Bilirubin 0.4 AST 25 ALT 23 Alkaline Phosphatase 86 Total Creatine Kinase 62 Troponin I < 0.012 < 0.012 NT-Pro-B Natriuret Pep 622 H Total Protein 9.4 H Albumin 5.1 H Globulin 4.3 H Albumin/Globulin Ratio 1.2 Lipase 215 Urine Color Urine Appearance Urine pH Ur Specific [place] Urine Protein Urine Glucose (UA) Urine Ketones Urine Occult Blood Urine Nitrate Urine Bilirubin Urine Urobilinogen Ur Leukocyte Esterase Urine RBC Urine WBC Ur Squamous Epith Cells Amorphous Sediment Urine Bacteria Ur Culture Indicated? Vol Urine Centrifuged Nasal Screen MRSA (PCR) Not detected 12/20/23 12/20/23 05:25 12:30 WBC 6.4 RBC 4.30 Hgb 12.7 Hct 37.0 MCV 86.2 MCH 29.6 MCHC 34.4 RDW 13.3 Plt Count 220 Neut % (Auto) 51.2 Lymph % (Auto) 38.6 Quay % (Auto) 7.4 Eos % (Auto) 2.3 Baso % (Auto) 0.5 Neut # (Auto) 3300 Lymph # (Auto) 2500 Quay # (Auto) 500 Eos # (Auto) 100 Baso # (Auto) 0 PT INR APTT Sodium 141 Potassium 3.9 Chloride 109 H Carbon Dioxide 25 BUN 23 H Creatinine 0.49 L Estimated GFR > 60 BUN/Creatinine Ratio 46.9 H Glucose 118 H Calcium 10.2 Magnesium Total Bilirubin 0.4 AST 20 ALT 18 Alkaline Phosphatase 59 Total Creatine Kinase Troponin I NT-Pro-B Natriuret Pep Total Protein 7.4 Albumin 4.4 Globulin 3.0 Albumin/Globulin Ratio 1.5 Lipase Urine Color Yellow Urine Appearance Cloudy Urine pH 7.0 Ur Specific [place] 1.010 Urine Protein Negative Urine Glucose (UA) Negative Urine Ketones Negative Urine Occult Blood Trace-intact Urine Nitrate Negative Urine Bilirubin Negative Urine Urobilinogen 1.0 Ur Leukocyte Esterase 2+ H Urine RBC None seen Urine WBC 10-30/hpf H Ur Squamous Epith Cells 0-1 /hpf Amorphous Sediment 1+ Urine Bacteria Many (>30) H Ur Culture Indicated? Specimen cultured Vol Urine Centrifuged 10ml (spun) Nasal Screen MRSA (PCR) Assessment & Plan Assessment & Plan narrative: Atrial fibrillation with RVR. Hypertension. Hypothyroidism. ? Non-insulin independent diabetes. Asymptomatic bacteuria Hypopagnesemia Plan: - continue to wean from dilt infusion - follow up echo for further medication titration (use of PO dilt, etc). If heart failure present discuss with cardiology for transfer for JEET/cardioversion - continue xarelto - increase home metoprolol to 25 mg BID, hold home losartan for now to leave room for rate control. Consider increased dose. - urinalysis positive, but no recent symptoms. Caal sensitive E. coli on prior cultures, likely similar results this admission, likely colonization. - K 3.9, Mg 1.6, will replete with 2g IV mag. Code: Full, surrogate is patient's spouse DVT: Lovenox daily I have utilized all available immediate resources to obtain, update, or review the patient's current medications. Dispo: patient admitted under inpatient status. Unclear if will be able to discharge home or possible SNF, will have PT/OT evaluations. Additional history obtained via discussions with the overnight provider, bedside RN. These discussions contributed to the creation of the above assessment and plan. I have reviewed patient's presenting documentation, labs, and imaging personally. Time-Based Coding :: [TOTAL MINUTES] spent with patient and on the chart (including review of chart, obtaining history, exam, reviewing outside data, placing orders, documenting exam and treatment plan, and counseling patient) on [DATE].
[2023-12-20] MEDS: MAGNESIUM SULFATE 2 GM/50 ML PIGGYBACK IV (16:47)
--- NOTE | 2023-12-20 19:42 | PC.NURSE ---
pt has had an uneventful shift; her diltiazem has been at 5mg/hr all shift; her HR is in the 70's-80s at rest and up to the 120s w/ movement; no c/o cp or sob; metoprolol has been increased to twice daily with intent to turn off diltiazem drip and possible discharge tomorrow
[2023-12-20] MEDS: RIVAROXABAN 10 MG TABLET 20 MG PO (21:23)
[2023-12-21] VITALS (32 sets, daily range): BP systolic 50–156; BP diastolic 34–95; PULSE 68–134; RESP 11–27; TEMP 35.8–36.8; O2SAT 92–98
[2023-12-21] MEDS: LEVOTHYROXINE 75 MCG TABLET PO (07:02)
--- NOTE | 2023-12-21 07:34 | PC.NURSE ---
1930 Report received from main GODOY. Patient AO x's 3. Able to BERRY. Denies pain, numbness and tingling. Call light within reach and bed in lowest position. Family at the bedside. 0000 Focused assessment completed. No changes from baseline status. No distress noted. 0400 Focused assessment completed. No changes from baseline status. No distress noted. [id number] Report given to main GODOY. Plan of care discussed.
[2023-12-21] MEDS: METOPROLOL ER 25 MG TABLET PO ×2 (08:40→20:36)
[2023-12-21] MEDS: FENOFIBRATE, MICRONIZED 67 MG CAPSULE 201 MG PO (08:40)
[2023-12-21] MEDS: dilTIAZem SR 60 MG PO ×3 (10:13→20:36)
--- NOTE | 2023-12-21 10:42 | PM.PN.1 ---
Subjective Subjective Interval history: No chest pain or palpitations, tachycardic off of dilt infusion this morning again with rates 110s-120s. EF normal on echo, no significant valulvar etiology. Started oral dilt with improvement in BP today. continue to work on rate control. Exam Vital Signs (past 8 hours): - 12/21/23 03:00 12/21/23 03:00 12/21/23 04:00 Temperature Pulse Rate 69 Respiratory Rate 15 Blood Pressure 99/62 82/59 L Pulse Oximetry 95 Oxygen Delivery Method Oxygen Flow Rate 0 12/21/23 04:00 12/21/23 04:00 12/21/23 04:01 Temperature 96.4 F L Pulse Rate 68 Respiratory Rate 13 Blood Pressure 91/67 Pulse Oximetry 95 Oxygen Delivery Method Room Air Oxygen Flow Rate 0 12/21/23 04:01 12/21/23 05:00 12/21/23 05:00 Temperature Pulse Rate 76 68 Respiratory Rate 16 14 Blood Pressure 101/68 Pulse Oximetry 97 94 Oxygen Delivery Method Oxygen Flow Rate 0 0 12/21/23 06:00 12/21/23 06:00 12/21/23 07:00 Temperature Pulse Rate 96 H 85 Respiratory Rate 13 11 L Blood Pressure 111/70 Pulse Oximetry 98 97 Oxygen Delivery Method Oxygen Flow Rate 0 12/21/23 07:00 12/21/23 08:00 12/21/23 08:00 Temperature 98 F Pulse Rate 75 Respiratory Rate 14 Blood Pressure 122/75 120/75 Pulse Oximetry 94 Oxygen Delivery Method Oxygen Flow Rate 12/21/23 08:00 Temperature Pulse Rate Respiratory Rate Blood Pressure Pulse Oximetry Oxygen Delivery Method Room Air Oxygen Flow Rate Oxygen Delivery Method Room Air Oxygen Flow Rate 0 Narrative Exam Narrative: General:? Patient is well developed and well nourished, in no distress at this time. Lungs:? CTA b/l no wheezing rhonchi or rales. Cardio:? Tachycardic, irregularly irregular rhythm, with no murmurs, rubs, or gallops. Musculoskeletal:? Muscle strength and tone are equal within normal limits, no deformity. Extremities: No edema or joint effusions. No cyanosis or clubbing. Objective Labs 12/20/23 05:25 12/21/23 11:20 Labs: Laboratory Results - last 24 hr 12/20/23 12:30 Urine Color Yellow Urine Appearance Cloudy Urine pH 7.0 Ur Specific [place] 1.010 Urine Protein Negative Urine Glucose (UA) Negative Urine Ketones Negative Urine Occult Blood Trace-intact Urine Nitrate Negative Urine Bilirubin Negative Urine Urobilinogen 1.0 Ur Leukocyte Esterase 2+ H Urine RBC None seen Urine WBC 10-30/hpf H Ur Squamous Epith Cells 0-1 /hpf Amorphous Sediment 1+ Urine Bacteria Many (>30) H Ur Culture Indicated? Specimen cultured Vol Urine Centrifuged 10ml (spun) PFSH Medical History Dyslipidemia Osteoporosis Colon cancer screening declined (11/2019) Allergies Knee pain Intrauterine pessary (~2018) Vitamin D deficiency (07/2019) Screening for malignant neoplasm of colon (02/2021) Type 2 diabetes mellitus (07/2019) Essential hypertension (1989) Acquired hypothyroidism Surgical History H/O: hysterectomy Anesthesia Status post bunionectomy Status post breast biopsy Status post endometrial ablation Family History Father Diabetes mellitus Heart disease Pancreatitis Heart attack Hyperlipidemia Hypertension Grandfather Heart disease Cancer Grandmother Heart disease Mother Heart disease Hypertension Hyperlipidemia Grandmother Heart disease Hypertension Sister Age: 63 Hypertension Brother Heart disease Brother Heart disease Brother Heart disease Social History household members: spouse Smoking Status: Former smoker alcohol intake: never eating out: 1-3 times/week Type(s) of exercise: walking Assessment & Plan Assessment & Plan narrative: Atrial fibrillation with RVR. Hypertension. Hypothyroidism. ? Non-insulin independent diabetes. Asymptomatic bacteuria Hypomagnesemia Plan: - may need to be put back on diltiazem infusion with difficult to control rates. - TTE with preserved EF, no significant valvular pathologies. - continue xarelto - increased home metoprolol to 25 mg BID, will add diltiazem 60 mg TID today given normal EF - urinalysis positive, but no recent symptoms. Caal sensitive E. coli on prior cultures, likely similar results this admission, likely colonization. - K 3.9, Mg 1.6, will replete with 2g IV mag. Code: Full, surrogate is patient's spouse DVT: Lovenox daily I have utilized all available immediate resources to obtain, update, or review the patient's current medications. Dispo: Inpatient ICU. likely discharge home once rate is controlled. Additional history obtained via discussions with the bedside RN, housing case manager, pharmacist. These discussions contributed to the creation of the above assessment and plan. I have reviewed patient's presenting documentation, labs, and imaging personally. Time-Based Coding :: [TOTAL MINUTES] spent with patient and on the chart (including review of chart, obtaining history, exam, reviewing outside data, placing orders, documenting exam and treatment plan, and counseling patient) on [DATE].
[2023-12-21 11:51] LABS: Blood Urea Nitrogen 17 mg/dL (7-17); Calcium 10.1 mg/dL (8.4-10.2); Carbon Dioxide 24 mmol/L (22-32); Chloride 108 mmol/L (98-107); Estimated Glomerular Filt Rate > 60 mL/min (>60); Glucose 147 mg/dL (80-110); HEMOLYSIS < 15 (0-50); Magnesium 1.9 mg/dL (1.6-2.3); Potassium 3.9 mmol/L (3.4-5.1); Sodium 139 mmol/L (137-145)
[2023-12-21] MEDS: dilTIAZem 125 MG in SODIUM CHLORIDE 0.9% 100 ML IV (13:19)
[2023-12-21] MEDS: INSULIN LISPRO 100 UNIT/ML 3ML VIAL SUBCUT (17:17)
[2023-12-21] MEDS: RIVAROXABAN 10 MG TABLET 20 MG PO (20:36)
[2023-12-22] VITALS (23 sets, daily range): BP systolic 95–149; BP diastolic 58–88; PULSE 67–125; RESP 10–38; TEMP 35.8–36.8; O2SAT 94–98
[2023-12-22] MEDS: LEVOTHYROXINE 75 MCG TABLET PO (05:45)
[2023-12-22 06:00] LABS: BUN Creatinine Ratio 46.7 (6-22); Blood Urea Nitrogen 21 mg/dL (7-17); Carbon Dioxide 26 mmol/L (22-32); Chloride 106 mmol/L (98-107); Estimated Glomerular Filt Rate > 60 mL/min (>60); Glucose 127 mg/dL (80-110); HEMOLYSIS < 15 (0-50); Magnesium 1.7 mg/dL (1.6-2.3); Potassium 3.8 mmol/L (3.4-5.1); Sodium 136 mmol/L (137-145)
[2023-12-22] MEDS: SODIUM CHLORIDE 0.9% FLUSH 10 ML IV ×2 (08:00→21:16)
[2023-12-22] MEDS: METOPROLOL ER 25 MG TABLET PO ×2 (08:08→20:30)
[2023-12-22] MEDS: dilTIAZem SR 60 MG PO (08:08)
[2023-12-22] MEDS: FENOFIBRATE, MICRONIZED 67 MG CAPSULE 201 MG PO (08:09)
[2023-12-22] MEDS: MAGNESIUM CHLORIDE 64 MG TABLET 128 MG PO (10:19)
--- NOTE | 2023-12-22 11:51 | CM.DPNOTE ---
JUAN CARLOSP Cont Reviewed chart. Patient discussed in multidisciplinary rounds. Patient went back on IV diltiazem last night however may transition back to po today and discharge home thereafter. Plan remains discharge home w/family w/close outpatient follow up. CM team following clinical course closely in case any discharge needs or concerns arise. JOSE
--- NOTE | 2023-12-22 14:18 | PM.PN.1 ---
Subjective Subjective Interval history: No chest pain or palpitations, off of dilt but still with intermittent RVR up to 130s, primarily with exertion. EF normal on echo, no significant valulvar etiology. Will increase dilt to 240 mg daily tonight from 60 TID. Continue metoprolol. Exam Vital Signs (past 8 hours): - 12/22/23 07:00 12/22/23 07:00 12/22/23 08:00 Temperature Pulse Rate 69 72 Respiratory Rate 12 13 Blood Pressure 121/76 Pulse Oximetry 95 96 Oxygen Delivery Method 12/22/23 08:00 12/22/23 08:08 12/22/23 09:00 Temperature Pulse Rate 76 81 Respiratory Rate 19 Blood Pressure 111/66 111/66 Pulse Oximetry 98 Oxygen Delivery Method 12/22/23 09:00 12/22/23 09:02 12/22/23 09:02 Temperature Pulse Rate 96 H Respiratory Rate 15 Blood Pressure 126/69 Pulse Oximetry 98 Oxygen Delivery Method Room Air 12/22/23 10:00 12/22/23 10:00 12/22/23 11:00 Temperature 96.8 F L Pulse Rate 86 84 Respiratory Rate 21 19 Blood Pressure Pulse Oximetry 98 95 Oxygen Delivery Method 12/22/23 12:00 12/22/23 12:00 12/22/23 12:01 Temperature 98.3 F Pulse Rate 102 H 113 H Respiratory Rate 21 38 H Blood Pressure Pulse Oximetry 94 95 Oxygen Delivery Method 12/22/23 12:12 12/22/23 13:00 Temperature Pulse Rate Respiratory Rate Blood Pressure 149/77 H Pulse Oximetry Oxygen Delivery Method Room Air Oxygen Delivery Method Room Air Oxygen Flow Rate 0 Narrative Exam Narrative: General:? Patient is well developed and well nourished, in no distress at this time. Lungs:? CTA b/l no wheezing rhonchi or rales. Cardio:? Tachycardic, irregularly irregular rhythm, with no murmurs, rubs, or gallops. Musculoskeletal:? Muscle strength and tone are equal within normal limits, no deformity. Extremities: No edema or joint effusions. No cyanosis or clubbing. Objective Labs 12/20/23 05:25 12/22/23 05:44 Labs: Laboratory Results - last 24 hr 12/22/23 05:44 Sodium 136 L Potassium 3.8 Chloride 106 Carbon Dioxide 26 BUN 21 H Creatinine 0.45 L Estimated GFR > 60 BUN/Creatinine Ratio 46.7 H Glucose 127 H Calcium 10.0 Magnesium 1.7 PFSH Medical History Dyslipidemia Osteoporosis Colon cancer screening declined (11/2019) Allergies Knee pain Intrauterine pessary (~2018) Vitamin D deficiency (07/2019) Screening for malignant neoplasm of colon (02/2021) Type 2 diabetes mellitus (07/2019) Essential hypertension (1989) Acquired hypothyroidism Surgical History H/O: hysterectomy Anesthesia Status post bunionectomy Status post breast biopsy Status post endometrial ablation Family History Father Diabetes mellitus Heart disease Pancreatitis Heart attack Hyperlipidemia Hypertension Grandfather Heart disease Cancer Grandmother Heart disease Mother Heart disease Hypertension Hyperlipidemia Grandmother Heart disease Hypertension Sister Age: 63 Hypertension Brother Heart disease Brother Heart disease Brother Heart disease Social History household members: spouse Smoking Status: Former smoker alcohol intake: never eating out: 1-3 times/week Type(s) of exercise: walking Assessment & Plan Assessment & Plan narrative: Atrial fibrillation with RVR. Hypertension. Hypothyroidism. ? Non-insulin independent diabetes. Asymptomatic bacteuria Hypomagnesemia Plan: - change from 60 mg TID dilt SR to 240 mg CD with dose at 2000 today in hopes of improved rate control. - TTE with preserved EF, no significant valvular pathologies. - continue xarelto - increased home metoprolol to 25 mg BID, dilt as noted above. - urinalysis positive, but no recent symptoms. Caal sensitive E. coli on prior cultures, likely similar results this admission, likely colonization. - K 3.9, Mg 1.6, will replete with 2g IV mag. - has follow up with cardiology later this week scheduled. Code: Full, surrogate is patient's spouse DVT: Lovenox daily I have utilized all available immediate resources to obtain, update, or review the patient's current medications. Dispo: Regular floor okay, likely home tomorrow if rate controlled. Additional history obtained via discussions with the bedside RN, case supervisor, pharmacist. These discussions contributed to the creation of the above assessment and plan. I have reviewed patient's presenting documentation, labs, and imaging personally. Time-Based Coding :: [TOTAL MINUTES] spent with patient and on the chart (including review of chart, obtaining history, exam, reviewing outside data, placing orders, documenting exam and treatment plan, and counseling patient) on [DATE].
[2023-12-22] MEDS: RIVAROXABAN 10 MG TABLET 20 MG PO (20:30)
[2023-12-22] MEDS: dilTIAZem CD 120 MG CAP 240 MG PO (20:30)
--- NOTE | 2023-12-22 23:13 | PC.NURSE ---
PT converted to NSR at 2250 per telemetry. HR 55-65.
[2023-12-23] VITALS: BP 117/70; PULSE 71; RESP 18; TEMP 36.5; O2SAT 97
[2023-12-23 04:00] VITALS: BP 148/70; PULSE 56; RESP 16; TEMP 36.7; O2SAT 95
[2023-12-23] MEDS: LEVOTHYROXINE 75 MCG TABLET PO (05:27)
[2023-12-23 05:36] LABS: BUN Creatinine Ratio 42.3 (6-22); Blood Urea Nitrogen 22 mg/dL (7-17); Carbon Dioxide 26 mmol/L (22-32); Chloride 107 mmol/L (98-107); Estimated Glomerular Filt Rate > 60 mL/min (>60); Glucose 126 mg/dL (80-110); HEMOLYSIS < 15 (0-50); Magnesium 1.8 mg/dL (1.6-2.3); Potassium 3.9 mmol/L (3.4-5.1); Sodium 138 mmol/L (137-145)
[2023-12-23 07:53] VITALS: BP 140/63; PULSE 59; RESP 19; TEMP 36.5; O2SAT 97
--- NOTE | 2023-12-23 08:06 | PM.PN.1 ---
Subjective Subjective Interval history: S: Exam Vital Signs (past 8 hours): - 12/23/23 04:00 12/23/23 07:53 Temperature 98.1 F 97.7 F Pulse Rate 56 L 59 L Respiratory Rate 16 19 Blood Pressure 148/70 H 140/63 Pulse Oximetry 95 97 Oxygen Flow Rate 0 Oxygen Delivery Method Room Air Oxygen Flow Rate 0 Narrative Exam Narrative: NAD, alert and oriented. Fluent speech. Lungs are clear, normal rate and effort. Heart is irregular, no murmur gallop or rub. Abdomen is soft, non distended. Extremities are free of edema. Objective Labs 12/20/23 05:25 12/23/23 05:15 Labs: Laboratory Results - last 24 hr 12/23/23 05:15 Sodium 138 Potassium 3.9 Chloride 107 Carbon Dioxide 26 BUN 22 H Creatinine 0.52 Estimated GFR > 60 BUN/Creatinine Ratio 42.3 H Glucose 126 H Calcium 10.0 Magnesium 1.8 PFSH Medical History Dyslipidemia Osteoporosis Colon cancer screening declined (11/2019) Allergies Knee pain Intrauterine pessary (~2018) Vitamin D deficiency (07/2019) Screening for malignant neoplasm of colon (02/2021) Type 2 diabetes mellitus (07/2019) Essential hypertension (1989) Acquired hypothyroidism Surgical History H/O: hysterectomy Anesthesia Status post bunionectomy Status post breast biopsy Status post endometrial ablation Family History Father Diabetes mellitus Heart disease Pancreatitis Heart attack Hyperlipidemia Hypertension Grandfather Heart disease Cancer Grandmother Heart disease Mother Heart disease Hypertension Hyperlipidemia Grandmother Heart disease Hypertension Sister Age: 63 Hypertension Brother Heart disease Brother Heart disease Brother Heart disease Social History household members: spouse Smoking Status: Former smoker alcohol intake: never eating out: 1-3 times/week Type(s) of exercise: walking Assessment & Plan Assessment & Plan narrative: 1. Atrial fibrillation with RVR. Present on admission and active. 2. Hypertension. Present on admission and active. 3. Hypothyroidism. ?Present on admission and active. 4. Non-insulin independent diabetes. Present on admission and active. 5. Asymptomatic bacteuria. Present on admission and active. 6. Hypomagnesemia. Present on admission and active. Plan: - change from 60 mg TID dilt SR to 240 mg CD with dose at 2000 today in hopes of improved rate control. - TTE with preserved EF, no significant valvular pathologies. - continue xarelto - increased home metoprolol to 25 mg BID, dilt as noted above. - urinalysis positive, but no recent symptoms. Caal sensitive E. coli on prior cultures, likely similar results this admission, likely colonization. - K 3.9, Mg 1.6, will replete with 2g IV mag. - has follow up with cardiology later this week scheduled. Code: Full, surrogate is patient's spouse DVT: Lovenox daily Time-Based Coding :: [TOTAL MINUTES] spent with patient and on the chart (including review of chart, obtaining history, exam, reviewing outside data, placing orders, documenting exam and treatment plan, and counseling patient) on [DATE].
[2023-12-23 09:10] VITALS: BP 140/63; PULSE 65
[2023-12-23] MEDS: FENOFIBRATE, MICRONIZED 67 MG CAPSULE 201 MG PO (09:10)
[2023-12-23] MEDS: METOPROLOL ER 25 MG TABLET PO (09:10)
[2023-12-23] MEDS: SODIUM CHLORIDE 0.9% FLUSH 10 ML IV (09:11)
[2023-12-23 09:40] VITALS: PULSE 63
--- NOTE | 2023-12-23 11:21 | PM.DS.1 ---
History of Present Illness History of Present Illness Chief complaint: afib trouble breathing Narrative: From H&P: 68-year-old female with past medical history of dislipidemia hypertension, diabetes and hypothyroidism presents with palpitation. Of note, the patient recently was diagnosed with atrial fibrillation on December 06 2023. The patient was incidentally found to have atrial fibrillation when she was evaluated pre-operative for elective cholecystectomy. The patient was started on metoprolol and Xarelto for chronic anticoagulation. However for unclear reason the patient recently had metoprolol dose decreased from 50 mg to 25 mg once daily. This afternoon, the patient started to have a sensation of palpitation. The patient however denies any chest pain, shortness of breath, fever, chills, coughing, nausea, vomiting or diarrhea . In our emergency room, the patient was found to be in atrial fibrillation with RVR. The patient was immediately started on Diltiazem drip. Due to recent initiation of Xelralto no cardioversion was possible. Laboratory was relatively benign except for INR being 1.8 and calcium slightly high at 10.9. BNP was 622. Chest x-ray shows no acute finding. Cardiology was called and recommended admission for rate control and echocardiogram in the morning.? Discharge Providers Provider Date of admission: 12/21/23 12:31 Discharge Date: 12/23/23 Primary care physician: FABIANA Monzon Discharge provider: Jean Paul Bennett MD Summary Hospital Course Discharge Diagnosis: 1. Atrial fibrillation with RVR. Present on admission and improved. 2. Hypertension. Present on admission and stable. 3. Hypothyroidism. ?Present on admission and stable. 4. Non-insulin independent diabetes. Present on admission stable. 5. Asymptomatic bacteuria. Stable. 6. Hypomagnesemia. Present on admission and resolved. Hospital Course: She was admitted with atrial fibrillation rapid response. Echo revealed preserved EF and no valve abnormalities. She was on Xarelto before coming to the hospital as she has been diagnosed with atrial fibrillation since mid November when she presented for a cholecystectomy. The procedure was canceled. Her magnesium was repleted. Here she required titration of her diltiazem upward as well as continuing her metoprolol 25 b.i.d. for rate control. Ultimately she had good rate control on diltiazem SR 240 daily and her metoprolol 25 b.i.d. baseline dosing. Her home lisinopril was held. On the day of discharge she was in sinus rhythm, having converted at about 10:00 p.m. on December 21. She was an appointment with Cardiology tomorrow, Dr. Patel. I met with her and her 2 sons at the bedside. We went over the nature of atrial fibrillation, current goals and what to expect in the future. All questions were answered. Status at Discharge Cognitive/behavioral status at discharge: oriented Functional status at discharge: independent ambulation Overall status at discharge: patient is back to baseline Time Spent with Patient Time spent: Greater than 30 minutes Exam Vital Signs (past 8 hours): - 12/23/23 04:00 12/23/23 07:53 12/23/23 09:10 Temperature 98.1 F 97.7 F Pulse Rate 56 L 59 L 65 Respiratory Rate 16 19 Blood Pressure 148/70 H 140/63 140/63 Pulse Oximetry 95 97 Oxygen Flow Rate 0 12/23/23 09:40 Temperature Pulse Rate 63 Respiratory Rate Blood Pressure Pulse Oximetry Oxygen Flow Rate Oxygen Delivery Method Room Air Oxygen Flow Rate 0 Narrative Exam Narrative: NAD, alert and oriented. Fluent speech. Lungs are clear, normal rate and effort. Heart is regular, no murmur gallop or rub. Abdomen is soft, non distended. Extremities are free of edema. Objective ECG Impression: Atrial fibrillation with rapid ventricular response with premature ventricular or aberrantly conducted complexes ST & T wave abnormality, consider inferolateral ischemia Electronically Signed On 12-22-2023 14:43:24 PDT by Lamin Clark Imaging Multiple studies:: Radiologist's impression: Echo: 1) Normal left ventricular thickness, size, wall motion, and systolic function (EF 55-60%).. 2) Normal right ventricular size and function. 3) The left atrium is severely dilated. 4) There is mild to moderate aortic regurgitation. 5 The ascending aorta is mild-moderately enlarged. 6) Compared to the Echo done 01/23/2016, no significant change. Chest x-ray: No acute pulmonary process. Labs 12/20/23 05:25 12/23/23 05:15 Labs: Laboratory Results - last 24 hr 12/23/23 05:15 Sodium 138 Potassium 3.9 Chloride 107 Carbon Dioxide 26 BUN 22 H Creatinine 0.52 Estimated GFR > 60 BUN/Creatinine Ratio 42.3 H Glucose 126 H Calcium 10.0 Magnesium 1.8 PFSH Medical History Dyslipidemia Osteoporosis Colon cancer screening declined (11/2019) Allergies Knee pain Intrauterine pessary (~2018) Vitamin D deficiency (07/2019) Screening for malignant neoplasm of colon (02/2021) Type 2 diabetes mellitus (07/2019) Essential hypertension (1989) Acquired hypothyroidism Surgical History H/O: hysterectomy Anesthesia Status post bunionectomy Status post breast biopsy Status post endometrial ablation Family History Father Diabetes mellitus Heart disease Pancreatitis Heart attack Hyperlipidemia Hypertension Grandfather Heart disease Cancer Grandmother Heart disease Mother Heart disease Hypertension Hyperlipidemia Grandmother Heart disease Hypertension Sister Age: 63 Hypertension Brother Heart disease Brother Heart disease Brother Heart disease Social History household members: spouse Smoking Status: Former smoker alcohol intake: never eating out: 1-3 times/week Type(s) of exercise: walking Discharge Assessment & Plan Assessment and Plan Assessment: 1. Atrial fibrillation with RVR. Present on admission and improved. Plan of Treatment: Discharge home on a rate medication and anticoagulation with a follow up with Dr. Patel tomorrow. She would probably benefit from a Zio patch. Discharge Plan Discharge Plan Patient Disposition: Home Provider Discharge Comment: Stable for discharge home with rate control and close follow up with Cardiology, scheduled for tomorrow December 23. Discharge orders & Medications Prescriptions: New diltiazem HCl 120 mg Capsule,Extended Release 24hr 240 mg PO 1999 Qty: 30 0RF metoprolol succinate 25 mg Tablet Extended Release 24 Hr 25 mg PO BID Qty: 60 0RF Continued fenofibrate 160 mg tablet 160 mg PO DAILY Qty: 90 3RF levothyroxine 75 mcg tablet 75 mcg PO DAILY Qty: 90 2RF loratadine [Allergy Relief (loratadine)] 10 mg tablet 10 mg PO DAILY acetaminophen 325 mg tablet 650 mg PO Q4-6H PRN (Reason: pain) metformin 500 mg tablet 500 mg PO BID Xarelto 20 mg tablet 20 mg PO DAILY Discontinued lisinopril 20 mg tablet 20 mg PO DAILY Qty: 30 0RF metoprolol succinate 50 mg tablet extended release 24 hr 25 mg PO DAILY Medication counseling provided by Pharmacist: No Follow up/Referrals: Mando Puetne ARNP [Primary Care Provider] - Discharge Health Status Multidrug resistant organism: No MDRO Diet/Activity/Treatments Diet: Carb-consistent/Diabetic Activity: As toelrated. Other treatments: Blood pressure, heart rate and weakness log twcie a day( write down) Visit Report/Discharge Packet Instructions: DI for Atrial Fibrillation Stand Alone Forms: Patient Portal/API Discharge Data Primary Care Provider: Mando Puente
--- NOTE | 2023-12-23 12:25 | CM.DPNOTE ---
DC Note Patient has been discharged home today, heart rate has converted. Plan remains discharge home with family, close outpatient follow up recommended. No needs from this CM team identified. JOSE
== END 2023-12-23 13:30 | disposition home or self-care (01) | DRG 310 ==
LOC: ED 12-20 00:17 → ICU 12-20 09:32 → AC 12-21 06:31 → ICU 12-21 06:31
PROVIDERS: Internal Medicine; Admitting Provider Internal Medicine; Emergency Provider Emergency Medicine; PCP Registered Nurse Diabetes Educator; Referring Provider Emergency Medicine; Visit Provider Internal Medicine
DX: I48.91 Unspecified atrial fibrillation (principal); I10 Essential (primary) hypertension; E03.9 Hypothyroidism, unspecified; E11.9 Type 2 diabetes mellitus without complications; R82.71 Bacteriuria; E83.42 Hypomagnesemia; E78.5 Hyperlipidemia, unspecified; Z79.01 Long term (current) use of anticoagulants; Z79.84 Long term (current) use of oral hypoglycemic drugs; Z87.891 Personal history of nicotine dependence
CPT/HCPCS: 36415; 71045; 80048; 80053; 81001; 81003; 82550; 82962; 83690; 83735; 83880; 84484; 85025; 85610; 85730; 87077; 87086; 87186; 87797; 93005; 93306; 96374; 99284; 99291; G0378; J1815; J3475

== ENCOUNTER → 2023-12-30 16:05 | Outpatient (CLI) | payer MEDICARE, SELFPAY ==
[2023-12-20 00:31] VITALS: BMI 27.0
[2023-12-30 16:54] LABS: BUN Creatinine Ratio 36.4 (6-22); Blood Urea Nitrogen 20 mg/dL (7-17); Calcium 10.6 mg/dL (8.4-10.2); Carbon Dioxide 27 mmol/L (22-32); Chloride 103 mmol/L (98-107); Estimated Glomerular Filt Rate > 60 mL/min (>60); Glucose 105 mg/dL (80-110); HEMOLYSIS < 15 (0-50); Potassium 3.8 mmol/L (3.4-5.1); Sodium 138 mmol/L (137-145)
== END ==
PROVIDERS: PCP Registered Nurse Diabetes Educator; Referring Provider Internal Medicine Cardiovascular Disease; Visit Provider Internal Medicine Cardiovascular Disease
DX: I48.0 Paroxysmal atrial fibrillation (principal)
CPT/HCPCS: 36415; 80048

== ENCOUNTER → 2024-01-05 09:36 | Outpatient (CLI) | payer MEDICARE, SELFPAY ==
[2023-12-20 00:31] VITALS: BMI 27.0
--- NOTE | 2024-01-05 09:38 | DI.NM.S_ITS ---
PROCEDURE: NM JAMAL PERF SPECT REST & STR Rest and exercise myocardial perfusion SPECT with gated imaging and ejection fraction RADIOPHARMACEUTICAL: 11.6 mCi Tc-99m sestamibi IV at rest and 27.2 mCi Tc-99m sestamibi IV at peak exercise. A 1 day-protocol was performed. INDICATIONS: PAROXYSMAL AFIB PQRS ATTESTATIONS: Measure 322 - Is this imaging test primarily performed on a low-risk surgery patient for preoperative evaluation within 30 days preceding their low-risk non-cardiac surgery? Low-risk surgery is defined as cardiac or myocardial infarction less than 1%, including (but not limited to) endoscopic procedures, superficial procedures, cataract surgery, and excisional breast surgery: Answer: No Measure 323 - Is this imaging test performed primarily for the monitoring of an asymptomatic patient who had percutaneous coronary intervention on the visit date or within 2 years of the visit date? Answer: No Measure 324 - Is this imaging test performed primarily for the initial detection and risk assessment on an asymptomatic, low coronary heart disease patient? Low CHD risk definition = clinicians should consider the maximum number of available patient factors used to estimate risk based on [place] (ATP III criteria), typically age, gender, diabetes, smoking status, and use of blood pressure medication, and integrate age appropriate estimates for missing elements, such as LDL or standard blood pressure. Answer: No TECHNIQUE: Radiopharmaceutical was injected at peak stress test, and also at rest. SPECT images were obtained. SPECT myocardial perfusion images were displayed in short axis, horizontal long axis, and vertical long axis views. Gated images were reviewed using [employer] software. COMPARISON: None. CARDIAC STRESS: A standard Kendrick treadmill exercise tolerance test was performed by the patient under the supervision of an attending staff. The patient exercised for 6 minutes and 21 seconds; functional aerobic impairment (AKUA) is negative to %. Hemodynamic data: There is normal blood pressure and heart rate response to exercise stress. Patient achieved 123% of maximum predicted heart rate at peak exercise. Symptoms: Patient denied chest pain during exercise. EKG: Horizontal ST depressions noted in the inferolateral leads starting at 5 minutes and 20 seconds into the stress phase. STD depressions resolved 1 minute into recovery. PSVT was present at 1 minute and 15 seconds into recovery. This was resolved with Valsalva maneuver. FINDINGS: Raw data: There is good myocardial labeling by radiotracer. No significant motion artifacts. Idwo-jt-ydyge ratio is N/A (normal is less than 0.38 for sestamibi tracer, and less than 0.50 for thallium tracer). Left ventricle function: Gated images demonstrate normal left ventricle wall thickening. No segmental wall motion abnormality. No transient ischemic dilation; TID is 0.94 (normal less than 1.3). The left ventricle resting end-diastolic volume is 142 mL. Left ventricle stress ejection fraction is 75; normal values are above 45%. Myocardial perfusion: No perfusion defects were noted in the rest images. There was slight hypoperfusion in the distal anterior apical segment in the stress images. There was improvement in the perfusion defect on prone images in the vertical long axis views. However, no perfusion defects were noted in the prone images in the short axis and horizontal long axis views. This most likely indicates the presence of artifact. IMPRESSION: 1. Negative exercise myocardial perfusion scan for ischemia and infarction. 2. Short RP tachycardia resolved with Valsalva maneuver. Dictated by: Jorge Ortiz M.D. on 01/05/2024 at 15:52 Approved by: Jorge Ortiz M.D. on 01/05/2024 at 15:57
== END ==
LOC: NUCM 09:37
PROVIDERS: PCP Registered Nurse Diabetes Educator; Referring Provider Internal Medicine Cardiovascular Disease; Visit Provider Internal Medicine Cardiovascular Disease
DX: I48.0 Paroxysmal atrial fibrillation (principal)
CPT/HCPCS: 78452; 93017; A9502

== ENCOUNTER → 2024-01-07 12:33 | Outpatient (CLI) | payer MEDICARE, SELFPAY ==
[2023-12-20 00:31] VITALS: BMI 27.0
--- NOTE | 2024-01-07 12:34 | DI.MRI.S_ITS ---
PROCEDURE: MR ABDOMEN LIVER PROTOCOL INDICATIONS: eval, f/u on 11/21 CT liver lesion TECHNIQUE: Coronal HASTE, axial 2D FLASH in- and [id number]; axial breath-hold T2 FSE. Dynamic axial VIBE during the administration of contrast; post-contrast coronal VIBE or 2D FLASH with fat saturation from the hepatic dome to the iliac crests. Optional diffusion weighted imaging and ADC may be performed. COMPARISON: [facility], CT, CT ABDOMEN PELVIS W CON, 11/22/2023, 18:25. FINDINGS: Image quality: Diagnostic Lower chest: No basal effusions. Liver: Hepatic steatosis. There is a hypervascular lesion measuring about 1 cm in hepatic segment 6, with arterial surrounding perfusion anomaly and contrast retention on delayed phase, most compatible with hemangioma. Other arterially hypervascular regions in the periphery of the liver seen on arterial phase, likely additional perfusion anomalies. Gallbladder and biliary system: Cholelithiasis. Borderline dilated CBD at 8 mm. at the CBD. Pancreas: No ductal dilation Spleen: Nonenlarged Adrenals: No discrete nodules Kidneys: No solid mass. No hydronephrosis. Vessels and lymph nodes: The main portal vein is patent. No abdominal aortic aneurysm. No pathologic lymph nodes by size criteria. Bowel and peritoneum: No evidence of small bowel obstruction. No pathologic ascites. Body wall: Unremarkable Bones: Unremarkable, degenerative changes. IMPRESSION: Hepatic background steatosis and hepatomegaly. Hypervascular lesion confirmed in segment 6, imaging most compatible with hemangioma. Cholelithiasis. Borderline dilated CBD. Correlate LFTs. Dictated by: Gabo Velásquez M.D. on 01/07/2024 at 13:51 Approved by: Gabo Velásquez M.D. on 01/07/2024 at 13:58
[2024-01-07 17:00] LABS: Vitamin D 25 Hydroxy (D3) 36.2 ng/mL (30.0-100.0)
== END ==
PROVIDERS: PCP Registered Nurse Diabetes Educator; Referring Provider Registered Nurse Diabetes Educator; Visit Provider Registered Nurse Diabetes Educator
DX: R16.0 Hepatomegaly, not elsewhere classified (principal); K76.9 Liver disease, unspecified; K80.20 Calculus of gallbladder without cholecystitis without obstruction; E83.52 Hypercalcemia; K76.0 Fatty (change of) liver, not elsewhere classified
CPT/HCPCS: 36415; 74183; 82306; 82397; 82652; A9579

== ENCOUNTER → 2024-01-11 10:10 | Outpatient (CLI) | payer MEDICARE, SELFPAY ==
[2023-12-20 00:31] VITALS: BMI 27.0
--- NOTE | 2024-01-11 10:12 | DI.CT.S_ITS ---
PROCEDURE: CT CHEST WO CON INDICATIONS: hypercalcemia, eval for granuloma or other TECHNIQUE: Noncontrast 5 mm thick sections acquired from the pulmonary apices to the posterior costophrenic angles. 1 mm lung window, 5 mm thick coronal and sagittal and 7 mm axial MIP reformats were then acquired. For radiation dose reduction, the following was used: automated exposure control, adjustment of mA and/or kV according to patient size. COMPARISON: [facility], CR, XR CHEST 1V, 12/19/2023, 21:22. FINDINGS: Image quality: Diagnostic. Lower Neck: No enlarged lymph nodes. Thyroid: No thyroid nodules which require sonographic follow up, per consensus guidelines. Axillae: No enlarged lymph nodes. Chest Wall: Unremarkable. Bones: No suspicious osseous lesion. Lungs and Pleura: No pneumothorax or pleural effusions. No consolidation or suspicious nodules. No calcified granuloma. Heart: Heart size is normal. Moderate coronary artery calcifications. No pericardial effusion. Thoracic Vessels: The aorta and pulmonary arteries demonstrate normal size. Mediastinum and Abbi: No enlarged lymph nodes. No calcified lymph nodes. Esophagus: No wall thickening. No hiatal hernia. Upper Abdomen: Hepatic steatosis. No calcified granuloma. No adrenal nodule. IMPRESSION: No mass or significant pulmonary nodules. Dictated by: Jamir Tucker M.D. on 01/11/2024 at 17:32 Approved by: Jamir Tucker M.D. on 01/11/2024 at 17:40
== END ==
PROVIDERS: PCP Registered Nurse Diabetes Educator; Referring Provider Registered Nurse Diabetes Educator; Visit Provider Registered Nurse Diabetes Educator
DX: K76.0 Fatty (change of) liver, not elsewhere classified (principal); I25.10 Atherosclerotic heart disease of native coronary artery without angina pectoris; E83.52 Hypercalcemia
CPT/HCPCS: 71250

== ENCOUNTER 2024-01-16 23:39 | Observation (INO) | payer MEDICARE, SELFPAY ==
[2023-12-20 00:31] VITALS: BMI 27.0
[2024-01-16 23:50] VITALS: BP 166/87; PULSE 165; RESP 16; TEMP 36.7; O2SAT 97; BMI 27.6
[2024-01-16 23:51] VITALS: PULSE 169; RESP 19
--- NOTE | 2024-01-16 23:51 | EKG_ITS ---
[facility] [address] [place] [address] Test Date: 2024-01-16 Pat Name: Ita Perla Department: [facility] Room: Gender: Female Bolt Maker: JOLIE : 1955 Requested By: Order Number: [id number] Reading MD: Jean Paul Bennett Measurements Intervals [place] Rate: 164 P: IN: QRS: 51 QRSD: 80 T: 219 QT: 238 QTc: 393 Interpretive Statements Critical Test Result: High HR Atrial fibrillation with rapid ventricular response Marked ST abnormality, possible inferolateral subendocardial injury Electronically Signed On 01-18-2024 7:51:25 PST by Jean Paul Bennett
[2024-01-16 23:52] VITALS: BP 166/87; PULSE 165; RESP 24; O2SAT 97
--- NOTE | 2024-01-16 23:52 | ED_ITS ---
HPI - Arrhythmia/Palpitations General Chief Complaint: Arrhythmia/Palpitations Stated Complaint: afib Time Seen by Provider: 01/16/24 23:40 History of Present Illness HPI narrative: 68-year-old female with history of atrial fibrillation on metoprolol, diltiazem, Xarelto presents by private vehicle from home concerned that she was in atrial fibrillation. Patient states that this afternoon she began to feel lightheaded and shaky, like she got when she 1st went into atrial fibrillation. Patient reports compliance with her Xarelto, metoprolol, and Eliquis, denies any missed doses. She was scheduled for an upcoming stress test with Dr. Ortiz of cardiology Related Data Home Medications Medication Instructions Recorded Confirmed loratadine 10 mg tablet (Allergy 10 mg PO DAILY 03/20/23 12/30/23 Relief (loratadine)) acetaminophen 325 mg tablet 650 mg PO Q4-6H PRN pain 04/30/23 12/30/23 metformin 500 mg tablet 500 mg PO BID 12/20/23 12/30/23 rivaroxaban 20 mg tablet (Xarelto) 20 mg PO DAILY 12/20/23 12/30/23 lisinopril 10 mg tablet 10 mg PO DAILY 12/30/23 12/30/23 metoprolol succinate 25 mg 25 mg PO .QD 12/30/23 tablet,extended release 24 hr Previous Rx's Medication Instructions Recorded fenofibrate 160 mg tablet 160 mg PO DAILY #90 tabs 06/24/23 levothyroxine 75 mcg tablet 75 mcg PO DAILY #90 tabs 09/08/23 diltiazem HCl 120 mg 240 mg (2 x 120 mg) PO 1999 #30 12/23/23 capsule,extended release 24 hr caps Allergies Allergy/AdvReac Type Severity Reaction Status Date / Time azithromycin Allergy Mild Rash Verified 12/19/23 21:21 Patient History Medical History Paroxysmal atrial fibrillation Dyslipidemia Osteoporosis Colon cancer screening declined (11/2019) Allergies Knee pain Intrauterine pessary (~2018) Vitamin D deficiency (07/2019) Screening for malignant neoplasm of colon (02/2021) Type 2 diabetes mellitus (07/2019) Essential hypertension (1989) Acquired hypothyroidism Surgical History H/O: hysterectomy Anesthesia Status post bunionectomy Status post breast biopsy Status post endometrial ablation Family History Father Diabetes mellitus Heart disease Pancreatitis Heart attack Hyperlipidemia Hypertension Grandfather Heart disease Cancer Grandmother Heart disease Mother Heart disease Hypertension Hyperlipidemia Grandmother Heart disease Hypertension Sister Age: 64 Hypertension Brother Heart disease Brother Heart disease Brother Heart disease Social History household members: spouse Smoking Status: Former smoker alcohol intake: never eating out: 1-3 times/week Type(s) of exercise: walking Smoking Status: Former smoker tobacco type: cigarettes alcohol intake frequency: other Substance Use Type: does not use Exam Initial Vital Signs Initial Vital Signs: Vital Signs Temperature 98.1 F 01/16/24 23:50 Pulse Rate 165 H 01/16/24 23:50 Respiratory Rate 16 01/16/24 23:50 Blood Pressure 166/87 H 01/16/24 23:50 Pulse Oximetry 97 01/16/24 23:50 Oxygen Delivery Method Room Air 01/16/24 23:50 Const: Awake, alert, mildly anxious, nontoxic appearing Cardiac: Tachycardia RESP: unlabored, clear bilaterally, no wheezing MSK: No edema, full range of motion, pulses equal Skin: Warm, Dry, intact, no rashes Neuro: AO x3, CN II-XII grossly intact, moves all extremities Procedures Cardioversion Consent Signed: Yes Indication: Atrial fibrillation with RVR Stability: Stable Number of attempts (shocks): 3 Joules used: 150 and 200 Cardiac rhythm post-cardioversion: Atrial fibrillation with RVR Additional Comments: Unsuccessful cardioversion Procedural Sedation Consent signed: Yes Time out performed: Yes Indication: cardioversion ASA Class: II Mallampati Airway Classification: Class II Time of Last PO Intake: 18:00 Preparation: school lunch monitor applied, pulse oximeter, capnometry used, supplemental O2 applied, suction/airway equipment at bedside and IV secured IV Propofol dose (mg): 60 Intraservice time/total sedation time (min): 15 ED Sedation Level: Moderate (Concious) Complications: none Course Orders Ordered: ED Orders 01/16/24 23:41 EKG-12 Lead Stat 01/16/24 23:56 CBC Auto Diff [Complete Blood Count AUTO DIFF] Stat CMP [Comprehensive Metabolic Panel] Stat MAG [Magnesium] Stat Troponin & CK Cardiac Panel Stat Acetaminophen (Acetaminophen 325 Mg Tablet) 650 mg PO Q6H PRN PRN Reason: Fever/Mild Pain (1-3) Amiodarone HCl/Dextrose (Nexterone) 360 mg in 200 mls @ 33.333 mls/hr IV NOW ONE; Protocol Stop: 01/17/24 06:48 Last Admin: 01/17/24 01:25 Dose: 33.3 mls/hr, 33.3 mls/hr Documented By: PRATIMA Naloxone HCl (Naloxone 0.4 Mg/Ml Vial) 0.2 mg IV Q2MIN PRN PRN Reason: Opiate Reversal Ondansetron HCl (Ondansetron 4 Mg/2 Ml Inj) 4 mg IV Q8HR PRN PRN Reason: Nausea And Vomiting Pantoprazole Sodium (Pantoprazole Dr 20 Mg Tablet) 20 mg PO 0600 SD Discontinued Medications Amiodarone HCl/Dextrose (Nexterone) 150 mg in 100 mls @ 600 mls/hr IV NOW ONE; Protocol Stop: 01/17/24 00:58 Last Infusion: 01/17/24 01:25 Dose: Infused Documented By: Admin: 01/17/24 01:06 Dose: 600 mls/hr Documented By: PRATIMA Lorazepam (Lorazepam 2 Mg/Ml Inj) 2 mg IV NOW ONE Stop: 01/17/24 00:11 Last Admin: 01/17/24 00:17 Dose: 2 mg Documented By: PRATIMA Propofol (Propofol 200 Mg/20 Ml Vial) 200 mg IV NOW ONE Stop: 01/17/24 00:10 Last Admin: 01/17/24 00:41 Dose: 60 mg Documented By: PRATIMA Vital Signs Vital signs: Vital Signs - 8 hr 01/16/24 23:50 01/16/24 23:51 01/16/24 23:52 Temperature 98.1 F Pulse Rate 165 H 169 H 165 H Respiratory Rate 16 19 24 Blood Pressure 166/87 H Pulse Oximetry 97 97 Oxygen Delivery Method Room Air Oxygen Flow Rate 01/16/24 23:52 01/17/24 00:03 01/17/24 00:04 Temperature Pulse Rate 162 H Respiratory Rate Blood Pressure 166/87 H 193/105 H Pulse Oximetry 97 Oxygen Delivery Method Room Air Oxygen Flow Rate 01/17/24 00:04 01/17/24 00:30 01/17/24 00:30 Temperature Pulse Rate 163 H 140 H Respiratory Rate 13 18 Blood Pressure 128/90 Pulse Oximetry 96 96 Oxygen Delivery Method Room Air Oxygen Flow Rate 01/17/24 00:36 01/17/24 00:45 01/17/24 00:45 Temperature Pulse Rate 155 H 141 H Respiratory Rate 16 22 Blood Pressure 128/90 114/78 Pulse Oximetry 97 94 Oxygen Delivery Method Nasal Cannula Oxygen Flow Rate 2.5 01/17/24 00:47 01/17/24 00:49 01/17/24 00:50 Temperature Pulse Rate 131 H 144 H Respiratory Rate 19 19 Blood Pressure 114/78 123/71 123/71 Pulse Oximetry 96 94 Oxygen Delivery Method Oxygen Flow Rate 2.5 0 01/17/24 00:50 01/17/24 00:55 01/17/24 00:55 Temperature Pulse Rate 136 H 127 H Respiratory Rate 44 H 19 Blood Pressure 121/80 Pulse Oximetry 92 95 Oxygen Delivery Method Room Air Oxygen Flow Rate 01/17/24 01:00 01/17/24 01:00 01/17/24 01:05 Temperature Pulse Rate 131 H Respiratory Rate 19 Blood Pressure 117/70 112/84 Pulse Oximetry 93 Oxygen Delivery Method Oxygen Flow Rate 01/17/24 01:05 Temperature Pulse Rate 128 H Respiratory Rate 19 Blood Pressure Pulse Oximetry 94 Oxygen Delivery Method Oxygen Flow Rate MDM - Arrhythmia/Palpitations Differential Diagnosis Differential diagnosis: Likely palpitations, artial fibrillation and artial flutter Lab Data 01/16/24 23:56 01/16/24 23:56 Labs: Lab Results 01/16/24 Range/Units 23:56 WBC 9.0 (4.5-11.0) X10^3/uL RBC 5.17 (4.0-5.2) X10^6/uL Hgb 15.1 (12.0-16.0) g/dL Hct 44.7 (36-46) % MCV 86.4 (80-100) fL MCH 29.2 (26-34) PG MCHC 33.8 (30-36) % RDW 13.3 (11.6-14.8) % Plt Count 259 (150-400) X10^3/uL Neut % (Auto) 47.4 L (50-75) % Lymph % (Auto) 43.2 H (25-40) % Bertie % (Auto) 5.7 (3-14) % Eos % (Auto) 2.9 (2-4) % Baso % (Auto) 0.8 (0-2) % Neut # (Auto) 4300 (7434-0532) /uL Lymph # (Auto) 3900 (0478-2914) /uL Bertie # (Auto) 500 (0-900) /uL Eos # (Auto) 300 (0-450) /uL Baso # (Auto) 100 (0-100) /uL Sodium 141 (137-145) mmol/L Potassium 3.6 (3.4-5.1) mmol/L Chloride 104 (98-107) mmol/L Carbon Dioxide 26 (22-32) mmol/L BUN 25 H (7-17) mg/dL Creatinine 0.48 L (0.52-1.04) mg/dL Estimated GFR > 60 (>60) mL/min BUN/Creatinine Ratio 52.1 H (6-22) Glucose 160 H (80-110) mg/dL Calcium 11.1 H (8.4-10.2) mg/dL Magnesium 1.7 (1.6-2.3) mg/dL Total Bilirubin 0.5 (0.2-1.3) mg/dL AST 30 (14-36) IU/L ALT 26 (<35) IU/L Alkaline Phosphatase 116 (38-126) U/L Total Creatine Kinase 70 (30-135) U/L Troponin I < 0.012 (0.01-0.034) ng/mL Total Protein 10.1 H (6.3-8.2) g/dL Albumin 5.3 H (3.5-5.0) g/dL Globulin 4.8 H (1.7-4.1) g/dL Albumin/Globulin Ratio 1.1 (1.0-2.8) Point of Care Testing Test Results Not applicable ECG Data Attestation: I personally reviewed and interpreted this ECG as follows: Interpretation: Atrial fibrillation with rapid ventricular response, 164 beats per minute, no STEMI MDM Narrative Medical decision making narrative: Patient presenting in atrial fibrillation with RVR. Reports 100% compliance with all of her medications. Case discussed with Dr. Proctor of Cardiology, he stated that since patient has been on anticoagulation for 4 weeks she was a candidate for electrical cardioversion. Risks and benefits of cardioversion discussed with patient and has been at bedside. They would like to proceed with cardioversion at this time. Patient reports extreme anxiety over her atrial fibrillation. A small dose of Ativan ordered for anxiolysis. Unfortunately cardioversion not successful. Synchronized cardioversion attempts at 150J, 200J, and 200J made without conversion to sinus rhythm. Remains in Afib with rvr (140bpm). Cardiology reconsulted, they recommend bolus of 150 mg of amiodarone and 24 hour loading protocol of amiodarone. Patient in agreement with admission at this time. Critical Care Time Critical Care Time Critical Care Time: Yes Total Critical Care Time: 41 Attestation: Atrial fibrillation with rapid ventricular response requiring cardioversion and cardiology consultation. Discharge Plan Departure Patient Disposition: Admitted as Observation Clinical Impression: Atrial fibrillation with RVR Admit Date/Time: 01/17/24 01:42 Admit Provider: Allie Richter
[2024-01-17] VITALS (40 sets, daily range): BP systolic 110–193; BP diastolic 65–105; PULSE 60–163; RESP 12–44; TEMP 36.3–36.9; O2SAT 92–99; BMI 28.8
--- NOTE | 2024-01-17 00:03 | PC.NURSE ---
Assisted to restroom via wheel chair.
[2024-01-17 00:08] LABS: Add Manual Diff / Slide Review NO; Basophils Absolute Auto 100 /uL (0-100); Basophils Percent Auto 0.8 % (0-2); Eosinophils Absolute Auto 300 /uL (0-450); Eosinophils Percent Auto 2.9 % (2-4); Hematocrit 44.7 % (36-46); Hemoglobin 15.1 g/dL (12.0-16.0); Lymphocytes Absolute Auto 3900 /uL (1100-4500); Lymphocytes Percent Auto 43.2 % (25-40); Mean Corpuscular HGB Conc 33.8 % (30-36); Mean Corpuscular Hemoglobin 29.2 PG (26-34); Mean Corpuscular Volume 86.4 fL (80-100); Monocytes Absolute Auto 500 /uL (0-900); Monocytes Percent Auto 5.7 % (3-14); Neutrophils Absolute Auto 4300 /uL (1500-7000); Neutrophils Percent Auto 47.4 % (50-75); Platelet Count 259 X10^3/uL (150-400); Red Blood Cell Count 5.17 X10^6/uL (4.0-5.2); Red Cell Distribution Width 13.3 % (11.6-14.8)
[2024-01-17] MEDS: LORazepam 2 MG/ML INJ IV (00:17)
[2024-01-17 00:18] LABS: Alanine Aminotransferase 26 IU/L (<35); Albumin 5.3 g/dL (3.5-5.0); Albumin Globulin Ratio 1.1 (1.0-2.8); Alkaline Phosphatase 116 U/L (38-126); Aspartate Aminotransferase 30 IU/L (14-36); BUN Creatinine Ratio 52.1 (6-22); Bilirubin Total 0.5 mg/dL (0.2-1.3); Blood Urea Nitrogen 25 mg/dL (7-17); Calcium 11.1 mg/dL (8.4-10.2); Carbon Dioxide 26 mmol/L (22-32); Chloride 104 mmol/L (98-107); Creatine Kinase 70 U/L (30-135); Estimated Glomerular Filt Rate > 60 mL/min (>60); Globulin 4.8 g/dL (1.7-4.1); Glucose 160 mg/dL (80-110); HEMOLYSIS 24 (0-50); Magnesium 1.7 mg/dL (1.6-2.3); Potassium 3.6 mmol/L (3.4-5.1); Sodium 141 mmol/L (137-145); Total Protein 10.1 g/dL (6.3-8.2)
[2024-01-17 00:30] LABS: Troponin I < 0.012 ng/mL (0.01-0.034)
[2024-01-17] MEDS: propofoL 200 MG/20 ML VIAL IV (00:41)
[2024-01-17] MEDS: AMIODARONE 150 MG/100 ML PIGGYBACK 600 MG IV (01:06)
[2024-01-17] MEDS: AMIODARONE 360 MG/200 ML PIGGYBACK 33.3 MG IV (01:25)
--- NOTE | 2024-01-17 01:53 | P.HP_ITS ---
History of Present Illness History of Present Illness Date Patient Seen: 01/17/24 Time Patient Seen: 03:00 Date of Onset of Symptoms: 01/16/24 Chief complaint: Atrial fibrillation Narrative: This patient is a 68 year old female with diabetes mellitus type II, hypertension, hyperlipidemia, hypothyroidism and atrial fibrillation who presented to the ER for lightheadedness and palpitations. She reports mild symptoms without any alleviating or exacerbating factors and denies any prior episodes. She reports compliance with all of her medications including Metoprolol succinate 25 mg daily in the morning, Diltiazem ER 240 mg daily in the evening, and Xarelto 20 mg daily. She reports that she had bradycardia noted one month ago by one of her physicians who decreased her Metoprolol succinate from 50 mg daily to 25 mg daily. In the ER, temperature was 98.1, pulse 128, respirations 19, blood pressure 112/84 and O2 saturation 94% on room air. WBC was 9.0, Hb 15.1, Hct 44.7, Plt 259, sodium 141, potassium 3.6, Cl 104, CO2 26, BUN 25, creatinine 0.48, glucose 160, CK 70, troponin < 0.012. EKG showed atrial fibrillation with RVR [address] abnormalities concerning for inferolateral subendocardial injury. Cardioversion was attempted three times unsuccessfully per the ER physician and cardiology then recommended Amiodarone drip. She is admitted for further medical management and monitoring. COUNTS INCLUDE 234 BEDS AT THE [facility] Medical History Paroxysmal atrial fibrillation Dyslipidemia Osteoporosis Colon cancer screening declined (11/2019) Allergies Knee pain Intrauterine pessary (~2018) Vitamin D deficiency (07/2019) Screening for malignant neoplasm of colon (02/2021) Type 2 diabetes mellitus (07/2019) Essential hypertension (1989) Acquired hypothyroidism Surgical History H/O: hysterectomy Anesthesia Status post bunionectomy Status post breast biopsy Status post endometrial ablation Family History Father Diabetes mellitus Heart disease Pancreatitis Heart attack Hyperlipidemia Hypertension Grandfather Heart disease Cancer Grandmother Heart disease Mother Heart disease Hypertension Hyperlipidemia Grandmother Heart disease Hypertension Sister Age: 64 Hypertension Brother Heart disease Brother Heart disease Brother Heart disease Social History household members: spouse Smoking Status: Former smoker alcohol intake: never eating out: 1-3 times/week Type(s) of exercise: walking Meds Home Medications and Allergies Home Medications Medication Instructions Recorded Confirmed Type loratadine 10 mg tablet (Allergy 10 mg PO DAILY 03/20/23 01/17/24 History Relief (loratadine)) acetaminophen 325 mg tablet 650 mg PO Q4-6H PRN pain 04/30/23 01/17/24 History fenofibrate 160 mg tablet 160 mg PO DAILY #90 tabs 06/24/23 01/17/24 Rx levothyroxine 75 mcg tablet 75 mcg PO DAILY #90 tabs 09/08/23 01/17/24 Rx metformin 500 mg tablet 500 mg PO BID 12/20/23 01/17/24 History rivaroxaban 20 mg tablet (Xarelto) 20 mg PO DAILY 12/20/23 01/17/24 History diltiazem HCl 120 mg 240 mg (2 x 120 mg) PO 1999 #30 12/23/23 01/17/24 Rx capsule,extended release 24 hr caps lisinopril 10 mg tablet 10 mg PO DAILY 12/30/23 01/17/24 History metoprolol succinate 25 mg 25 mg PO .QD 12/30/23 01/17/24 History tablet,extended release 24 hr Allergies Allergy/AdvReac Type Severity Reaction Status Date / Time azithromycin Allergy Mild Rash Verified 12/19/23 21:21 Review of Systems Constitutional Comments: No fever, chills, or sweats Eyes Comments: No vision changes ENT Comments: No congestion in nose, ears or throat Cardiovascular Comments: No chest pain. Reports palpitations Respiratory Comments: Reports shortness of breath (difficulty taking a deep breath). No cough or wheezing. Gastrointestinal Comments: No abdominal pain, nausea, vomiting, diarrhea or constipation Genitourinary Comments: No dysuria or hematuria Hematologic/Lymphatic Comments: No peripheral edema Exam Vital Signs (past 8 hours): - 01/16/24 23:50 01/16/24 23:51 01/16/24 23:52 Temperature 98.1 F Pulse Rate 165 H 169 H 165 H Respiratory Rate 16 19 24 Blood Pressure 166/87 H Pulse Oximetry 97 97 Oxygen Delivery Method Room Air Oxygen Flow Rate 01/16/24 23:52 01/17/24 00:03 01/17/24 00:04 Temperature Pulse Rate 162 H Respiratory Rate Blood Pressure 166/87 H 193/105 H Pulse Oximetry 97 Oxygen Delivery Method Room Air Oxygen Flow Rate 01/17/24 00:04 01/17/24 00:30 01/17/24 00:30 Temperature Pulse Rate 163 H 140 H Respiratory Rate 13 18 Blood Pressure 128/90 Pulse Oximetry 96 96 Oxygen Delivery Method Room Air Oxygen Flow Rate 01/17/24 00:36 01/17/24 00:45 01/17/24 00:45 Temperature Pulse Rate 155 H 141 H Respiratory Rate 16 22 Blood Pressure 128/90 114/78 Pulse Oximetry 97 94 Oxygen Delivery Method Nasal Cannula Oxygen Flow Rate 2.5 01/17/24 00:47 01/17/24 00:49 01/17/24 00:50 Temperature Pulse Rate 131 H 144 H Respiratory Rate 19 19 Blood Pressure 114/78 123/71 123/71 Pulse Oximetry 96 94 Oxygen Delivery Method Oxygen Flow Rate 2.5 0 01/17/24 00:50 01/17/24 00:55 01/17/24 00:55 Temperature Pulse Rate 136 H 127 H Respiratory Rate 44 H 19 Blood Pressure 121/80 Pulse Oximetry 92 95 Oxygen Delivery Method Room Air Oxygen Flow Rate 01/17/24 01:00 01/17/24 01:00 01/17/24 01:05 Temperature Pulse Rate 131 H Respiratory Rate 19 Blood Pressure 117/70 112/84 Pulse Oximetry 93 Oxygen Delivery Method Oxygen Flow Rate 01/17/24 01:05 Temperature Pulse Rate 128 H Respiratory Rate 19 Blood Pressure Pulse Oximetry 94 Oxygen Delivery Method Oxygen Flow Rate Oxygen Delivery Method Room Air Oxygen Flow Rate 0 Const Other: Awake, alert, oriented, anxious HENMS Other: NCAT, EOMI, dry mucous membranes Resp Other: Clear to auscultation bilaterally, no wheezing, rales or rhonchi Cardio Other: Irregularly irregular rhythm, tachycardic GI Other: Soft, nondistended, nontender Neuro Other: CN II-XII grossly intact, no focal deficits, normal speech Extrem Other: Moves all extremities, no peripheral edema Psych Other: Anxious, flat affect Objective Labs 01/16/24 23:56 01/16/24 23:56 Labs: Laboratory Results - last 24 hr 01/16/24 23:56 WBC 9.0 RBC 5.17 Hgb 15.1 Hct 44.7 MCV 86.4 MCH 29.2 MCHC 33.8 RDW 13.3 Plt Count 259 Neut % (Auto) 47.4 L Lymph % (Auto) 43.2 H Emery % (Auto) 5.7 Eos % (Auto) 2.9 Baso % (Auto) 0.8 Neut # (Auto) 4300 Lymph # (Auto) 3900 Emery # (Auto) 500 Eos # (Auto) 300 Baso # (Auto) 100 Sodium 141 Potassium 3.6 Chloride 104 Carbon Dioxide 26 BUN 25 H Creatinine 0.48 L Estimated GFR > 60 BUN/Creatinine Ratio 52.1 H Glucose 160 H Calcium 11.1 H Magnesium 1.7 Total Bilirubin 0.5 AST 30 ALT 26 Alkaline Phosphatase 116 Total Creatine Kinase 70 Troponin I < 0.012 Total Protein 10.1 H Albumin 5.3 H Globulin 4.8 H Albumin/Globulin Ratio 1.1 Assessment & Plan Assessment and plan (1) Atrial fibrillation with RVR: Status: Acute (2) Type 2 diabetes mellitus: Qualifiers: Diabetes mellitus complication status: without complication Diabetes mellitus halfway insulin use: without terminal operations manager use Qualified Code(s): E11.9 - Type 2 diabetes mellitus without complications Status: Acute (3) Essential hypertension: Status: Acute (4) Dyslipidemia: Status: Acute (5) Acquired hypothyroidism: Status: Acute Plan 1. Atrial fibrillation with RVR - present on admission, Dr. Sauceda was consulted by ER for cardiology evaluation and the patient was given Amiodarone bolus after unsuccessful attempts at cardioversion in ER. She continues to be on Amiodarone drip per protocol however remains tachycardic with HR 125 and SBP 155. Patient did take her home Diltiazem and Metoprolol succinate over the past day. Will give Diltiazem 30 mg now and increase her nightly dose of Diltiazem to 300 mg daily. Hold metoprolol succinate. Continue to monitor closely on telemetry, continue home Xarelto. 2. Diabetes mellitus type II - Chronic, on Metformin which will be continued. 3. Hypertension - Chronic, will be on Diltazem as above along with her home Lisinopril. Hold Metoprolol succinate. 4. Hyperlipidemia - Chronic, will continue home Fenofibrate. 5. Hypothyroidism - Chronic, will continue home Levothyroxine and check TSH and free T4. FEN: Cardiac GI prophylaxis: Famotidine DVT prophylaxis: Xarelto Code status: Full code - Emergency contact is her Evan Perla Dispo: Admit to ICU Time-Based Coding :: 30 spent with patient and on the chart (including review of chart, obtaining history, exam, reviewing outside data, placing orders, documenting exam and treatment plan, and counseling patient) on 01/17/24.
[2024-01-17] MEDS: dilTIAZem 30 MG TABLET PO (03:52)
[2024-01-17 05:13] LABS: Add Manual Diff / Slide Review NO; Basophils Absolute Auto 0 /uL (0-100); Basophils Percent Auto 0.5 % (0-2); Eosinophils Absolute Auto 100 /uL (0-450); Eosinophils Percent Auto 1.6 % (2-4); Hemoglobin 13.1 g/dL (12.0-16.0); Lymphocytes Absolute Auto 2100 /uL (1100-4500); Lymphocytes Percent Auto 31.2 % (25-40); Mean Corpuscular HGB Conc 33.6 % (30-36); Mean Corpuscular Hemoglobin 28.9 PG (26-34); Mean Corpuscular Volume 85.8 fL (80-100); Monocytes Absolute Auto 400 /uL (0-900); Monocytes Percent Auto 6.6 % (3-14); Neutrophils Absolute Auto 3900 /uL (1500-7000); Neutrophils Percent Auto 60.1 % (50-75); Platelet Count 232 X10^3/uL (150-400); Red Blood Cell Count 4.54 X10^6/uL (4.0-5.2); Red Cell Distribution Width 12.9 % (11.6-14.8); White Blood Cell Count 6.6 X10^3/uL (4.5-11.0)
[2024-01-17 05:28] LABS: BUN Creatinine Ratio 52.4 (6-22); Blood Urea Nitrogen 22 mg/dL (7-17); Calcium 10.1 mg/dL (8.4-10.2); Carbon Dioxide 28 mmol/L (22-32); Chloride 104 mmol/L (98-107); Estimated Glomerular Filt Rate > 60 mL/min (>60); Glucose 124 mg/dL (80-110); HEMOLYSIS < 15 (0-50); Potassium 3.7 mmol/L (3.4-5.1); Sodium 138 mmol/L (137-145)
[2024-01-17 05:36] LABS: NT-proBNP (BNP-Adult 18+) 602 pg/mL (<125)
[2024-01-17] MEDS: LEVOTHYROXINE 75 MCG TABLET PO (08:20)
[2024-01-17] MEDS: PANTOPRAZOLE DR 20 MG TABLET PO (08:21)
[2024-01-17 09:12] LABS: TSH w/ Reflex to FT4 2.63 uIU/mL (0.47-4.68)
[2024-01-17] MEDS: FENOFIBRATE, MICRONIZED 67 MG CAPSULE 201 MG PO (09:29)
[2024-01-17] MEDS: POTASSIUM CHLORIDE 20 MEQ TAB PO ×2 (09:29→10:53)
[2024-01-17] MEDS: RIVAROXABAN 10 MG TABLET 20 MG PO (09:29)
[2024-01-17] MEDS: LORATADINE 10 MG TABLET PO (09:31)
[2024-01-17] MEDS: METFORMIN HCL 500 MG TABLET PO ×2 (09:31→20:11)
[2024-01-17] MEDS: dilTIAZem CD 180 MG CAP PO (09:31)
[2024-01-17] MEDS: ACETAMINOPHEN 325 MG TABLET 650 MG PO (11:08)
[2024-01-17] MEDS: METOPROLOL IR 25 MG TABLET 12.5 MG PO ×3 (11:08→23:51)
--- NOTE | 2024-01-17 13:28 | CM.DANOTE ---
Initial DCP Assessment Note Pt is a 68 yo female, resident of [place], recent dx of afib, presents with complaint of afib. Admitted for further work up and medical management. According to review of chart, patient recently started on Xarelto, metoprolol, and Eliquis, denies any missed doses. Patient's rubber washer is Dr Ortiz. PCP: Mando Puente Payer: M[employer] Reviewed chart, met w/patient and her family at bedside. Patient lives independently with her and 91 yo MIL whom she cares for. Patient explains she has been struggling with her recent dx of afib and reports understanding about the correlation between rapid heart rate and anxiety; and how they can feed each other. Patient reports having good coping strategies when feeling anxious. Patient denies needs from this CM team currently; No barriers identified at this time to patient's safe discharge home w/family to assist; close outpatient f/u recommended. CM team will plan to follow clinical course closely in case any DC needs or concerns arise. MARIALUISA Walker Discharge Planning/Care Management CM Discharge Assessment Start: 01/17/24 13:27 Freq: Status: Active Protocol: Document 01/17/24 13:27 JOSE (Rec: 01/17/24 13:28 JOSE [id number]) Discharge Planning Assessment Assigned Cement Rubber MRAIALUISA Vences DPOA/Assigned Designee Name Braeden Perla, spouse Contact Information [phone] Advance Directives? No History Provided By Patient,Medical Record Prior Living Arrangements House Household Members spouse Type of transporation used prior to Drives own vehicle admit Independent with ADL's Yes Is patient alert and oriented? Yes Barriers to Discharge No Discharge Plan Home Transportation Arrangement Family Referrals Initiated None needed
--- NOTE | 2024-01-17 13:43 | PM.PN.1 ---
Subjective Subjective Interval history: 68-year-old female with hypothyroidism, hypertension, diabetes mellitus type 2, and dyslipidemia diagnosed with paroxysmal atrial fibrillation on December 05. He was incidentally found when she was evaluated preoperatively for elective cholecystectomy. She was initiated on metoprolol and Xarelto. She would become bradycardic and metoprolol was decreased from 50 mg a day to 25 mg. She presented to the hospital December 19 in atrial fibrillation with rapid ventricular response. Echocardiogram was performed which revealed a preserved ejection fraction and no valvular abnormalities. She had a mildly low magnesium level which was repleted. She was placed on a diltiazem drip and ultimately transitioned to oral diltiazem 240 mg daily and metoprolol 25 mg twice daily. She was seen by Cardiology on December 23 and was found to have sinus bradycardia with a heart rate of 52 on EKG. Cardiology recommended a stress test which if low risk she would be placed on flecainide 50 mg twice daily. He reduced her metoprolol from 25 mg twice daily to once daily to avoid bradycardia. He also restarted lisinopril 10 mg daily. He additionally recommended a sleep study. Stress test was done January 04 which was negative for ischemia and infarction. Exam Vital Signs (past 8 hours): - 01/17/24 08:11 01/17/24 08:30 01/17/24 08:33 Temperature 97.8 F Pulse Rate 114 H 112 H 110 H Respiratory Rate 16 Blood Pressure Pulse Oximetry 97 96 96 01/17/24 08:38 01/17/24 10:52 01/17/24 12:19 Temperature 97.3 F L Pulse Rate 110 H Respiratory Rate 16 Blood Pressure 115/77 123/83 149/83 H Pulse Oximetry 98 01/17/24 13:00 Temperature 97.8 F Pulse Rate Respiratory Rate 18 Blood Pressure 115/79 Pulse Oximetry Oxygen Delivery Method Room Air Oxygen Flow Rate 0 Narrative Exam Narrative: GEN: Anxious middle-aged female, pleasant, Alert and oriented x 3, NAD HEENT:NC, Face symmetric CHEST: Respiratory excursions symmetric, CTAB CV: Mildly tachycardic, irregularly irregular, no M/R/G ABD: Soft, NT/ND, BT present in all 4 quadrants, no organomegaly or masses EXTR: warm, well perfused, no C/C/E SKIN: warm and dry, no rash NEURO: Alert and oriented x 3, nonfocal Objective Labs 01/17/24 04:30 01/17/24 04:30 Labs: Laboratory Results - last 24 hr 01/16/24 01/17/24 23:56 04:30 WBC 9.0 6.6 RBC 5.17 4.54 Hgb 15.1 13.1 Hct 44.7 39.0 MCV 86.4 85.8 MCH 29.2 28.9 MCHC 33.8 33.6 RDW 13.3 12.9 Plt Count 259 232 Neut % (Auto) 47.4 L 60.1 Lymph % (Auto) 43.2 H 31.2 [place] % (Auto) 5.7 6.6 Eos % (Auto) 2.9 1.6 L Baso % (Auto) 0.8 0.5 Neut # (Auto) 4300 3900 Lymph # (Auto) 3900 2100 [place] # (Auto) 500 400 Eos # (Auto) 300 100 Baso # (Auto) 100 0 Sodium 141 138 Potassium 3.6 3.7 Chloride 104 104 Carbon Dioxide 26 28 BUN 25 H 22 H Creatinine 0.48 L 0.42 L Estimated GFR > 60 > 60 BUN/Creatinine Ratio 52.1 H 52.4 H Glucose 160 H 124 H Calcium 11.1 H 10.1 Magnesium 1.7 Total Bilirubin 0.5 AST 30 ALT 26 Alkaline Phosphatase 116 Total Creatine Kinase 70 Troponin I < 0.012 NT-Pro-B Natriuret Pep 602 H Total Protein 10.1 H Albumin 5.3 H Globulin 4.8 H Albumin/Globulin Ratio 1.1 TSH 2.63 PFSH Medical History Paroxysmal atrial fibrillation Dyslipidemia Osteoporosis Colon cancer screening declined (11/2019) Allergies Knee pain Intrauterine pessary (~2018) Vitamin D deficiency (07/2019) Screening for malignant neoplasm of colon (02/2021) Type 2 diabetes mellitus (07/2019) Essential hypertension (1989) Acquired hypothyroidism Surgical History H/O: hysterectomy Anesthesia Status post bunionectomy Status post breast biopsy Status post endometrial ablation Family History Father Diabetes mellitus Heart disease Pancreatitis Heart attack Hyperlipidemia Hypertension Grandfather Heart disease Cancer Grandmother Heart disease Mother Heart disease Hypertension Hyperlipidemia Grandmother Heart disease Hypertension Sister Age: 64 Hypertension Brother Heart disease Brother Heart disease Brother Heart disease Social History household members: spouse Smoking Status: Former smoker alcohol intake: never eating out: 1-3 times/week Type(s) of exercise: walking Assessment & Plan Assessment & Plan narrative: 1. Atrial fibrillation with rapid ventricular response As noted, patient has nonvalvular atrial fibrillation. She failed cardioversion in the emergency department. Stress test was negative and based on Dr. Patel's recommendations, she was to start flecainide. This will be initiated. Additionally, for now the Cardizem will be decreased from 240 mg daily to 180 mg daily. Will start metoprolol extended release 12.5 mg q.6 hours to attempt better rate control. Continue Xarelto. Will obtain a TSH as 1 has not been done since her diagnosis of AFib. 2. Hypertension Blood pressures are presently normotensive. Continue home dose of lisinopril. As noted, resume metoprolol and decrease diltiazem 3. Hyperlipidemia Continue fenofibrate 4. Hypothyroidism Continue levothyroxine. I have requested a TSH with reflex T4 5. Diabetes mellitus type 2 Last A1c was 5.9%. Continue usual home regimen. 6. Gallbladder disease Follow-up with her surgeon once her cardiac issues have been resolved Code status Full Prophylaxis On Xarelto Disposition Likely home tomorrow Time-Based Coding :: [TOTAL MINUTES] spent with patient and on the chart (including review of chart, obtaining history, exam, reviewing outside data, placing orders, documenting exam and treatment plan, and counseling patient) on [DATE]. Quality VTE Deep Vein Thrombosis/Pulmonary Embolism Present on Admission: No
[2024-01-17] MEDS: FLECAINIDE 100 MG TABLET 50 MG PO ×2 (14:12→20:12)
[2024-01-17] MEDS: lisinopriL 10 MG TABLET PO (20:11)
[2024-01-18] VITALS (13 sets, daily range): BP systolic 101–147; BP diastolic 67–88; PULSE 50–91; RESP 16–18; TEMP 36.3–36.8; O2SAT 95–97
[2024-01-18 04:49] LABS: BUN Creatinine Ratio 43.8 (6-22); Blood Urea Nitrogen 21 mg/dL (7-17); Calcium 10.6 mg/dL (8.4-10.2); Carbon Dioxide 26 mmol/L (22-32); Chloride 105 mmol/L (98-107); Estimated Glomerular Filt Rate > 60 mL/min (>60); Glucose 120 mg/dL (80-110); HEMOLYSIS < 15 (0-50); Magnesium 1.8 mg/dL (1.6-2.3); Potassium 4.1 mmol/L (3.4-5.1); Sodium 137 mmol/L (137-145)
[2024-01-18] MEDS: LEVOTHYROXINE 75 MCG TABLET PO (05:56)
[2024-01-18] MEDS: METOPROLOL IR 25 MG TABLET 12.5 MG PO ×3 (05:56→17:26)
[2024-01-18] MEDS: PANTOPRAZOLE DR 20 MG TABLET PO (05:56)
[2024-01-18] MEDS: dilTIAZem CD 180 MG CAP PO (08:34)
[2024-01-18] MEDS: LORATADINE 10 MG TABLET PO (08:34)
[2024-01-18] MEDS: METFORMIN HCL 500 MG TABLET PO ×2 (08:34→20:55)
[2024-01-18] MEDS: FENOFIBRATE, MICRONIZED 67 MG CAPSULE 201 MG PO (08:34)
[2024-01-18] MEDS: RIVAROXABAN 10 MG TABLET 20 MG PO (08:34)
[2024-01-18] MEDS: FLECAINIDE 100 MG TABLET 50 MG PO ×2 (08:35→20:55)
--- NOTE | 2024-01-18 08:54 | PM.PN.1 ---
Subjective Subjective Interval history: Summary: 68-year-old female with hypothyroidism, hypertension, diabetes mellitus type 2, and dyslipidemia diagnosed with paroxysmal atrial fibrillation on December 05. He was incidentally found when she was evaluated preoperatively for elective cholecystectomy. She was initiated on metoprolol and Xarelto. She would become bradycardic and metoprolol was decreased from 50 mg a day to 25 mg. She presented to the hospital December 19 in atrial fibrillation with rapid ventricular response. Echocardiogram was performed which revealed a preserved ejection fraction and no valvular abnormalities. She had a mildly low magnesium level which was repleted. She was placed on a diltiazem drip and ultimately transitioned to oral diltiazem 240 mg daily and metoprolol 25 mg twice daily. She was seen by Cardiology on December 23 and was found to have sinus bradycardia with a heart rate of 52 on EKG. Cardiology recommended a stress test which if low risk she would be placed on flecainide 50 mg twice daily. He reduced her metoprolol from 25 mg twice daily to once daily to avoid bradycardia. He also restarted lisinopril 10 mg daily. He additionally recommended a sleep study. Stress test was done January 04 which was negative for ischemia and infarction. S: No chest pain or palpitations. She was on flecainide, converted to sinus rhythm this morning at 6:00. Exam Vital Signs (past 8 hours): - 01/18/24 03:53 01/18/24 03:53 01/18/24 03:54 Temperature Pulse Rate 82 91 H Respiratory Rate Blood Pressure 112/74 Pulse Oximetry 96 95 Oxygen Flow Rate 01/18/24 04:00 01/18/24 05:56 01/18/24 07:45 Temperature 98.2 F Pulse Rate 70 51 L Respiratory Rate 16 Blood Pressure 112/74 101/71 Pulse Oximetry 95 96 Oxygen Flow Rate 0 01/18/24 07:45 Temperature 97.6 F Pulse Rate Respiratory Rate 17 Blood Pressure 112/68 Pulse Oximetry Oxygen Flow Rate Oxygen Delivery Method Room Air Oxygen Flow Rate 0 Narrative Exam Narrative: NAD, alert and oriented. Fluent speech. Anxious. Lungs are clear, normal rate and effort. Heart is regular, no murmur gallop or rub. Abdomen is soft, non distended. Extremities are free of edema. Objective ECG Impression: Atrial fibrillation with rapid ventricular response Marked ST abnormality, possible inferolateral subendocardial injury Labs 11/24/24 04:30 01/18/24 03:50 Labs: Laboratory Results - last 24 hr 01/17/24 01/18/24 04:30 03:50 Sodium 137 Potassium 4.1 Chloride 105 Carbon Dioxide 26 BUN 21 H Creatinine 0.48 L Estimated GFR > 60 BUN/Creatinine Ratio 43.8 H Glucose 120 H Calcium 10.6 H Magnesium 1.8 TSH 2.63 PFSH Medical History Paroxysmal atrial fibrillation Dyslipidemia Osteoporosis Colon cancer screening declined (11/2019) Allergies Knee pain Intrauterine pessary (~2018) Vitamin D deficiency (07/2019) Screening for malignant neoplasm of colon (02/2021) Type 2 diabetes mellitus (07/2019) Essential hypertension (1989) Acquired hypothyroidism Surgical History H/O: hysterectomy Anesthesia Status post bunionectomy Status post breast biopsy Status post endometrial ablation Family History Father Diabetes mellitus Heart disease Pancreatitis Heart attack Hyperlipidemia Hypertension Grandfather Heart disease Cancer Grandmother Heart disease Mother Heart disease Hypertension Hyperlipidemia Grandmother Heart disease Hypertension Sister Age: 64 Hypertension Brother Heart disease Brother Heart disease Brother Heart disease Social History household members: spouse Smoking Status: Former smoker alcohol intake: never eating out: 1-3 times/week Type(s) of exercise: walking Assessment & Plan Assessment & Plan narrative: 1. Atrial fibrillation with rapid ventricular response, resolved. As noted, patient has nonvalvular atrial fibrillation. She failed cardioversion in the emergency department. Stress test was negative and based on Dr. Patel's recommendations, she was to start flecainide. This will be initiated. Additionally, for now the Cardizem will be decreased from 240 mg daily to 180 mg daily. Will start metoprolol extended release 12.5 mg q.6 hours to attempt better rate control. Continue Xarelto. Will obtain a TSH as 1 has not been done since her diagnosis of AFib. 2. Hypertension, stable. Blood pressures are presently normotensive. Continue home dose of lisinopril. As noted, resume metoprolol and decrease diltiazem 3. Hyperlipidemia, stable. Continue fenofibrate 4. Hypothyroidism, stable. Continue levothyroxine. I have requested a TSH with reflex T4 5. Diabetes mellitus type 2, stable. Last A1c was 5.9%. Continue usual home regimen. 6. Gallbladder disease, stable. Follow-up with her surgeon once her cardiac issues have been resolved Code status Full Prophylaxis On Xarelto Disposition Possibly home later today. Time-Based Coding :: [TOTAL MINUTES] spent with patient and on the chart (including review of chart, obtaining history, exam, reviewing outside data, placing orders, documenting exam and treatment plan, and counseling patient) on [DATE]. Quality VTE Deep Vein Thrombosis/Pulmonary Embolism Present on Admission: No
--- NOTE | 2024-01-18 10:12 | CM.DPNOTE ---
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 Per hospitalist in morning rounds, anticipate dc later today. per provider/RN report, no new CM needs identified or liekly. Plan: No barriers identified at this time to patient's safe discharge home w/family to assist; close outpatient f/u recommended. CM team will plan to follow clinical course closely in case any DC needs or concerns arise. MARIALUISA Schneider
[2024-01-18] MEDS: lisinopriL 10 MG TABLET PO (20:56)
[2024-01-19] VITALS: BP 147/77; PULSE 50; RESP 16; TEMP 36.1; O2SAT 97
[2024-01-19 03:23] VITALS: PULSE 50; O2SAT 97
[2024-01-19 03:24] VITALS: BP 124/69; PULSE 50; O2SAT 96
[2024-01-19 04:00] VITALS: BP 124/69; PULSE 50; RESP 16; TEMP 36.1; O2SAT 97
[2024-01-19] MEDS: PANTOPRAZOLE DR 20 MG TABLET PO (05:49)
[2024-01-19] MEDS: LEVOTHYROXINE 75 MCG TABLET PO (05:49)
--- NOTE | 2024-01-19 06:36 | PC.NURSE ---
metoprolol 12.5mg po was held at midnight and again at 0600 for HR-40s; pt remains sinus cammy on monitor; she denies any complaints of chest pain or SOB; poss discharge home today
[2024-01-19 07:54] VITALS: BP 133/63; PULSE 47; RESP 17; TEMP 36.6; O2SAT 96
[2024-01-19] MEDS: LORATADINE 10 MG TABLET PO (09:45)
[2024-01-19] MEDS: FLECAINIDE 100 MG TABLET 50 MG PO (09:46)
[2024-01-19] MEDS: FENOFIBRATE, MICRONIZED 67 MG CAPSULE 201 MG PO (09:46)
[2024-01-19] MEDS: METFORMIN HCL 500 MG TABLET PO (09:46)
[2024-01-19] MEDS: RIVAROXABAN 10 MG TABLET 20 MG PO (09:46)
--- NOTE | 2024-01-19 10:35 | PM.DS.1 ---
History of Present Illness History of Present Illness Chief complaint: Atrial fibrillation Narrative: From H&P: This patient is a 68 year old female with diabetes mellitus type II, hypertension, hyperlipidemia, hypothyroidism and atrial fibrillation who presented to the ER for lightheadedness and palpitations. She reports mild symptoms without any alleviating or exacerbating factors and denies any prior episodes. She reports compliance with all of her medications including Metoprolol succinate 25 mg daily in the morning, Diltiazem ER 240 mg daily in the evening, and Xarelto 20 mg daily. She reports that she had bradycardia noted one month ago by one of her physicians who decreased her Metoprolol succinate from 50 mg daily to 25 mg daily. In the ER, temperature was 98.1, pulse 128, respirations 19, blood pressure 112/84 and O2 saturation 94% on room air. WBC was 9.0, Hb 15.1, Hct 44.7, Plt 259, sodium 141, potassium 3.6, Cl 104, CO2 26, BUN 25, creatinine 0.48, glucose 160, CK 70, troponin < 0.012. EKG showed atrial fibrillation with RVR [address] abnormalities concerning for inferolateral subendocardial injury. Cardioversion was attempted three times unsuccessfully per the ER physician and cardiology then recommended Amiodarone drip. She is admitted for further medical management and monitoring. Discharge Providers Provider Date of admission: 01/17/24 01:42 Discharge Date: 01/19/24 Primary care physician: FABIANA Monzon Consults: 01/17/24 01:51 Consult to Discharge Planning Routine Comment: Discharge provider: Jean Paul Bennett MD Summary Hospital Course Discharge Diagnosis: 1. Atrial fibrillation with rapid ventricular response, resolved. 2. Hypertension, stable. 3. Hyperlipidemia, stable. 4. Hypothyroidism, stable. 5. Diabetes mellitus type 2, stable. 6. Gallbladder disease, stable. Status at Discharge Cognitive/behavioral status at discharge: oriented Functional status at discharge: independent ambulation Overall status at discharge: patient is back to baseline Time Spent with Patient Time spent: Greater than 30 minutes Exam Vital Signs (past 8 hours): - 01/19/24 04:00 Temperature 96.9 F L Pulse Rate 50 L Respiratory Rate 16 Blood Pressure 124/69 Pulse Oximetry 97 Oxygen Flow Rate 0 Oxygen Delivery Method Room Air Oxygen Flow Rate 0 Narrative Exam Narrative: NAD, alert and oriented. Fluent speech. Lungs are clear, normal rate and effort. Heart is regular, no murmur gallop or rub. Abdomen is soft, non distended. Extremities are free of edema. Objective ECG Impression: Atrial fibrillation with rapid ventricular response Marked ST abnormality, possible inferolateral subendocardial injury Imaging Recent imaging:: Radiologist's impression: Chest CT 01/10: No mass or significant pulmonary nodules. Liver MRI 01/06: Hepatic background steatosis and hepatomegaly. Hypervascular lesion confirmed in segment 6, imaging most compatible with hemangioma. Cholelithiasis. Borderline dilated CBD. Correlate LFTs. Myocardial perfusion scan: 1. Negative exercise myocardial perfusion scan for ischemia and infarction. 2. Short RP tachycardia resolved with Valsalva maneuver. Labs 01/17/24 04:30 01/18/24 03:50 PFSH Medical History Paroxysmal atrial fibrillation Dyslipidemia Osteoporosis Colon cancer screening declined (11/2019) Allergies Knee pain Intrauterine pessary () Vitamin D deficiency (07/2019) Screening for malignant neoplasm of colon (02/2021) Type 2 diabetes mellitus (07/2019) Essential hypertension (1989) Acquired hypothyroidism Surgical History H/O: hysterectomy Anesthesia Status post bunionectomy Status post breast biopsy Status post endometrial ablation Family History Father Diabetes mellitus Heart disease Pancreatitis Heart attack Hyperlipidemia Hypertension Grandfather Heart disease Cancer Grandmother Heart disease Mother Heart disease Hypertension Hyperlipidemia Grandmother Heart disease Hypertension Sister Age: 64 Hypertension Brother Heart disease Brother Heart disease Brother Heart disease Social History household members: spouse Smoking Status: Former smoker alcohol intake: never eating out: 1-3 times/week Type(s) of exercise: walking Comment: She was admitted with recurrent atrial fibrillation with RVR. Three cardioversions failed in the ED. She was discussed with Cardiology who recommended flecainide at 50 b.i.d.. Initially, diltiazem drip was used for rate control and she was transitioned to oral diltiazem and metoprolol. On the day of discharge she was doing well, she was discussed briefly with Dr. Ortiz of Cardiology at [facility]. She will see him on Thursday in the scheduled appointment and he recommends continuation of flecainide as well as very low-dose Toprol at 12.5 daily given her bradycardia. Discharge Assessment & Plan Assessment and Plan Assessment: 1. Atrial fibrillation with rapid ventricular response, resolved. 2. Hypertension, stable. 3. Hyperlipidemia, stable. 4. Hypothyroidism, stable. 5. Diabetes mellitus type 2, stable. 6. Gallbladder disease, stable. Plan of Treatment: Discharge home. Case discussed with Dr. Ortiz of Cardiology at [facility]. She was an appointment with him on Thursday. She will continue flecainide b.i.d. and metoprolol XL at 12.5 q.a.m.. Discharge Plan Discharge Plan Patient Disposition: Home Provider Discharge Comment: Stable for discharge home, on flecainide. She has a video follow up with Cardiology this afternoon. Discharge orders & Medications Prescriptions: New flecainide 100 mg Tablet 50 mg PO BID Qty: 60 1RF metoprolol succinate 25 mg tablet extended release 24 hr 12.5 mg PO DAILY Qty: 30 0RF Continued fenofibrate 160 mg tablet 160 mg PO DAILY Qty: 90 3RF levothyroxine 75 mcg tablet 75 mcg PO DAILY Qty: 90 2RF loratadine [Allergy Relief (loratadine)] 10 mg tablet 10 mg PO DAILY acetaminophen 325 mg tablet 650 mg PO Q4-6H PRN (Reason: pain) lisinopril 10 mg tablet 10 mg PO DAILY metformin 500 mg tablet 500 mg PO BID Xarelto 20 mg tablet 20 mg PO DAILY Discontinued metoprolol succinate 25 mg tablet extended release 24 hr 25 mg PO .QD diltiazem HCl 120 mg Capsule,Extended Release 24hr 240 mg PO 2000 Qty: 30 0RF Follow up/Referrals: Mando Puente ARNP [Primary Care Provider] - Diet/Activity/Treatments Diet: Regular Activity: As tolerated. Visit Report/Discharge Packet Instructions: DI for Atrial Fibrillation, Flecainide Stand Alone Forms: Patient Portal/API, Stroke Signs & Symptoms Discharge Data Primary Care Provider: Mando Puente Attending Provider: Allie Richter Admit Date/Time: 01/17/24 01:42 Quality VTE Deep Vein Thrombosis/Pulmonary Embolism Present on Admission: No
--- NOTE | 2024-01-19 10:48 | CM.DPNOTE ---
DCP Note APPLICATION SUPPORT DEVELOPER reviewed EMR Per chart review/hospitalist in morning rounds, anticipate dc home today. Plan: No barriers identified at this time to patient's safe discharge home w/family to assist; close outpatient f/u recommended. CM team will plan to follow in case any DC needs or concerns arise. MARIALUISA Schneider
== END 2024-01-19 14:20 | disposition home or self-care (01) ==
LOC: ED 01-17 01:15 → AC 01-17 01:43 → ICU 01-17 02:22
PROVIDERS: Family Medicine; Admitting Provider Internal Medicine; Emergency Provider Emergency Medicine; PCP Registered Nurse Diabetes Educator; Visit Provider Internal Medicine
DX: I48.0 Paroxysmal atrial fibrillation (principal); E11.9 Type 2 diabetes mellitus without complications; I10 Essential (primary) hypertension; E78.5 Hyperlipidemia, unspecified; E03.9 Hypothyroidism, unspecified; Z79.84 Long term (current) use of oral hypoglycemic drugs; K82.9 Disease of gallbladder, unspecified
CPT/HCPCS: 36415; 80048; 80053; 82550; 82962; 83735; 83880; 84443; 84484; 85025; 92960; 93005; 96365; 96366; 96375; 99152; 99285; 99291; G0378; J0282; J2060; J2704

== ENCOUNTER 2024-04-17 11:37 | Inpatient (IN) | payer MEDICARE, SELFPAY ==
[2024-01-17 01:52] VITALS: BMI 28.8
[2024-04-17] VITALS (12 sets, daily range): BP systolic 125–153; BP diastolic 75–94; PULSE 88–138; RESP 11–24; TEMP 36.6–37.4; O2SAT 94–98; BMI 27.4; BMI 27.7
--- NOTE | 2024-04-17 12:08 | EKG_ITS ---
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
[2024-04-17 12:38] LABS: Add Manual Diff / Slide Review NO; Basophils Absolute Auto 0 /uL (0-100); Basophils Percent Auto 0.3 % (0-2); Eosinophils Absolute Auto 0 /uL (0-450); Eosinophils Percent Auto 0.4 % (2-4); Hematocrit 39.1 % (36-46); Hemoglobin 13.5 g/dL (12.0-16.0); Lymphocytes Absolute Auto 1000 /uL (1100-4500); Lymphocytes Percent Auto 9.6 % (25-40); Mean Corpuscular HGB Conc 34.6 % (30-36); Mean Corpuscular Hemoglobin 28.9 PG (26-34); Mean Corpuscular Volume 83.7 fL (80-100); Monocytes Absolute Auto 300 /uL (0-900); Monocytes Percent Auto 2.9 % (3-14); Neutrophils Absolute Auto 9000 /uL (1500-7000); Neutrophils Percent Auto 86.8 % (50-75); Platelet Count 251 X10^3/uL (150-400); Red Blood Cell Count 4.67 X10^6/uL (4.0-5.2); Red Cell Distribution Width 13.4 % (11.6-14.8); White Blood Cell Count 10.4 X10^3/uL (4.5-11.0)
[2024-04-17 12:45] LABS: Bilirubin Urine UA NEGATIVE (NEGATIVE); Color Urine UA YELLOW; Glucose Urine UA 1+ g/dL (Negative); Ketones Urine UA 1+ (NEGATIVE); Leukocyte Esterase Urine UA 1+ (NEGATIVE); Nitrite Urine UA NEGATIVE (Negative); Occult Blood Urine UA 1+ (Negative); Protein Urine UA TRACE (Negative); Specific Gravity Urine UA 1.015 (1.000-1.035); Urobilinogen Urine UA 0.2 E.U./dL (0.2)
[2024-04-17 12:48] LABS: Alanine Aminotransferase 47 IU/L (<35); Albumin 5.1 g/dL (3.5-5.0); Albumin Globulin Ratio 1.3 (1.0-2.8); Alkaline Phosphatase 97 U/L (38-126); Appearance Urine UA CLOUDY; Aspartate Aminotransferase 39 IU/L (14-36); BUN Creatinine Ratio 44.2 (6-22); Bilirubin Total 0.4 mg/dL (0.2-1.3); Blood Urea Nitrogen 19 mg/dL (7-17); Calcium 9.9 mg/dL (8.4-10.2); Carbon Dioxide 25 mmol/L (22-32); Chloride 100 mmol/L (98-107); Estimated Glomerular Filt Rate > 60 mL/min (>60); Glucose 201 mg/dL (80-110); HEMOLYSIS < 15 (0-50); Lipase 115 U/L (23-300); Potassium 3.6 mmol/L (3.4-5.1); Sodium 138 mmol/L (137-145); Total Protein 9.1 g/dL (6.3-8.2); pH Urine UA 7.5 (4.5-8.0)
[2024-04-17 12:52] LABS: Amorphous Sediment Urine 3+; Bacteria Urine Many (>30); Culture Indicated Urine Specimen Cultured; Mucus Urine 1+ (Negative); RBC Urine 1-5/HPF (0-5/HPF); Squamous Epithelial Cell Urine None Seen (0-5/HPF); Urine Volume 10mL (spun); WBC Urine 1-5/HPF (0-5/HPF)
--- NOTE | 2024-04-17 13:53 | DI.US.S_ITS ---
PROCEDURE: US ABDOMEN LIMITED INDICATIONS: ruq abdominal pain, cholecystitis suspected TECHNIQUE: Real-time focused scanning was performed of the abdomen, with image documentation. COMPARISON: [facility], MR, MR ABDOMEN LIVER PROTOCOL, 01/07/2024, 12:45. [facility], US, US ABDOMEN LIMITED, 11/22/2023, 19:38. FINDINGS: The liver demonstrates enlarged size. The liver demonstrates generalized moderately increased echogenicity. This decreases ultrasound sensitivity for detection of hepatic masses. The gallbladder is enlarged. There is a 1.9 cm stone seen lodged within the gallbladder neck. The gallbladder wall is not thickened, measuring 3 mm or less. No specific pericholecystic fluid is seen. The sonographic Muse sign is positive. The common bile duct measures 11 mm. No significant pancreatic abnormality is seen on these images. IMPRESSION: Suspicion for cholecystitis, with an enlarged gallbladder with a 1.9 cm stone lodged within the gallbladder neck. The sonographic Muse sign is positive. No additional sonographic signs of cholecystitis are seen. The common bile duct is enlarged at 11 mm, previously measuring 8 mm on MRI. Enlarged, fatty infiltrated liver. Dictated by: Chente Holland M.D. on 04/17/2024 at 14:02 Approved by: Chente Holland M.D. on 04/17/2024 at 14:04
--- NOTE | 2024-04-17 13:56 | ED.ABDPAIN ---
HPI - Abdominal Pain General Chief Complaint: Abdominal Pain Stated Complaint: thinks having a galbladder attack, vomiting, backp Time Seen by Provider: 04/17/24 13:45 Source: patient Mode of arrival: Wheelchair History of Present Illness HPI narrative: This is a 48-year-old female with known gallstone disease and paroxysmal atrial fibrillation on flecainide metoprolol and Xarelto. She has had abdominal pain in the right upper quadrant since early this morning. She has also had nausea and vomiting. She has not had fevers. She is not having chest pain. Has not taken her medications this morning, last took Eliquis yesterday morning. Last oral intake was about 10:00 a.m.. Related Data Home Medications Medication Instructions Recorded Confirmed loratadine 10 mg tablet (Allergy 10 mg PO DAILY 03/20/23 03/16/24 Relief (loratadine)) acetaminophen 325 mg tablet 650 mg PO Q4-6H PRN pain 04/30/23 03/16/24 rivaroxaban 20 mg tablet (Xarelto) 20 mg PO DAILY 12/20/23 03/16/24 Previous Rx's Medication Instructions Recorded flecainide 100 mg tablet 50 mg (1/2 x 100 mg) PO BID #60 01/19/24 tabs metoprolol succinate 25 mg 12.5 mg (1/2 x 25 mg) PO DAILY #30 01/19/24 tablet,extended release 24 hr tabs fenofibrate 160 mg tablet 160 mg PO DAILY #90 tabs 03/18/24 levothyroxine 75 mcg tablet 75 mcg PO DAILY #90 tabs 03/18/24 lisinopril 10 mg tablet 10 mg PO BID #180 tabs 03/18/24 metformin 500 mg tablet 500 mg PO BID #180 tabs 03/21/24 Allergies Allergy/AdvReac Type Severity Reaction Status Date / Time azithromycin Allergy Mild Rash Verified 04/17/24 12:02 Patient History Medical History Paroxysmal atrial fibrillation Dyslipidemia Osteoporosis Colon cancer screening declined (11/2019) Allergies Knee pain Intrauterine pessary (~2018) Vitamin D deficiency (07/2019) Screening for malignant neoplasm of colon (02/2021) Type 2 diabetes mellitus (07/2019) Essential hypertension (1989) Acquired hypothyroidism Surgical History H/O: hysterectomy Anesthesia Status post bunionectomy Status post breast biopsy Status post endometrial ablation Family History Father Diabetes mellitus Heart disease Pancreatitis Heart attack Hyperlipidemia Hypertension Grandfather Heart disease Cancer Grandmother Heart disease Mother Heart disease Hypertension Hyperlipidemia Grandmother Heart disease Hypertension Sister Age: 64 Hypertension Brother Heart disease Brother Heart disease Brother Heart disease Social History household members: spouse Smoking Status: Former smoker alcohol intake: never eating out: 1-3 times/week Type(s) of exercise: walking Smoking Status: Former smoker tobacco type: cigarettes alcohol intake frequency: other Exam Narrative Exam Narrative: Alert and appears uncomfortable but not toxic tachycardia noted, this is atrial fibrillation with rapid ventricular response Initial Vital Signs Initial Vital Signs: Vital Signs Temperature 99.3 F 04/17/24 12:02 Pulse Rate 137 H 04/17/24 12:02 Respiratory Rate 16 04/17/24 12:02 Blood Pressure 153/81 H 04/17/24 12:02 Pulse Oximetry 97 04/17/24 12:02 Oxygen Delivery Method Room Air 04/17/24 12:02 Chest Other: Irregularly irregular tachycardic no murmur or gallop Resp Other: Lungs are clear GI Other: Normal bowel sounds soft, tender in the right upper quadrant with guarding Skin Other: Warm and dry Neuro Other: Alert and without focal deficit Course Orders Ordered: ED Orders 04/17/24 12:08 EKG-12 Lead Stat 04/17/24 12:25 Complete Blood Count AUTO DIFF Stat Comprehensive Metabolic Panel Stat Lipase Stat Urinalysis and Microscopic Stat Urine Culture Stat 04/17/24 13:53 US abdomen limited Stat Flecainide Acetate (Flecainide 100 Mg Tablet) 50 mg PO BID SD Ondansetron HCl (Ondansetron 4 Mg/2 Ml Inj) 4 mg IV NOW PRN PRN Reason: Nausea And Vomiting Last Admin: 04/17/24 14:08 Dose: 4 mg Documented By: SB Ondansetron HCl (Ondansetron 4 Mg Odt) 4 mg PO NOW PRN PRN Reason: Nausea And Vomiting Discontinued Medications Hydromorphone HCl (Hydromorphone 1 Mg Inj) 1 mg IV NOW ONE Stop: 04/17/24 13:54 Last Admin: 04/17/24 14:06 Dose: 1 mg Documented By: PRASAD Sodium Chloride (Normal Saline 0.9%) 1,000 mls @ 1,000 mls/hr IV BOLUS ONE Stop: 04/17/24 14:59 Last Infusion: 04/17/24 15:17 Dose: Infused Documented By: Admin: 04/17/24 14:06 Dose: 1,000 mls/hr Documented By: SB Metoprolol Tartrate (Metoprolol Tartrate 5 Mg/5 Ml Inj) 5 mg IV Q5M SD Stop: 04/17/24 14:11 Last Admin: 04/17/24 14:23 Dose: 5 mg Documented By: Admin: 04/17/24 14:17 Dose: 5 mg Documented By: Admin: 04/17/24 14:09 Dose: 5 mg Documented By: PRASAD Metoprolol Tartrate (Metoprolol Ir 25 Mg Tablet) 12.5 mg PO NOW ONE Stop: 04/17/24 14:32 Last Admin: 04/17/24 15:17 Dose: 12.5 mg Documented By: SHANTI Reevaluation(s) Reevaluation #1: At 3:30 p.m., pain is improved, she still has right upper quadrant tenderness. Ultrasound results noted, patient is agreeable to admission and general surgery consult Consultations Consultation #1: Discussed with general surgery, Dr. Escalante, ask that the patient be admitted to Medicine and he will consult anticipate surgery after DOAC washout Consultation #2: Discussed with hospitalist, Dr Alanis, accepts admission, asks that we start abx, will address rate control Vital Signs Vital signs: Vital Signs - 8 hr 04/17/24 12:02 04/17/24 13:57 04/17/24 14:00 Temperature 99.3 F Pulse Rate 137 H 136 H Respiratory Rate 16 21 Blood Pressure 153/81 H 146/86 H 144/79 H Pulse Oximetry 97 94 Oxygen Delivery Method Room Air 04/17/24 14:00 04/17/24 14:16 04/17/24 14:21 Temperature Pulse Rate 138 H 135 H 129 H Respiratory Rate 18 13 11 L Blood Pressure 144/79 H 143/88 H 136/83 Pulse Oximetry 96 97 95 Oxygen Delivery Method Room Air 04/17/24 14:30 Temperature Pulse Rate 121 H Respiratory Rate 12 Blood Pressure 130/87 Pulse Oximetry 95 Oxygen Delivery Method MDM - Abdominal Pain Lab Data Lab results narrative: Normal white count, no elevation in bilirubin, normal lipase, urinalysis shows bacteria without pyuria 04/17/24 12:25 04/17/24 12:25 Labs: Lab Results 04/17/24 Range/Units 12:25 WBC 10.4 (4.5-11.0) X10^3/uL RBC 4.67 (4.0-5.2) X10^6/uL Hgb 13.5 (12.0-16.0) g/dL Hct 39.1 (36-46) % MCV 83.7 (80-100) fL MCH 28.9 (26-34) PG MCHC 34.6 (30-36) % RDW 13.4 (11.6-14.8) % Plt Count 251 (150-400) X10^3/uL Neut % (Auto) 86.8 H (50-75) % Lymph % (Auto) 9.6 L (25-40) % [place] % (Auto) 2.9 L (3-14) % Eos % (Auto) 0.4 L (2-4) % Baso % (Auto) 0.3 (0-2) % Neut # (Auto) 9000 H (2431-6154) /uL Lymph # (Auto) 1000 L (6893-7311) /uL [place] # (Auto) 300 (0-900) /uL Eos # (Auto) 0 (0-450) /uL Baso # (Auto) 0 (0-100) /uL Sodium 138 (137-145) mmol/L Potassium 3.6 (3.4-5.1) mmol/L Chloride 100 (98-107) mmol/L Carbon Dioxide 25 (22-32) mmol/L BUN 19 H (7-17) mg/dL Creatinine 0.43 L (0.52-1.04) mg/dL Estimated GFR > 60 (>60) mL/min BUN/Creatinine Ratio 44.2 H (6-22) Glucose 201 H (80-110) mg/dL Calcium 9.9 (8.4-10.2) mg/dL Total Bilirubin 0.4 (0.2-1.3) mg/dL AST 39 H (14-36) IU/L ALT 47 H (<35) IU/L Alkaline Phosphatase 97 (38-126) U/L Total Protein 9.1 H (6.3-8.2) g/dL Albumin 5.1 H (3.5-5.0) g/dL Globulin 4.0 (1.7-4.1) g/dL Albumin/Globulin Ratio 1.3 (1.0-2.8) Lipase 115 (23-300) U/L Urine Color Yellow Urine Appearance Cloudy Urine pH 7.5 (4.5-8.0) Ur Specific [place] 1.015 (1.000-1.035) Urine Protein Trace H (Negative) Urine Glucose (UA) 1+ H (Negative) g/dL Urine Ketones 1+ H (NEGATIVE) Urine Occult Blood 1+ H (Negative) Urine Nitrate Negative (Negative) Urine Bilirubin Negative (NEGATIVE) Urine Urobilinogen 0.2 (0.2) E.U./dL Ur Leukocyte Esterase 1+ H (NEGATIVE) Urine RBC 1-5/hpf (0-5/HPF) Urine WBC 1-5/hpf (0-5/HPF) Ur Squamous Epith Cells None seen (0-5/HPF) Amorphous Sediment 3+ Urine Bacteria Many (>30) H (None) Urine Mucus 1+ H (Negative) Ur Culture Indicated? Specimen cultured Vol Urine Centrifuged 10ml (spun) Imaging Data US - abdomen: Radiologist's Impression: [address] [address] Ultrasound Report Signed Patient: Ita Perla MR#: [id number] : 1955 Acct:[id number] Age/Sex: 68 / F Date of Service: 04/17/24 Loc: ED Accession Number: [id number] Procedure: US abdomen limited Ordering Provider: Evens Crawford MD PROCEDURE: US ABDOMEN LIMITED INDICATIONS: ruq abdominal pain, cholecystitis suspected TECHNIQUE: Real-time focused scanning was performed of the abdomen, with image documentation. COMPARISON: [facility], MR, MR ABDOMEN LIVER PROTOCOL, 01/07/2024, 12:45. [facility], US, US ABDOMEN LIMITED, 11/22/2023, 19:38. FINDINGS: The liver demonstrates enlarged size. The liver demonstrates generalized moderately increased echogenicity. This decreases ultrasound sensitivity for detection of hepatic masses. The gallbladder is enlarged. There is a 1.9 cm stone seen lodged within the gallbladder neck. The gallbladder wall is not thickened, measuring 3 mm or less. No specific pericholecystic fluid is seen. The sonographic Muse sign is positive. The common bile duct measures 11 mm. No significant pancreatic abnormality is seen on these images. IMPRESSION: Suspicion for cholecystitis, with an enlarged gallbladder with a 1.9 cm stone lodged within the gallbladder neck. The sonographic Muse sign is positive. No additional sonographic signs of cholecystitis are seen. The common bile duct is enlarged at 11 mm, previously measuring 8 mm on MRI. Enlarged, fatty infiltrated liver. Dictated by: Chente Holland M.D. on 04/17/2024 at 14:02 Approved by: Chente Holland M.D. on 04/17/2024 at 14:04 MDM Narrative Medical decision making narrative: 68-year-old female with known gallstone today's presenting with a right upper quadrant pain. Exam is consistent with acute cholecystitis. Her bilirubin and lipase are normal, I do not think that this is pancreatitis. I no urinary bacteria but she does not have urinary symptoms and has clear right upper quadrant tenderness with impacted gallstone seen in the gallbladder. Additionally, she has atrial fibrillation with rapid ventricular response. She is known to have paroxysmal atrial fibrillation. I have attempted rate control with metoprolol at this point it has not been fully successful although her rate is reasonable. Other measures include IV fluids and pain control. Oral anticoagulation will need to be held in anticipation of surgery, fortunately she did not take her oral anticoagulant today. Patient will be admitted to the hospitalist service, I am starting ceftriaxone and metronidazole at the request of the hospitalist. Surgery will consult. I will defer further rate control and anticoagulation to the hospitalist Discharge Plan Departure Patient Disposition: Admitted As Inpatient Clinical Impression: Acute cholecystitis, Atrial fibrillation with rapid ventricular response Admit Date/Time: 04/17/24 15:43 Admit Provider: Elenita Alanis
[2024-04-17] MEDS: SODIUM CHLORIDE 0.9% 1,000 ML 1000 ML IV (14:06)
[2024-04-17] MEDS: HYDROMORPHONE 1 MG INJ IV (14:06)
[2024-04-17] MEDS: ONDANSETRON 4 MG/2 ML INJ IV ×2 (14:08→17:39)
[2024-04-17] MEDS: METOPROLOL TARTRATE 5 MG/5 ML INJ IV ×3 (14:09→14:23)
[2024-04-17] MEDS: METOPROLOL IR 25 MG TABLET 12.5 MG PO (15:17)
[2024-04-17] MEDS: cefTRIAXone 2,000 MG in SODIUM CHLORIDE 0.9% 100 ML 200 MG IV (16:03)
--- NOTE | 2024-04-17 16:11 | P.HP_ITS ---
History of Present Illness History of Present Illness Chief complaint: RUQ pain vomiting Narrative: 68-year-old female with hypothyroidism, hypertension, diabetes mellitus type 2, dyslipidemia, and paroxysmal atrial fibrillation originally diagnosed December 06, 2023. The atrial fibrillation was incidentally found during a preop for an elective cholecystectomy. She was initially placed on metoprolol and Xarelto. She developed bradycardia from the metoprolol and her dose was reduced. She was admitted to the hospital December 19 with AFib with RVR. Echocardiogram revealed preserved ejection fraction with no valvular abnormalities. She was placed on oral diltiazem 240 mg daily and metoprolol 25 mg twice daily. She was evaluated by Cardiology December 23 and was found to have sinus bradycardia. A stress test was recommended. If it was found to be low risk, flecainide 50 mg twice daily was recommended. Additionally metoprolol was reduced from 25 mg twice daily to once daily. Her stress test was performed on January 04 and was negative for ischemia. She ended up admitted again to the hospital on January 16 in AFib with RVR. She was initiated on flecainide. She discharged on flecainide 50 mg twice daily as well as metoprolol extended release 12.5 mg daily. She saw cardiology on January 21 and no changes to her medication regimen were made. She had not had any additional bouts of AFib with RVR. She more recently saw Cardiology on April [address] Paula izquierdo that she wanted to pursue an ablation. Due to recurrent issues with paroxysmal atrial fibrillation, she has not proceeded with the cholecystectomy. She presented to the emergency department this morning with nausea, vomiting, and right upper quadrant pain. She reports it began around 330 this morning. She continued to vomit until she was dry heaving late morning. She has not had any fevers or chest pain. She took Xarelto yesterday but did not have any of her medications today. Her last oral intake was around 10:00 a.m. this morning. On arrival to the emergency department, heart rate was 136, respiratory rate 21, BP 146/86, O2 sats 94% on room air. Labs revealed a white blood cell count of 10.4, hemoglobin 13.5, hematocrit 39.1, platelets 251. 86.8% neutrophils. Chemistry panel revealed normal electrolytes, BUN 19, creatinine 0.43, glucose 201. AST was elevated at 39, ALT 47, alk-phos 97, total bilirubin 0.4. Albumin was 5.1, total protein 9.1. Lipase 115. UA was done which revealed trace protein 1+ glucose 1+ ketones, 1+ occult blood, 1+ leukocyte esterase and many bacteria. Abdominal ultrasound revealed an enlarged liver with generalized moderately increased echogenicity. Gallbladder was enlarged with a 1.9 cm stone lodged within the gallbladder neck. Gallbladder wall is not thickened measuring 3 mm or less. No pericholecystic fluid seen sonographic Muse sign was positive. CBD measured 11 mm up from 8 mm on previous MRI. Findings in total were felt to be suspicious for cholecystitis. On the prior ultrasound in October, the gallstone was mobile within the dependent portion of the gallbladder lumen. Urine is sent for culture. In the ED, patient received 12.5 mg of oral metoprolol, 3 doses of IV metoprolol, 1 L of normal saline, 1 mg of IV Dilaudid. Subsequently received 2 g of IV ceftriaxone. Additionally, 500 mg of metformin were ordered. Admission was recommended. She does report having eaten a fairly fatty meal yesterday inclusive of chicken skins. She also had quiche with chicken sausage earlier this weekend. [facility] Medical History Paroxysmal atrial fibrillation Dyslipidemia Osteoporosis Colon cancer screening declined (11/2019) Allergies Knee pain Intrauterine pessary (~2018) Vitamin D deficiency (07/2019) Screening for malignant neoplasm of colon (02/2021) Type 2 diabetes mellitus (07/2019) Essential hypertension (1989) Acquired hypothyroidism Surgical History H/O: hysterectomy Anesthesia Status post bunionectomy Status post breast biopsy Status post endometrial ablation Family History Father Diabetes mellitus Heart disease Pancreatitis Heart attack Hyperlipidemia Hypertension Grandfather Heart disease Cancer Grandmother Heart disease Mother Heart disease Hypertension Hyperlipidemia Grandmother Heart disease Hypertension Sister Age: 64 Hypertension Brother Heart disease Brother Heart disease Brother Heart disease Social History household members: spouse Smoking Status: Former smoker alcohol intake: never eating out: 1-3 times/week Type(s) of exercise: walking Meds Home Medications and Allergies Home Medications Medication Instructions Recorded Confirmed Type acetaminophen 325 mg tablet 650 mg PO Q4-6H PRN pain 04/30/23 04/17/24 History metoprolol succinate 25 mg 12.5 mg (1/2 x 25 mg) PO DAILY #30 01/19/24 04/17/24 Rx tablet,extended release 24 hr tabs fenofibrate 160 mg tablet 160 mg PO DAILY #90 tabs 03/18/24 04/17/24 Rx metformin 500 mg tablet 500 mg PO BID #180 tabs 03/21/24 04/17/24 Rx flecainide 100 mg tablet 50 mg PO BID 04/17/24 04/17/24 History levothyroxine 75 mcg tablet 75 mcg PO DAILY 04/17/24 04/17/24 History lisinopril 10 mg tablet 10 mg PO BID 04/17/24 04/17/24 History loratadine 10 mg tablet 10 mg PO DAILY 04/17/24 04/17/24 History rivaroxaban 20 mg tablet (Xarelto) 20 mg PO DAILY 04/17/24 04/17/24 History Allergies Allergy/AdvReac Type Severity Reaction Status Date / Time azithromycin Allergy Mild Rash Verified 04/17/24 12:02 Review of Systems Review of Systems Narrative: All other systems were reviewed negative Exam Vital Signs (past 8 hours): - 04/17/24 12:02 04/17/24 13:57 04/17/24 14:00 Temperature 99.3 F Pulse Rate 137 H 136 H Respiratory Rate 16 21 Blood Pressure 153/81 H 146/86 H 144/79 H Pulse Oximetry 97 94 Oxygen Delivery Method Room Air Oxygen Flow Rate 04/17/24 14:00 04/17/24 14:16 04/17/24 14:21 Temperature Pulse Rate 138 H 135 H 129 H Respiratory Rate 18 13 11 L Blood Pressure 144/79 H 143/88 H 136/83 Pulse Oximetry 96 97 95 Oxygen Delivery Method Room Air Oxygen Flow Rate 04/17/24 14:30 04/17/24 15:00 04/17/24 15:00 Temperature Pulse Rate 121 H 125 H Respiratory Rate 12 Blood Pressure 130/87 141/89 H Pulse Oximetry 95 95 Oxygen Delivery Method Nasal Cannula Oxygen Flow Rate 1 04/17/24 15:30 04/17/24 15:30 04/17/24 16:00 Temperature Pulse Rate 130 H 125 H Respiratory Rate 24 Blood Pressure 125/75 Pulse Oximetry 96 97 Oxygen Delivery Method Oxygen Flow Rate 04/17/24 16:01 04/17/24 16:01 Temperature Pulse Rate 128 H Respiratory Rate Blood Pressure 149/94 H Pulse Oximetry 98 Oxygen Delivery Method Oxygen Flow Rate Oxygen Delivery Method Nasal Cannula Oxygen Flow Rate 1 Narrative Exam Narrative: GEN: Middle-aged female, mildly ill-appearing, Alert and oriented x3, no acute distress HEENT: Normocephalic, face symmetric, pupils equal round reactive to light, extraocular movements intact, sclerae anicteric, conjunctiva clear, nares patent, oropharynx reveals an intact soft and hard palate with moist mucous membranes, dentition is fair NECK: Supple, no lymphadenopathy, thyroid without enlargement or nodularity, carotids no bruits CHEST: Respiratory excursions symmetric, clear to auscultation bilaterally CV: Mildly tachycardic, Irregularly irregular, no murmurs, rubs, gallops, PMI nondisplaced ABD: Soft, tender in the right upper quadrant,, nondistended, bowel sounds present in all 4 quadrants, no organomegaly or masses appreciated EXTR: Warm, well perfused, no clubbing/cyanosis/edema SKIN: Warm and dry, without rash NEURO: Alert and oriented x3, grossly intact PSYCH: Mood and affect is within normal limits, judgment and insight are appropriate Objective Labs 04/17/24 12:25 04/17/24 12:25 Labs: Laboratory Results - last 24 hr 04/17/24 12:25 WBC 10.4 RBC 4.67 Hgb 13.5 Hct 39.1 MCV 83.7 MCH 28.9 MCHC 34.6 RDW 13.4 Plt Count 251 Neut % (Auto) 86.8 H Lymph % (Auto) 9.6 L [place] % (Auto) 2.9 L Eos % (Auto) 0.4 L Baso % (Auto) 0.3 Neut # (Auto) 9000 H Lymph # (Auto) 1000 L [place] # (Auto) 300 Eos # (Auto) 0 Baso # (Auto) 0 Sodium 138 Potassium 3.6 Chloride 100 Carbon Dioxide 25 BUN 19 H Creatinine 0.43 L Estimated GFR > 60 BUN/Creatinine Ratio 44.2 H Glucose 201 H Calcium 9.9 Total Bilirubin 0.4 AST 39 H ALT 47 H Alkaline Phosphatase 97 Total Protein 9.1 H Albumin 5.1 H Globulin 4.0 Albumin/Globulin Ratio 1.3 Lipase 115 Urine Color Yellow Urine Appearance Cloudy Urine pH 7.5 Ur Specific [place] 1.015 Urine Protein Trace H Urine Glucose (UA) 1+ H Urine Ketones 1+ H Urine Occult Blood 1+ H Urine Nitrate Negative Urine Bilirubin Negative Urine Urobilinogen 0.2 Ur Leukocyte Esterase 1+ H Urine RBC 1-5/hpf Urine WBC 1-5/hpf Ur Squamous Epith Cells None seen Amorphous Sediment 3+ Urine Bacteria Many (>30) H Urine Mucus 1+ H Ur Culture Indicated? Specimen cultured Vol Urine Centrifuged 10ml (spun) Assessment & Plan Assessment & Plan narrative: 1. Cholecystitis Patient presents with nausea, vomiting, and acute onset of abdominal pain. There is evidence of a gallstone lodged in the gallbladder neck, and a sonographic Muse sign. Although her white blood cell count is normal, it is at the upper limits of normal. She has a left shift. As she is chronically anticoagulated and needs to be 48 hours off of Xarelto prior to surgery, will initiate empiric antibiotics with ceftriaxone and Flagyl. She can be cleared for surgery tomorrow from a standpoint of her anticoagulation as she last took it yesterday morning. Will make her NPO after midnight, allow clear liquids this evening. 2. AFib with RVR Likely secondary to a combination of not receiving her morning medications, nausea/vomiting, pain, and dehydration. Will give her oral dose of flecainide and continue IV fluids. Will consider giving additional IV medications if rate control can not be achieved otherwise. As noted, patient was requesting referral for an AFib ablation during her recent visit with Cardiology. She is chronically on Xarelto, but this was not taken today due to her significant nausea and vomiting. It will continue to be held in preparation for surgery. Will place on Lovenox 1 milligram/kg subQ b.i.d. for now. Will plan to hold tomorrow morning's dose in light of possible surgery. 3. Diabetes mellitus type 2, uncontrolled with hyperglycemia Will place on fingersticks and sliding scale. 4. Hypothyroidism Will plan to continue her usual dose of thyroid replacement once it can be confirmed 5. Hypertension Blood pressures are moderately elevated, likely secondary to pain, nausea, vomiting and being off of her usual meds. Await medication reconciliation. 6. Dyslipidemia Holding her usual cholesterol meds for now. 7. Abnormal UA She does have a history of E coli UTIs in the past. Await culture and sensitivities. She is on empiric ceftriaxone for now. 8. Transaminitis Likely secondary to acute cholecystitis. Will obtain follow-up labs tomorrow. Code status Full Prophylaxis On Lovenox Disposition Admit to inpatient. Time-Based Coding :: [TOTAL MINUTES] spent with patient and on the chart (including review of chart, obtaining history, exam, reviewing outside data, placing orders, documenting exam and treatment plan, and counseling patient) on [DATE].
[2024-04-17 16:22] LABS: Troponin I < 0.012 ng/mL (0.01-0.034)
[2024-04-17] MEDS: FLECAINIDE 100 MG TABLET 50 MG PO ×2 (16:31→20:55)
[2024-04-17] MEDS: metroNIDAZOLE 500 MG/100 ML PIGGYBACK 100 MG IV ×2 (16:33→23:39)
[2024-04-17] MEDS: SODIUM CHLORIDE 0.9% 1,000 ML 100 ML IV (16:34)
--- NOTE | 2024-04-17 17:25 | PM.CN.IH.1 ---
History of Present Illness Consult details Date Patient Seen: 04/17/24 Time Patient Seen: 17:25 Chief complaint: RUQ pain vomiting Reason for consult: Pt with biliary disease, RUQ pain and vomiting this am came to hosptial. Requesting provider: Evens Crawford Narrative: Has been seen for biliary disease in the past. Per ED report had prior surgery cancelled due to a fib. today has sx of 'gallbladder attack' with nausea and vomiting, no fevers or chills. was worked up in ED found to be in a fib. on xeralto last dose yesterday. Meds Home Medications and Allergies Home Medications Medication Instructions Recorded Confirmed Type acetaminophen 325 mg tablet 650 mg PO Q4-6H PRN pain 04/30/23 04/17/24 History metoprolol succinate 25 mg 12.5 mg (1/2 x 25 mg) PO DAILY #30 01/19/24 04/17/24 Rx tablet,extended release 24 hr tabs fenofibrate 160 mg tablet 160 mg PO DAILY #90 tabs 03/18/24 04/17/24 Rx metformin 500 mg tablet 500 mg PO BID #180 tabs 03/21/24 04/17/24 Rx flecainide 100 mg tablet 50 mg PO BID 04/17/24 04/17/24 History levothyroxine 75 mcg tablet 75 mcg PO DAILY 04/17/24 04/17/24 History lisinopril 10 mg tablet 10 mg PO BID 04/17/24 04/17/24 History loratadine 10 mg tablet 10 mg PO DAILY 04/17/24 04/17/24 History rivaroxaban 20 mg tablet (Xarelto) 20 mg PO DAILY 04/17/24 04/17/24 History Allergies Allergy/AdvReac Type Severity Reaction Status Date / Time azithromycin Allergy Mild Rash Verified 04/17/24 12:02 Exam Vital Signs (past 8 hours): - 04/17/24 12:02 04/17/24 13:57 04/17/24 14:00 Temperature 99.3 F Pulse Rate 137 H 136 H Respiratory Rate 16 21 Blood Pressure 153/81 H 146/86 H 144/79 H Pulse Oximetry 97 94 Oxygen Delivery Method Room Air Oxygen Flow Rate 04/17/24 14:00 04/17/24 14:16 04/17/24 14:21 Temperature Pulse Rate 138 H 135 H 129 H Respiratory Rate 18 13 11 L Blood Pressure 144/79 H 143/88 H 136/83 Pulse Oximetry 96 97 95 Oxygen Delivery Method Room Air Oxygen Flow Rate 04/17/24 14:30 04/17/24 15:00 04/17/24 15:00 Temperature Pulse Rate 121 H 125 H Respiratory Rate 12 Blood Pressure 130/87 141/89 H Pulse Oximetry 95 95 Oxygen Delivery Method Nasal Cannula Oxygen Flow Rate 1 04/17/24 15:30 04/17/24 15:30 04/17/24 16:00 Temperature Pulse Rate 130 H 125 H Respiratory Rate 24 Blood Pressure 125/75 Pulse Oximetry 96 97 Oxygen Delivery Method Oxygen Flow Rate 04/17/24 16:01 04/17/24 16:01 Temperature Pulse Rate 128 H Respiratory Rate Blood Pressure 149/94 H Pulse Oximetry 98 Oxygen Delivery Method Oxygen Flow Rate Oxygen Delivery Method Nasal Cannula Oxygen Flow Rate 1 Const General: cooperative and healthy appearing HENPA Head: normal to inspection Ears: hearing grossly normal bilaterally Eyes General: appearance normal, both eyes and all related structures Neck Neck: normal visual inspection Chest Chest: normal inspection of the chest Resp Effort & Inspection: normal respiratory effort, able to speak in complete sentences and no audible wheezes Cardio Rhythm: abnormal rhythm irregularly irregular Heart Sounds: S1 normal GI Inspection: normal to inspection, non-distended and no incisions Palpation: soft and no hepatosplenomegaly Other: TTP RUQ, negative murphys Objective Imaging US - abdomen: My impression: dilated gallbladder. no wall thickening. minimal pericholecystic fluid. Radiologist's impression: IMPRESSION: Suspicion for cholecystitis, with an enlarged gallbladder with a 1.9 cm stone lodged within the gallbladder neck. The sonographic Muse sign is positive. No additional sonographic signs of cholecystitis are seen. The common bile duct is enlarged at 11 mm, previously measuring 8 mm on MRI. Enlarged, fatty infiltrated liver. Labs 04/17/24 12:25 04/17/24 12:25 Labs: Laboratory Results - last 24 hr 04/17/24 12:25 WBC 10.4 RBC 4.67 Hgb 13.5 Hct 39.1 MCV 83.7 MCH 28.9 MCHC 34.6 RDW 13.4 Plt Count 251 Neut % (Auto) 86.8 H Lymph % (Auto) 9.6 L [place] % (Auto) 2.9 L Eos % (Auto) 0.4 L Baso % (Auto) 0.3 Neut # (Auto) 9000 H Lymph # (Auto) 1000 L [place] # (Auto) 300 Eos # (Auto) 0 Baso # (Auto) 0 Sodium 138 Potassium 3.6 Chloride 100 Carbon Dioxide 25 BUN 19 H Creatinine 0.43 L Estimated GFR > 60 BUN/Creatinine Ratio 44.2 H Glucose 201 H Calcium 9.9 Total Bilirubin 0.4 AST 39 H ALT 47 H Alkaline Phosphatase 97 Troponin I < 0.012 Total Protein 9.1 H Albumin 5.1 H Globulin 4.0 Albumin/Globulin Ratio 1.3 Lipase 115 Urine Color Yellow Urine Appearance Cloudy Urine pH 7.5 Ur Specific [place] 1.015 Urine Protein Trace H Urine Glucose (UA) 1+ H Urine Ketones 1+ H Urine Occult Blood 1+ H Urine Nitrate Negative Urine Bilirubin Negative Urine Urobilinogen 0.2 Ur Leukocyte Esterase 1+ H Urine RBC 1-5/hpf Urine WBC 1-5/hpf Ur Squamous Epith Cells None seen Amorphous Sediment 3+ Urine Bacteria Many (>30) H Urine Mucus 1+ H Ur Culture Indicated? Specimen cultured Vol Urine Centrifuged 10ml (spun) [facility] Medical History Paroxysmal atrial fibrillation Dyslipidemia Osteoporosis Colon cancer screening declined (11/2019) Allergies Knee pain Intrauterine pessary (~2018) Vitamin D deficiency (07/2019) Screening for malignant neoplasm of colon (02/2021) Type 2 diabetes mellitus (07/2019) Essential hypertension (1989) Acquired hypothyroidism Surgical History H/O: hysterectomy Anesthesia Status post bunionectomy Status post breast biopsy Status post endometrial ablation Family History Father Diabetes mellitus Heart disease Pancreatitis Heart attack Hyperlipidemia Hypertension Grandfather Heart disease Cancer Grandmother Heart disease Mother Heart disease Hypertension Hyperlipidemia Grandmother Heart disease Hypertension Sister Age: 64 Hypertension Brother Heart disease Brother Heart disease Brother Heart disease Social History household members: spouse Tobacco & Substance Use Smoking Status: Former smoker alcohol intake: never Diet and Exercise eating out: 1-3 times/week Type(s) of exercise: walking Assessment & Plan Assessment and plan (1) Biliary colic: Status: Acute (2) Acute cholecystitis: Status: Acute (3) Atrial fibrillation with RVR: Status: Acute (4) Atrial fibrillation with rapid ventricular response: Status: Acute Plan A fib- I have asked for admit to medicine service for management. Woabdirizakl recommend holdign off on xeralto until post operative- tentatively tomorrow ow adolfo when stable Biliary colic vs acute cholecystitis --no leukocytosis --GB ttp with dilation and impacted stone regardless pt is a candidate for lap jenn possible open --ast alt slightly elevated in setting of fatty liver so no strict indication for IOC. -NPO at midnight timing of surgery TBD -OK with abx if preferred by medicine team. --Will d/w Dr Wilson in AM Time-Based Coding :: 45 spent with patient and on the chart (including review of chart, obtaining history, exam, reviewing outside data, placing orders, documenting exam and treatment plan, and counseling patient) on today. PROFEE Charge Codes Inpatient or Observation consultation: [id number]
[2024-04-17] MEDS: INSULIN LISPRO 100 UNIT/ML 3ML VIAL SUBCUT (17:42)
[2024-04-17] MEDS: HYDROMORPHONE 0.5 MG INJ IV ×2 (17:42→21:28)
[2024-04-17] MEDS: SODIUM CHLORIDE 0.9% FLUSH 10 ML IV (20:58)
[2024-04-17] MEDS: ENOXAPARIN 100 MG/ML SYRINGE 75 MG SUBCUT (21:28)
[2024-04-18] VITALS (7 sets, daily range): BP systolic 102–146; BP diastolic 60–93; PULSE 89–121; RESP 16–18; TEMP 36.8–37.7; O2SAT 91–97
[2024-04-18] MEDS: ONDANSETRON 4 MG/2 ML INJ IV ×2 (01:09→09:13)
[2024-04-18] MEDS: SODIUM CHLORIDE 0.9% 1,000 ML 100 ML IV ×2 (03:20→14:32)
[2024-04-18] MEDS: HYDROMORPHONE 0.5 MG INJ IV ×4 (03:39→21:08)
[2024-04-18 05:51] LABS: Add Manual Diff / Slide Review NO; Basophils Absolute Auto 0 /uL (0-100); Basophils Percent Auto 0.4 % (0-2); Eosinophils Absolute Auto 0 /uL (0-450); Eosinophils Percent Auto 0.4 % (2-4); Hematocrit 35.8 % (36-46); Hemoglobin 12.3 g/dL (12.0-16.0); Lymphocytes Absolute Auto 2000 /uL (1100-4500); Lymphocytes Percent Auto 21.3 % (25-40); Mean Corpuscular HGB Conc 34.5 % (30-36); Mean Corpuscular Hemoglobin 29.2 PG (26-34); Mean Corpuscular Volume 84.6 fL (80-100); Monocytes Absolute Auto 700 /uL (0-900); Monocytes Percent Auto 7.1 % (3-14); Neutrophils Absolute Auto 6600 /uL (1500-7000); Neutrophils Percent Auto 70.8 % (50-75); Platelet Count 223 X10^3/uL (150-400); Red Blood Cell Count 4.23 X10^6/uL (4.0-5.2); Red Cell Distribution Width 13.5 % (11.6-14.8); White Blood Cell Count 9.3 X10^3/uL (4.5-11.0)
[2024-04-18 06:04] LABS: Alanine Aminotransferase 35 IU/L (<35); Albumin 4.3 g/dL (3.5-5.0); Albumin Globulin Ratio 1.4 (1.0-2.8); Alkaline Phosphatase 76 U/L (38-126); Aspartate Aminotransferase 27 IU/L (14-36); BUN Creatinine Ratio 22.7 (6-22); Bilirubin Total 0.4 mg/dL (0.2-1.3); Blood Urea Nitrogen 10 mg/dL (7-17); Calcium 9.5 mg/dL (8.4-10.2); Carbon Dioxide 24 mmol/L (22-32); Chloride 104 mmol/L (98-107); Estimated Glomerular Filt Rate > 60 mL/min (>60); Globulin 3.1 g/dL (1.7-4.1); Glucose 126 mg/dL (80-110); HEMOLYSIS < 15 (0-50); Magnesium 1.6 mg/dL (1.6-2.3); Potassium 3.6 mmol/L (3.4-5.1); Sodium 137 mmol/L (137-145); Total Protein 7.4 g/dL (6.3-8.2)
--- NOTE | 2024-04-18 07:38 | P.PN_ITS ---
Subjective Subjective Interval history: Summary: She presented to the emergency department this morning with nausea, vomiting, and right upper quadrant pain. She reports it began around 330 this morning. She continued to vomit until she was dry heaving late morning. She has not had any fevers or chest pain. She took Xarelto yesterday but did not have any of her medications today. Her last oral intake was around 10:00 a.m. this morning. On arrival to the emergency department, heart rate was 136, respiratory rate 21, BP 146/86, O2 sats 94% on room air. Labs revealed a white blood cell count of 10.4, hemoglobin 13.5, hematocrit 39.1, platelets 251. 86.8% neutrophils. Chemistry panel revealed normal electrolytes, BUN 19, creatinine 0.43, glucose 201. AST was elevated at 39, ALT 47, alk-phos 97, total bilirubin 0.4. Albumin was 5.1, total protein 9.1. Lipase 115. UA was done which revealed trace protein 1+ glucose 1+ ketones, 1+ occult blood, 1+ leukocyte esterase and many bacteria. Abdominal ultrasound revealed an enlarged liver with generalized moderately increased echogenicity. Gallbladder was enlarged with a 1.9 cm stone lodged within the gallbladder neck. Gallbladder wall is not thickened measuring 3 mm or less. No pericholecystic fluid seen sonographic Muse sign was positive. CBD measured 11 mm up from 8 mm on previous MRI. Findings in total were felt to be suspicious for cholecystitis. On the prior ultrasound in October, the gallstone was mobile within the dependent portion of the gallbladder lumen. Urine is sent for culture. In the ED, patient received 12.5 mg of oral metoprolol, 3 doses of IV metoprolol, 1 L of normal saline, 1 mg of IV Dilaudid. Subsequently received 2 g of IV ceftriaxone. Additionally, 500 mg of metformin were ordered. Admission was recommended. Surgery: lap jenn 04/19 after anticoagulation wears off. S: She was episodic right upper quadrant pain which is well-controlled with pain medications. No nausea. Exam Vital Signs (past 8 hours): - 04/18/24 03:00 04/18/24 06:23 Temperature 99.8 F H Pulse Rate 121 H 93 H Respiratory Rate 18 Blood Pressure 146/93 H Pulse Oximetry 96 Oxygen Flow Rate 0 Oxygen Delivery Method Room Air Oxygen Flow Rate 0 Narrative Exam Narrative: NAD, alert and oriented. Fluent speech. Lungs are clear, normal rate and effort. Heart is regular, no murmur gallop or rub. Abdomen is soft, non distended. She does have some right upper quadrant tenderness with the palpation. Extremities are free of edema. Objective Imaging US - abdomen: Radiologist's impression: IMPRESSION: Suspicion for cholecystitis, with an enlarged gallbladder with a 1.9 cm stone lodged within the gallbladder neck. The sonographic Muse sign is positive. No additional sonographic signs of cholecystitis are seen. The common bile duct is enlarged at 11 mm, previously measuring 8 mm on MRI. Enlarged, fatty infiltrated liver. Labs 04/18/24 05:30 04/18/24 05:30 Labs: Laboratory Results - last 24 hr 04/17/24 04/18/24 12:25 05:30 WBC 10.4 9.3 RBC 4.67 4.23 Hgb 13.5 12.3 Hct 39.1 35.8 L MCV 83.7 84.6 MCH 28.9 29.2 MCHC 34.6 34.5 RDW 13.4 13.5 Plt Count 251 223 Neut % (Auto) 86.8 H 70.8 Lymph % (Auto) 9.6 L 21.3 L [place] % (Auto) 2.9 L 7.1 Eos % (Auto) 0.4 L 0.4 L Baso % (Auto) 0.3 0.4 Neut # (Auto) 9000 H 6600 Lymph # (Auto) 1000 L 2000 [place] # (Auto) 300 700 Eos # (Auto) 0 0 Baso # (Auto) 0 0 Sodium 138 137 Potassium 3.6 3.6 Chloride 100 104 Carbon Dioxide 25 24 BUN 19 H 10 Creatinine 0.43 L 0.44 L Estimated GFR > 60 > 60 BUN/Creatinine Ratio 44.2 H 22.7 H Glucose 201 H 126 H Calcium 9.9 9.5 Magnesium 1.6 Total Bilirubin 0.4 0.4 AST 39 H 27 ALT 47 H 35 H Alkaline Phosphatase 97 76 Troponin I < 0.012 Total Protein 9.1 H 7.4 Albumin 5.1 H 4.3 Globulin 4.0 3.1 Albumin/Globulin Ratio 1.3 1.4 Lipase 115 Urine Color Yellow Urine Appearance Cloudy Urine pH 7.5 Ur Specific [place] 1.015 Urine Protein Trace H Urine Glucose (UA) 1+ H Urine Ketones 1+ H Urine Occult Blood 1+ H Urine Nitrate Negative Urine Bilirubin Negative Urine Urobilinogen 0.2 Ur Leukocyte Esterase 1+ H Urine RBC 1-5/hpf Urine WBC 1-5/hpf Ur Squamous Epith Cells None seen Amorphous Sediment 3+ Urine Bacteria Many (>30) H Urine Mucus 1+ H Ur Culture Indicated? Specimen cultured Vol Urine Centrifuged 10ml (spun) PFSH Medical History Paroxysmal atrial fibrillation Dyslipidemia Osteoporosis Colon cancer screening declined (11/2019) Allergies Knee pain Intrauterine pessary (~2018) Vitamin D deficiency (07/2019) Screening for malignant neoplasm of colon (02/2021) Type 2 diabetes mellitus (07/2019) Essential hypertension (1989) Acquired hypothyroidism Surgical History H/O: hysterectomy Anesthesia Status post bunionectomy Status post breast biopsy Status post endometrial ablation Family History Father Diabetes mellitus Heart disease Pancreatitis Heart attack Hyperlipidemia Hypertension Grandfather Heart disease Cancer Grandmother Heart disease Mother Heart disease Hypertension Hyperlipidemia Grandmother Heart disease Hypertension Sister Age: 64 Hypertension Brother Heart disease Brother Heart disease Brother Heart disease Social History household members: spouse Smoking Status: Former smoker alcohol intake: never eating out: 1-3 times/week Type(s) of exercise: walking Assessment & Plan Assessment & Plan narrative: 1. Cholecystitis with impacted gallbladder neck stone, present on admission and active. Patient presents with nausea, vomiting, and acute onset of abdominal pain. There is evidence of a gallstone lodged in the gallbladder neck, and a sonographic Muse sign. Although her white blood cell count is normal, it is at the upper limits of normal. She has a left shift. As she is chronically anticoagulated and needs to be 48 hours off of Xarelto prior to surgery, will initiate empiric antibiotics with ceftriaxone and Flagyl. She can be cleared for surgery tomorrow from a standpoint of her anticoagulation as she last took it yesterday morning. Will make her NPO after midnight, allow clear liquids this evening. 2. Atrial fibrillation with RVR, present on admission and improved. Likely secondary to a combination of not receiving her morning medications, nausea/vomiting, pain, and dehydration. Will give her oral dose of flecainide and continue IV fluids. Will consider giving additional IV medications if rate control can not be achieved otherwise. As noted, patient was requesting referral for an AFib ablation during her recent visit with Cardiology. She is chronically on Xarelto, but this was not taken today due to her significant nausea and vomiting. It will continue to be held in preparation for surgery. Will place on Lovenox 1 milligram/kg subQ b.i.d. for now. Will plan to hold tomorrow morning's dose in light of possible surgery. 3. Diabetes mellitus type 2, uncontrolled with hyperglycemia. Present on admission and active. Will place on fingersticks and sliding scale. 4. Hypothyroidism, stable. Will plan to continue her usual dose of thyroid replacement once it can be confirmed 5. Hypertension, stable. Blood pressures are moderately elevated, likely secondary to pain, nausea, vomiting and being off of her usual meds. Await medication reconciliation. 6. Dyslipidemia, stable. Holding her usual cholesterol meds for now. 7. Abnormal UA, active. She does have a history of E coli UTIs in the past. Await culture and sensitivities. She is on empiric ceftriaxone for now. 8. Transaminitis, active. Likely secondary to acute cholecystitis. Will obtain follow-up labs tomorrow. PLAN: -NPO. -DW surgery. Surgery 04/19. -Continue antibiotics. -analgesics. MARIA LUISA: . Code status Full Prophylaxis On Lovenox Disposition Admit to inpatient. Time-Based Coding :: [TOTAL MINUTES] spent with patient and on the chart (including review of chart, obtaining history, exam, reviewing outside data, placing orders, documenting exam and treatment plan, and counseling patient) on [DATE]. Quality VTE Deep Vein Thrombosis/Pulmonary Embolism Present on Admission: No
[2024-04-18] MEDS: metroNIDAZOLE 500 MG/100 ML PIGGYBACK 100 MG IV ×2 (09:22→17:05)
[2024-04-18] MEDS: LEVOTHYROXINE 75 MCG TABLET PO (09:38)
[2024-04-18] MEDS: lisinopriL 10 MG TABLET PO (09:40)
[2024-04-18] MEDS: FLECAINIDE 100 MG TABLET 50 MG PO ×2 (09:41→21:04)
[2024-04-18] MEDS: ENOXAPARIN 100 MG/ML SYRINGE 75 MG SUBCUT (09:43)
[2024-04-18] MEDS: SODIUM CHLORIDE 0.9% FLUSH 10 ML IV ×2 (09:52→21:09)
--- NOTE | 2024-04-18 15:11 | CM.DANOTE ---
Patient is a 68 yo female, resident of [place], recent dx of afib, presents with complaint of Abd Pain. Admitted for further work up and medical management. Per Surgeon Consult, pt with acute cholecystitis and recommendation of lap jenn after medications stopped. Patient's project manager entertainment and media is Dr Ortiz. PCP: Mando Puente Payer: FELICIA/NEIL Reviewed chart, met w/patient and her family at bedside. Patient lives independently with her and 91 yo MIL whom she cares for. Patient denies needs from this CM team currently; No barriers identified at this time to patient's safe discharge home w/family to assist; close outpatient f/u recommended pending pt's progress post surgery which is planned for tomorrow 04/19. CM team will plan to follow clinical course closely in case any DC needs or concerns arise. MARIALUISA Hinojosa Discharge Planning/Care Management CM Discharge Assessment Start: 04/18/24 15:09 Freq: Status: Active Protocol: Document 04/18/24 15:09 BF (Rec: 04/18/24 15:11 BF [id number]) Discharge Planning Assessment Assigned Application Integration Specialist MARIALUISA Stoddard DPOA/Assigned Designee Name spouse Braeden Contact Information [phone] Advance Directives? No Advance Directives on File No History Provided By Patient,Family Member,Medical Record Has Patient been admitted in last 30 No days? Comment last admit in Dec 2023 for AFIB and d/c home Prior Living Arrangements House Household Members spouse Type of transporation used prior to Drives own vehicle admit Independent with ADL's Yes Is patient alert and oriented? Yes Caregiver for Another Yes: elderly MIL at home Barriers to Discharge No Comment Pending progress post lap jenn Discharge Plan Home Transportation Arrangement Family Referrals Initiated None needed Whiteboard Updated in Patient Room with Yes name and ext. # of Application Integration Specialist Review Status In Process Please Provide Date Initial DC 04/18/24 Assessment Was Performed Next Review Type Continued Stay Review
[2024-04-18] MEDS: METOPROLOL IR 25 MG TABLET 12.5 MG PO ×2 (16:20→21:04)
[2024-04-18] MEDS: cefTRIAXone 2,000 MG in SODIUM CHLORIDE 0.9% 100 ML 200 MG IV (16:20)
--- NOTE | 2024-04-18 17:48 | P.PN_ITS ---
Subjective Subjective Date Patient Seen: 04/18/24 Time Patient Seen: 17:48 Interval history: Ita is on the schedule for a lap jenn tomorrow. Exam Vital Signs (past 8 hours): - 04/18/24 12:00 04/18/24 16:25 Temperature 98.3 F 98.2 F Pulse Rate 101 H 117 H Respiratory Rate 16 16 Blood Pressure 134/81 111/79 Pulse Oximetry 97 92 Oxygen Flow Rate 0 0 Oxygen Delivery Method Room Air Oxygen Flow Rate 0 Const General: No acute distress Objective Labs 04/18/24 05:30 04/18/24 05:30 Labs: Laboratory Results - last 24 hr 04/18/24 05:30 WBC 9.3 RBC 4.23 Hgb 12.3 Hct 35.8 L MCV 84.6 MCH 29.2 MCHC 34.5 RDW 13.5 Plt Count 223 Neut % (Auto) 70.8 Lymph % (Auto) 21.3 L [place] % (Auto) 7.1 Eos % (Auto) 0.4 L Baso % (Auto) 0.4 Neut # (Auto) 6600 Lymph # (Auto) 2000 [place] # (Auto) 700 Eos # (Auto) 0 Baso # (Auto) 0 Sodium 137 Potassium 3.6 Chloride 104 Carbon Dioxide 24 BUN 10 Creatinine 0.44 L Estimated GFR > 60 BUN/Creatinine Ratio 22.7 H Glucose 126 H Calcium 9.5 Magnesium 1.6 Total Bilirubin 0.4 AST 27 ALT 35 H Alkaline Phosphatase 76 Total Protein 7.4 Albumin 4.3 Globulin 3.1 Albumin/Globulin Ratio 1.4 PFSH Medical History Paroxysmal atrial fibrillation Dyslipidemia Osteoporosis Colon cancer screening declined (11/2019) Allergies Knee pain Intrauterine pessary (~2018) Vitamin D deficiency (07/2019) Screening for malignant neoplasm of colon (02/2021) Type 2 diabetes mellitus (07/2019) Essential hypertension (1989) Acquired hypothyroidism Surgical History H/O: hysterectomy Anesthesia Status post bunionectomy Status post breast biopsy Status post endometrial ablation Family History Father Diabetes mellitus Heart disease Pancreatitis Heart attack Hyperlipidemia Hypertension Grandfather Heart disease Cancer Grandmother Heart disease Mother Heart disease Hypertension Hyperlipidemia Grandmother Heart disease Hypertension Sister Age: 64 Hypertension Brother Heart disease Brother Heart disease Brother Heart disease Social History household members: spouse Smoking Status: Former smoker alcohol intake: never eating out: 1-3 times/week Type(s) of exercise: walking Assessment & Plan Assessment and plan (1) Symptomatic cholelithiasis: Status: Acute Plan Plan for lap jenn tomorrow Time-Based Coding :: [TOTAL MINUTES] spent with patient and on the chart (including review of chart, obtaining history, exam, reviewing outside data, placing orders, documenting exam and treatment plan, and counseling patient) on [DATE]. Quality VTE Deep Vein Thrombosis/Pulmonary Embolism Present on Admission: No IH PROFEE Departmental Buyer Document charge(s): No
[2024-04-18] MEDS: ACETAMINOPHEN 325 MG TABLET 650 MG PO (18:18)
[2024-04-19] VITALS (14 sets, daily range): BP systolic 118–157; BP diastolic 69–99; PULSE 70–124; RESP 15–21; TEMP 36.5–37.3; O2SAT 95–100; BMI 27.7
--- NOTE | 2024-04-19 | PATH_ITS ---
[facility] Accession Number: [id number] No. of containers..01 Tissue . 01 Material submitted: . gallbladder - GALLBLADDER . 01 Diagnosis: GALLBLADDER, CHOLECYSTECTOMY: Mild chronic calculous cholecystitis with reactive changes. Negative for dysplasia and malignancy. [facility] 04/21/2024 1123 Local . 01 Electronically signed: . Eileen Moore MD, Pathologist NPI- [id number] . 01 Gross description: . Received in formalin with two patient identifiers and gallbladder, is a disrupted gallbladder measuring 10.3 x 5.3 x 2.2 cm with a violaceous and mostly smooth external surface, and a small defect measuring 0.6 x 0.2 cm. The cystic duct margin is inked blue and no pericystic lymph node is identified. The lumen contains a single dark brown and yellow roughened calculus admixed with brown-green viscous bile. The mucosa is red-brown and denuded with pinpoint yellow discoloration. The mucosa near the defect is sauceda in color. The external area of the defect was inked orange. The choudhary average 0.3 cm thick. Credit Charge Authorizer sections to include the cystic duct margin and full thickness sections are submitted in A1. ([id number]) /MRV 04/20/2024 1844 Local . 01 Pathologist provided ICD-10: K80.10 . 01 CPT . 011230 Specimen Comment: A courtesy copy of this report has been sent to [phone] Performed at: [address] [address], [place], [place] [id number] MD John Jones MD Phone: [phone]
[2024-04-19] MEDS: metroNIDAZOLE 500 MG/100 ML PIGGYBACK 100 MG IV ×3 (00:34→17:54)
[2024-04-19] MEDS: SODIUM CHLORIDE 0.9% 1,000 ML 100 ML IV ×2 (03:23→17:07)
--- NOTE | 2024-04-19 07:42 | P.PN_ITS ---
Subjective Subjective Interval history: S: Her right upper quadrant pain continues but is well-controlled with pain medication. She did have some rapid response today, but received her a.m. metoprolol and flecainide. She denies chest pain or palpitations. Lap jnen today. Exam Vital Signs (past 8 hours): - 04/19/24 03:00 Temperature 99.2 F Pulse Rate 122 H Respiratory Rate 18 Blood Pressure 122/69 Pulse Oximetry 95 Oxygen Flow Rate 0 Oxygen Delivery Method Room Air Oxygen Flow Rate 0 Narrative Exam Narrative: NAD, alert and oriented. Fluent speech. Lungs are clear, normal rate and effort. Heart is irregular, no murmur gallop or rub. Abdomen is soft, non distended. She is tender in the RUQ. Extremities are free of edema. Objective Labs 04/18/24 05:30 04/18/24 05:30 [facility] Medical History Paroxysmal atrial fibrillation Dyslipidemia Osteoporosis Colon cancer screening declined (11/2019) Allergies Knee pain Intrauterine pessary (~2018) Vitamin D deficiency (07/2019) Screening for malignant neoplasm of colon (02/2021) Type 2 diabetes mellitus (07/2019) Essential hypertension (1989) Acquired hypothyroidism Surgical History H/O: hysterectomy Anesthesia Status post bunionectomy Status post breast biopsy Status post endometrial ablation Family History Father Diabetes mellitus Heart disease Pancreatitis Heart attack Hyperlipidemia Hypertension Grandfather Heart disease Cancer Grandmother Heart disease Mother Heart disease Hypertension Hyperlipidemia Grandmother Heart disease Hypertension Sister Age: 64 Hypertension Brother Heart disease Brother Heart disease Brother Heart disease Social History household members: spouse Smoking Status: Former smoker alcohol intake: never eating out: 1-3 times/week Type(s) of exercise: walking Assessment & Plan Assessment & Plan narrative: 1. Cholecystitis with impacted gallbladder neck stone, present on admission and active. -Xarelto held 48 hours. -Lovenox stopped yesterday afternoon for surgery. 2. Atrial fibrillation with RVR, present on admission and improved. 3. Diabetes mellitus type 2, uncontrolled with hyperglycemia. Present on admission and active. Will place on fingersticks and sliding scale. 4. Hypothyroidism, stable. Will plan to continue her usual dose of thyroid replacement once it can be confirmed 5. Hypertension, stable. Blood pressures are moderately elevated, likely secondary to pain, nausea, vomiting and being off of her usual meds. Await medication reconciliation. 6. Dyslipidemia, stable. Holding her usual cholesterol meds for now. 7. Abnormal UA, active. She does have a history of E coli UTIs in the past. Await culture and sensitivities. She is on empiric ceftriaxone for now. 8. Transaminitis, active. Likely secondary to acute cholecystitis. Will obtain follow-up labs tomorrow. PLAN: -NPO. -DW surgery. Surgery today, 04/19. -Continue antibiotics. -analgesics. -all anticoagulation stopped as of the afternoon of 04/18 -metoprolol and flecainide given this morning. MARIA LUISA: 04/20. Code status Time-Based Coding :: [TOTAL MINUTES] spent with patient and on the chart (including review of chart, obtaining history, exam, reviewing outside data, placing orders, documenting exam and treatment plan, and counseling patient) on [DATE]. Quality VTE Deep Vein Thrombosis/Pulmonary Embolism Present on Admission: No
[2024-04-19] MEDS: METOPROLOL IR 25 MG TABLET 12.5 MG PO ×3 (09:52→20:03)
[2024-04-19] MEDS: SODIUM CHLORIDE 0.9% FLUSH 10 ML IV (09:54)
[2024-04-19] MEDS: FLECAINIDE 100 MG TABLET 50 MG PO ×2 (09:56→20:01)
[2024-04-19] MEDS: LACTATED RINGERS 1,000 ML 42 ML IV (13:43)
[2024-04-19] MEDS: ACETAMINOPHEN 325 MG TABLET 975 MG PO (13:53)
--- NOTE | 2024-04-19 13:59 | PM.PREOP ---
Pre-operative Note COVID-19 COVID-19 status: Not tested Interval Note History & Physical reviewed/Exam performed by Physician: Yes Changes to H&P: No ASA Class (for procedural sedation): II
--- NOTE | 2024-04-19 14:35 | SUR.OPER ---
Supine on padded OR bed, head on pillow, arms secured on padded arm boards at <90 degrees abduction, legs uncrossed, safety belt at thigh, tape over blanket over lower legs.
[2024-04-19] MEDS: BUPIVACAINE 0.5% W/ EPI (PF) 30 ML VIAL INJ (14:41)
--- NOTE | 2024-04-19 15:45 | P.OP_ITS ---
Operative Date/Time/Diagnoses Date of procedure: 04/19/24 Time of procedure: 15:46 Pre-op diagnosis: Symptomatic cholelithiasis Post-op diagnosis: other (Acute on chronic cholecystitis) Procedure & Clinicians Procedure: Laparoscopic cholecystectomy Same procedure as scheduled: Yes Surgeon: Kimo Wilson Blast Furnace Supervisor: Yaya Santamaria Anesthesia Type: General Operative Notes Procedure in detail: The patient was given preoperative antibiotics. The patient was brought to the operating room and placed on the table in the supine position. General endotracheal anesthesia was induced. The abdomen was prepped and draped. A time-out was performed. We made a 1 cm infraumbilical incision. We dissected down to the base of the umbilical stalk using cautery. We grasped the umbilical stalk with a Tariq clamp to elevate the abdominal wall. We scored the fascia in the midline with cautery. We pierced the peritoneum with a Peon clamp. The Kayode port was placed and the abdomen was insufflated to 15 mmHg. A 5 mm 30 degree laparoscopic was inserted. There was no evidence of any injury from the entry. Next, we placed 5 mm ports in the subxiphoid position and right upper quadrant at the midclavicular line and anterior axillary line. The patient was then positioned in reverse Trendelenburg and the table was tilted to the left. The gallbladder was quite tense and distended and needed to be decompressed with a needle. We aspirated a proximally 60 cc of mostly clear fluid. We then grasped the gallbladder at the dome and retracted cephalad. There were extensive fibrotic adhesions of mesenteric tissue to the serosa. The adhesions were dissected with a combination of blunt dissection and hook cautery. We then dissected the cystic structures with a combination of hook cautery and blunt dissection. We obtained a critical view. We placed clips on the cystic duct and artery and divided the cystic duct and artery sharply between the clips. The gallbladder was then dissected off the liver and placed in a specimen retrieval bag. We irrigated the right upper quadrant and all the aspirate returned clear. We then removed the 5 mm ports under direct vision we removed the Kayode port. We then injected some local into the fascia and closed the fascia with 2 interrupted 0 Vicryl sutures. The skin incisions were closed with 4-0 Monocryl and Steri-Strips were applied. Band-Aids were applied over the Steri-Strips. EBL: 30 mL Specimen: Gallbladder and contents Post-operative Condition: stable Disposition: PACU
[2024-04-19] MEDS: cefTRIAXone 2,000 MG in SODIUM CHLORIDE 0.9% 100 ML 200 MG IV (17:14)
--- NOTE | 2024-04-19 17:19 | PC.NURSE ---
Patient brought back from PACU to her room approx 1645. This RN assisted with settling patient, VSS. Denies pain, does state her abdomen feels full of air. 4 lap sites with allevyn dressings in place, CDI. Call light within reach. Primary RN updated. Patient's at bedside.
[2024-04-19] MEDS: HYDROCODONE/ACET 5/325 TABLET 1 TAB PO (20:28)
[2024-04-20] VITALS: BP 136/84; PULSE 102; RESP 14; TEMP 36.9; O2SAT 96
[2024-04-20] MEDS: metroNIDAZOLE 500 MG/100 ML PIGGYBACK 100 MG IV ×2 (00:38→08:36)
[2024-04-20 04:44] VITALS: BP 137/87; PULSE 77; RESP 16; O2SAT 95
[2024-04-20] MEDS: SODIUM CHLORIDE 0.9% 1,000 ML 100 ML IV (06:10)
[2024-04-20 08:00] VITALS: BP 142/95; PULSE 110; RESP 18; TEMP 36.4; O2SAT 93
[2024-04-20 08:30] LABS: Hematocrit 39.2 % (36-46); Hemoglobin 13.2 g/dL (12.0-16.0); Mean Corpuscular HGB Conc 33.6 % (30-36); Mean Corpuscular Hemoglobin 28.8 PG (26-34); Mean Corpuscular Volume 85.7 fL (80-100); Platelet Count 236 X10^3/uL (150-400); Red Blood Cell Count 4.58 X10^6/uL (4.0-5.2); Red Cell Distribution Width 13.3 % (11.6-14.8)
[2024-04-20] MEDS: FLECAINIDE 100 MG TABLET 50 MG PO (08:33)
[2024-04-20] MEDS: HYDROCODONE/ACET 5/325 TABLET 1 TAB PO ×2 (08:33→14:25)
[2024-04-20 08:34] VITALS: BP 142/95; PULSE 110
[2024-04-20] MEDS: METOPROLOL IR 25 MG TABLET 12.5 MG PO (08:34)
[2024-04-20] MEDS: lisinopriL 10 MG TABLET PO (08:34)
[2024-04-20] MEDS: LEVOTHYROXINE 75 MCG TABLET PO (08:34)
[2024-04-20 08:48] LABS: Alanine Aminotransferase 61 IU/L (<35); Albumin 3.7 g/dL (3.5-5.0); Albumin Globulin Ratio 1.3 (1.0-2.8); Alkaline Phosphatase 70 U/L (38-126); Aspartate Aminotransferase 68 IU/L (14-36); BUN Creatinine Ratio 20.5 (6-22); Bilirubin Total 0.4 mg/dL (0.2-1.3); Blood Urea Nitrogen 9 mg/dL (7-17); Calcium 9.5 mg/dL (8.4-10.2); Carbon Dioxide 26 mmol/L (22-32); Chloride 104 mmol/L (98-107); Estimated Glomerular Filt Rate > 60 mL/min (>60); Globulin 2.8 g/dL (1.7-4.1); Glucose 117 mg/dL (80-110); HEMOLYSIS < 15 (0-50); Potassium 3.6 mmol/L (3.4-5.1); Sodium 140 mmol/L (137-145); Total Protein 6.5 g/dL (6.3-8.2)
--- NOTE | 2024-04-20 11:12 | PM.DS.1 ---
History of Present Illness History of Present Illness Chief complaint: RUQ pain vomiting Narrative: From H&P: 68-year-old female with hypothyroidism, hypertension, diabetes mellitus type 2, dyslipidemia, and paroxysmal atrial fibrillation originally diagnosed December 06, 2023. The atrial fibrillation was incidentally found during a preop for an elective cholecystectomy. She was initially placed on metoprolol and Xarelto. She developed bradycardia from the metoprolol and her dose was reduced. She was admitted to the hospital December 19 with AFib with RVR. Echocardiogram revealed preserved ejection fraction with no valvular abnormalities. She was placed on oral diltiazem 240 mg daily and metoprolol 25 mg twice daily. She was evaluated by Cardiology December 23 and was found to have sinus bradycardia. A stress test was recommended. If it was found to be low risk, flecainide 50 mg twice daily was recommended. Additionally metoprolol was reduced from 25 mg twice daily to once daily. Her stress test was performed on January 04 and was negative for ischemia. She ended up admitted again to the hospital on January 16 in AFib with RVR. She was initiated on flecainide. She discharged on flecainide 50 mg twice daily as well as metoprolol extended release 12.5 mg daily. She saw cardiology on January 21 and no changes to her medication regimen were made. She had not had any additional bouts of AFib with RVR. She more recently saw Cardiology on April [address] Paula izquierdo that she wanted to pursue an ablation. Due to recurrent issues with paroxysmal atrial fibrillation, she has not proceeded with the cholecystectomy. She presented to the emergency department this morning with nausea, vomiting, and right upper quadrant pain. She reports it began around 330 this morning. She continued to vomit until she was dry heaving late morning. She has not had any fevers or chest pain. She took Xarelto yesterday but did not have any of her medications today. Her last oral intake was around 10:00 a.m. this morning. On arrival to the emergency department, heart rate was 136, respiratory rate 21, BP 146/86, O2 sats 94% on room air. Labs revealed a white blood cell count of 10.4, hemoglobin 13.5, hematocrit 39.1, platelets 251. 86.8% neutrophils. Chemistry panel revealed normal electrolytes, BUN 19, creatinine 0.43, glucose 201. AST was elevated at 39, ALT 47, alk-phos 97, total bilirubin 0.4. Albumin was 5.1, total protein 9.1. Lipase 115. UA was done which revealed trace protein 1+ glucose 1+ ketones, 1+ occult blood, 1+ leukocyte esterase and many bacteria. Abdominal ultrasound revealed an enlarged liver with generalized moderately increased echogenicity. Gallbladder was enlarged with a 1.9 cm stone lodged within the gallbladder neck. Gallbladder wall is not thickened measuring 3 mm or less. No pericholecystic fluid seen sonographic Muse sign was positive. CBD measured 11 mm up from 8 mm on previous MRI. Findings in total were felt to be suspicious for cholecystitis. On the prior ultrasound in October, the gallstone was mobile within the dependent portion of the gallbladder lumen. Urine is sent for culture. In the ED, patient received 12.5 mg of oral metoprolol, 3 doses of IV metoprolol, 1 L of normal saline, 1 mg of IV Dilaudid. Subsequently received 2 g of IV ceftriaxone. Additionally, 500 mg of metformin were ordered. Admission was recommended. She does report having eaten a fairly fatty meal yesterday inclusive of chicken skins. She also had quiche with chicken sausage earlier this weekend. Discharge Providers Provider Date of admission: 04/17/24 15:43 Discharge Date: 04/20/24 Primary care physician: FABIANA Monzon Consults: 04/18/24 08:20 Consult to General Surgery Routine Comment: Consulting Provider: Kimo Wilson Reason for consultation: cholecystitis Has provider been notified: Yes Discharge provider: Jean Paul Bennett MD Summary Hospital Course Discharge Diagnosis: 1. Cholecystitis with impacted gallbladder neck stone, present on admission and resolved. -Xarelto held 48 hours. Lap jenn 04/19. 2. Atrial fibrillation (PAF) with RVR, present on admission and improved. 3. Diabetes mellitus type 2, uncontrolled with hyperglycemia. Present on admission and active. 4. Hypothyroidism, stable. 5. Hypertension, stable. 6. Dyslipidemia, stable. Holding her usual cholesterol meds for now. 7. UTI, present on admission and resolved. Given antibiotics for 3 days while in the hospital, we will go home without further antibiotics. 8. Transaminitis, improved. Hospital Course: She presented with abdominal pain and cholecystitis on imaging. Her anticoagulation was held and she went to surgery for laparoscopic cholecystectomy on April 19. This was uncomplicated and she did well postoperatively. She was felt to be stable for discharge with improved liver functions on April 20. She will be using [place] and Zofran at home as needed. She will resume her anticoagulation tomorrow. She did have atrial fibrillation while in the hospital with intermittent tachycardia. She will continue her usual medications and is scheduled to see [facility] at [facility] for consideration of ablation in April. Status at Discharge Cognitive/behavioral status at discharge: oriented Functional status at discharge: independent ambulation Overall status at discharge: patient is progressing back to baseline Time Spent with Patient Time spent: Greater than 30 minutes Exam Vital Signs (past 8 hours): - 04/20/24 04:44 04/20/24 08:00 04/20/24 08:34 Temperature 97.6 F Pulse Rate 77 110 H 110 H Respiratory Rate 16 18 Blood Pressure 137/87 142/95 H 142/95 H Pulse Oximetry 95 93 Oxygen Flow Rate 0 Oxygen Delivery Method Room Air Oxygen Flow Rate 0 Narrative Exam Narrative: NAD, alert and oriented. Fluent speech. Lungs are clear, normal rate and effort. Heart is irregular, no murmur gallop or rub. Abdomen is soft, non distended. Wounds are fine. Extremities are free of edema. Objective ECG Impression: Atrial fibrillation with rapid ventricular response ST & T wave abnormality, consider inferolateral ischemia Imaging US - abdomen: Radiologist's impression: IMPRESSION: Suspicion for cholecystitis, with an enlarged gallbladder with a 1.9 cm stone lodged within the gallbladder neck. The sonographic Muse sign is positive. No additional sonographic signs of cholecystitis are seen. The common bile duct is enlarged at 11 mm, previously measuring 8 mm on MRI. Enlarged, fatty infiltrated liver. Labs 04/20/24 07:20 04/20/24 08:06 Labs: Laboratory Results - last 24 hr 04/20/24 04/20/24 07:20 08:06 WBC 9.0 RBC 4.58 Hgb 13.2 Hct 39.2 MCV 85.7 MCH 28.8 MCHC 33.6 RDW 13.3 Plt Count 236 Sodium 140 Potassium 3.6 Chloride 104 Carbon Dioxide 26 BUN 9 Creatinine 0.44 L Estimated GFR > 60 BUN/Creatinine Ratio 20.5 Glucose 117 H Calcium 9.5 Total Bilirubin 0.4 AST 68 H ALT 61 H Alkaline Phosphatase 70 Total Protein 6.5 Albumin 3.7 Globulin 2.8 Albumin/Globulin Ratio 1.3 PFSH Medical History Paroxysmal atrial fibrillation Dyslipidemia Osteoporosis Colon cancer screening declined (11/2019) Allergies Knee pain Intrauterine pessary (~2018) Vitamin D deficiency (07/2019) Screening for malignant neoplasm of colon (02/2021) Type 2 diabetes mellitus (07/2019) Essential hypertension (1989) Acquired hypothyroidism Surgical History H/O: hysterectomy Anesthesia Status post bunionectomy Status post breast biopsy Status post endometrial ablation Family History Father Diabetes mellitus Heart disease Pancreatitis Heart attack Hyperlipidemia Hypertension Grandfather Heart disease Cancer Grandmother Heart disease Mother Heart disease Hypertension Hyperlipidemia Grandmother Heart disease Hypertension Sister Age: 64 Hypertension Brother Heart disease Brother Heart disease Brother Heart disease Social History household members: spouse Smoking Status: Former smoker alcohol intake: never eating out: 1-3 times/week Type(s) of exercise: walking Discharge Assessment & Plan Assessment and Plan Assessment: 1. Cholecystitis with impacted gallbladder neck stone, present on admission and resolved. -Xarelto held 48 hours. Lap jenn 04/19. 2. Atrial fibrillation (PAF) with RVR, present on admission and improved. 3. Diabetes mellitus type 2, uncontrolled with hyperglycemia. Present on admission and active. 4. Hypothyroidism, stable. 5. Hypertension, stable. 6. Dyslipidemia, stable. Holding her usual cholesterol meds for now. 7. UTI, present on admission and resolved. Given antibiotics for 3 days while in the hospital, we will go home without further antibiotics. 8. Transaminitis, improved. Plan of Treatment: Discharge home and resume all regular medications including anticoagulation. [place] for pain. Follow up with surgery as scheduled within 2 weeks. Discharge Plan Discharge Plan Patient Disposition: Home Provider Discharge Comment: Stable for discharge home after laparoscopic cholecystectomy. Discharge orders & Medications Prescriptions: New hydrocodone-acetaminophen 5-325 mg Tablet 1 tab PO Q4HR PRN (Reason: Pain, Moderate (4-6)) Qty: 15 0RF ondansetron HCl 4 mg tablet 4 mg PO Q8H PRN (Reason: nausea and vomiting) 4 Days Qty: 14 0RF Continued acetaminophen 325 mg tablet 650 mg PO Q4-6H PRN (Reason: pain) fenofibrate 160 mg tablet 160 mg PO DAILY Qty: 90 3RF metformin 500 mg tablet 500 mg PO BID Qty: 180 3RF metoprolol succinate 25 mg tablet extended release 24 hr 12.5 mg PO DAILY Qty: 30 0RF levothyroxine 75 mcg tablet 75 mcg PO DAILY lisinopril 10 mg tablet 10 mg PO BID flecainide 100 mg tablet 50 mg PO BID Xarelto 20 mg tablet 20 mg PO DAILY loratadine 10 mg Tablet 10 mg PO DAILY Follow up/Referrals: Mando Puente ARNP [Primary Care Provider] - Discharge Health Status Multidrug resistant organism: No MDRO Diet/Activity/Treatments Diet: Diet as Tolerated Visit Report/Discharge Packet Instructions: DI for Prescription Opioid Use, DI for Laparoscopic Cholecystectomy, [facility]: Wound Care Stand Alone Forms: Patient Portal/API Discharge Data Primary Care Provider: Mando Puente Quality VTE Deep Vein Thrombosis/Pulmonary Embolism Present on Admission: No
[2024-04-20] MEDS: INSULIN LISPRO 100 UNIT/ML 3ML VIAL SUBCUT (11:51)
[2024-04-20 12:00] VITALS: BP 114/77; PULSE 88; RESP 16; TEMP 36.5; O2SAT 96
--- NOTE | 2024-04-20 13:09 | CM.DPC ---
DCP Cont. Reviewed EMR and team rounds for status updates. Pt has been medically cleared for home d/c. No further CM d/c needs identified at this time.
--- NOTE | 2024-04-20 15:04 | PC.NURSE ---
Day shift: DIscharge instructions gone over with patient and patient's spouse. All questions answered, patient stated understanding. PIV removed prior to discharge. All belongings with patient. PCT Rene escorted patient to exit via wheelchair.
== END 2024-04-20 14:25 | disposition home or self-care (01) | DRG 418 ==
LOC: ED 13:45 → AC 15:44
PROVIDERS: Hospitalist; Surgery; Admitting Provider Family Medicine; Emergency Provider Emergency Medicine; PCP Registered Nurse Diabetes Educator; Referring Provider Emergency Medicine; Visit Provider Family Medicine
PROC: 0FT44ZZ Resection of Gallbladder, Percutaneous Endoscopic Approach (ICD-10-PCS; CPT 47562; principal; 2024-04-19 14:15)
DX: K80.13 Calculus of gallbladder with acute and chronic cholecystitis with obstruction (principal); N39.0 Urinary tract infection, site not specified; I48.0 Paroxysmal atrial fibrillation; E86.0 Dehydration; E11.65 Type 2 diabetes mellitus with hyperglycemia; E03.9 Hypothyroidism, unspecified; I10 Essential (primary) hypertension; E78.5 Hyperlipidemia, unspecified; R74.01 Elevation of levels of liver transaminase levels; R00.0 Tachycardia, unspecified; Z79.84 Long term (current) use of oral hypoglycemic drugs; Z79.01 Long term (current) use of anticoagulants; Z87.891 Personal history of nicotine dependence; Z79.890 Hormone replacement therapy
CPT/HCPCS: 36415; 47563; 76705; 80053; 81001; 82962; 83690; 83735; 84484; 85025; 85027; 87077; 87086; 87186; 93005; 96361; 96374; 96375; 99233; 99284; 99285; J0696; J1171; J1650; J1815; J2250; J2405; J2704; J2765; J3010

== ENCOUNTER 2024-04-25 20:10 | Emergency (ER) | payer MEDICARE, SELFPAY ==
[2024-04-17 15:49] VITALS: BMI 27.7
[2024-04-25] VITALS (29 sets, daily range): BP systolic 126–186; BP diastolic 69–115; PULSE 80–142; RESP 10–22; TEMP 36.5; O2SAT 94–99; BMI 26.6
--- NOTE | 2024-04-25 20:25 | EKG_ITS ---
[facility] [address] [place] [address] Test Date: 2024-04-25 Pat Name: Ita Perla Department: [facility] Room: Gender: Female Rotary Cutter: IRENE : 1955 Requested By: Order Number: [id number] Reading MD: Lamin Clark Measurements Intervals [place] Rate: 138 P: [place]: QRS: 62 QRSD: 86 T: 219 QT: 354 QTc: 536 Interpretive Statements Atrial flutter with variable AV block ST & T wave abnormality, consider inferior ischemia ST & T wave abnormality, consider anterolateral ischemia Electronically Signed On 04-26-2024 18:28:59 PST by Lamin Clark
--- NOTE | 2024-04-25 20:25 | DI.RAD.S_ITS ---
PROCEDURE: XR CHEST 1V INDICATIONS: chest pain TECHNIQUE: One view of the chest was acquired. COMPARISON: [facility], CR, XR CHEST 1V, 12/19/2023, 21:22. FINDINGS: Surgical changes and devices: Surgical clips are seen in the region of left breast. Lungs and pleura: Lungs are clear. No pleural effusions or pneumothorax. Mediastinum: Mediastinal contours appear normal. Heart size is normal. Bones and chest wall: No suspicious bony lesions. Overlying soft tissues appear unremarkable. IMPRESSION: No acute cardiopulmonary pathology. Dictated by: Jhon Ortiz M.D. on 04/25/2024 at 20:58 Approved by: Jhon Ortiz M.D. on 04/25/2024 at 20:58
[2024-04-25 20:46] LABS: Add Manual Diff / Slide Review NO; Basophils Absolute Auto 100 /uL (0-100); Basophils Percent Auto 0.7 % (0-2); Eosinophils Absolute Auto 200 /uL (0-450); Eosinophils Percent Auto 3.3 % (2-4); Hematocrit 39.6 % (36-46); Hemoglobin 13.4 g/dL (12.0-16.0); Lymphocytes Absolute Auto 2800 /uL (1100-4500); Lymphocytes Percent Auto 37.1 % (25-40); Mean Corpuscular HGB Conc 33.9 % (30-36); Mean Corpuscular Hemoglobin 28.7 PG (26-34); Mean Corpuscular Volume 84.7 fL (80-100); Monocytes Absolute Auto 500 /uL (0-900); Monocytes Percent Auto 6.6 % (3-14); Neutrophils Absolute Auto 3900 /uL (1500-7000); Neutrophils Percent Auto 52.3 % (50-75); Platelet Count 338 X10^3/uL (150-400); Red Blood Cell Count 4.67 X10^6/uL (4.0-5.2); Red Cell Distribution Width 13.6 % (11.6-14.8); White Blood Cell Count 7.5 X10^3/uL (4.5-11.0)
[2024-04-25 20:53] LABS: INR 1.7 (0.9-1.3); Prothrombin Time 18.9 SECONDS (9.4-12.5)
[2024-04-25 20:56] LABS: PTT Partial Thromboplastin Tim 45 SECONDS (25.1-36.5)
[2024-04-25 20:57] LABS: Alanine Aminotransferase 37 IU/L (<35); Albumin 4.5 g/dL (3.5-5.0); Albumin Globulin Ratio 1.2 (1.0-2.8); Alkaline Phosphatase 82 U/L (38-126); Aspartate Aminotransferase 33 IU/L (14-36); BUN Creatinine Ratio 21.6 (6-22); Bilirubin Total 0.3 mg/dL (0.2-1.3); Blood Urea Nitrogen 11 mg/dL (7-17); Calcium 10.2 mg/dL (8.4-10.2); Carbon Dioxide 28 mmol/L (22-32); Chloride 104 mmol/L (98-107); Creatine Kinase 62 U/L (30-135); Estimated Glomerular Filt Rate > 60 mL/min (>60); Globulin 3.7 g/dL (1.7-4.1); Glucose 119 mg/dL (80-110); HEMOLYSIS < 15 (0-50); Lipase 156 U/L (23-300); Magnesium 1.6 mg/dL (1.6-2.3); Potassium 3.2 mmol/L (3.4-5.1); Sodium 141 mmol/L (137-145); Total Protein 8.2 g/dL (6.3-8.2)
[2024-04-25 21:09] LABS: NT-proBNP (BNP-Adult 18+) 2040 pg/mL (<125); Troponin I < 0.012 ng/mL (0.01-0.034)
[2024-04-25] MEDS: dilTIAZem 25 MG/5 ML SDV 10 MG IV (21:22)
[2024-04-25] MEDS: lisinopriL 10 MG TABLET PO (22:26)
[2024-04-25] MEDS: FLECAINIDE 100 MG TABLET 50 MG PO (22:26)
--- NOTE | 2024-04-25 23:12 | ED.ARRPALP ---
HPI - Arrhythmia/Palpitations General Chief Complaint: Arrhythmia/Palpitations Stated Complaint: afib heart rate 140 Time Seen by Provider: 04/25/24 23:12 Source: patient Mode of arrival: Ambulatory History of Present Illness HPI narrative: Patient 68-year-old female history of paroxysmal atrial fibrillation recent hospitalization for cholecystectomy, with surgery April 19, Xarelto was held 48 hours prior to lap jenn. She presents today with elevated heart rate. She thinks she was still in AFib when she was discharged hospital. She does get bradycardic when she was in sinus rhythm. She has been admitted a couple of times over the last few months in regards to AFib with RVR. She has been on flecainide 50 mg twice a day and metoprolol extended release 12.5 mg daily. She continues these medications now. However her heart rate now is in the 140 She was no abdominal pain nausea or vomiting bowel movements are slightly irregular Related Data Home Medications Medication Instructions Recorded Confirmed acetaminophen 325 mg tablet 650 mg PO Q4-6H PRN pain 04/30/23 04/22/24 flecainide 100 mg tablet 50 mg PO BID 04/17/24 04/22/24 levothyroxine 75 mcg tablet 75 mcg PO DAILY 04/17/24 04/22/24 lisinopril 10 mg tablet 10 mg PO BID 04/17/24 04/22/24 loratadine 10 mg tablet 10 mg PO DAILY 04/17/24 04/22/24 rivaroxaban 20 mg tablet (Xarelto) 20 mg PO DAILY 04/17/24 04/22/24 Previous Rx's Medication Instructions Recorded metoprolol succinate 25 mg 12.5 mg (1/2 x 25 mg) PO DAILY #30 01/19/24 tablet,extended release 24 hr tabs fenofibrate 160 mg tablet 160 mg PO DAILY #90 tabs 03/18/24 metformin 500 mg tablet 500 mg PO BID #180 tabs 03/21/24 hydrocodone 5 mg-acetaminophen 325 1 tab PO Q4HR PRN Pain, Moderate 04/20/24 mg tablet (4-6) #15 tabs Allergies Allergy/AdvReac Type Severity Reaction Status Date / Time azithromycin Allergy Mild Rash Verified 04/25/24 20:18 Patient History Medical History Paroxysmal atrial fibrillation Dyslipidemia Osteoporosis Colon cancer screening declined (11/2019) Allergies Knee pain Intrauterine pessary (~2018) Vitamin D deficiency (07/2019) Screening for malignant neoplasm of colon (02/2021) Type 2 diabetes mellitus (07/2019) Essential hypertension (1989) Acquired hypothyroidism Surgical History H/O: hysterectomy Anesthesia Status post bunionectomy Status post breast biopsy Status post endometrial ablation Family History Father Diabetes mellitus Heart disease Pancreatitis Heart attack Hyperlipidemia Hypertension Grandfather Heart disease Cancer Grandmother Heart disease Mother Heart disease Hypertension Hyperlipidemia Grandmother Heart disease Hypertension Sister Age: 64 Hypertension Brother Heart disease Brother Heart disease Brother Heart disease Social History household members: spouse Smoking Status: Former smoker alcohol intake: never eating out: 1-3 times/week Type(s) of exercise: walking Smoking Status: Former smoker tobacco type: cigarettes alcohol intake frequency: other Exam Initial Vital Signs Initial Vital Signs: Vital Signs Temperature 97.7 F 04/25/24 20:18 Pulse Rate 142 H 04/25/24 20:18 Respiratory Rate 20 04/25/24 20:18 Blood Pressure 154/115 H 04/25/24 20:18 Pulse Oximetry 98 04/25/24 20:18 Oxygen Delivery Method Room Air 04/25/24 20:18 GENERAL: Alert well-appearing 68-year-old female HEENT: Head atraumatic,EOMI, pupils reactive, face symmetric, [moist] mucous membranes CARDIOVASCULAR: Irregularly irregular tachycardic RESPIRATORY: Breath sounds equal bilaterally, no wheezes rales or rhonchi. ABDOMEN: Soft, nontender. Normoactive bowel sounds all 4 quadrants. No guarding or rebound. Bandages placed dry no distention EXTREMITIES: Normal range of motion, no clubbing or edema. Neurovascularly intact NEUROLOGICAL: Alert and oriented x4.Normal gait and speech. Cranial nerves II through XII grossly intact. SKIN: Warm, dry, no laceration, no petechiae, no rashes or lesions. Course Orders Ordered: ED Orders 04/25/24 20:25 XR chest 1V Stat EKG-12 Lead Stat 03/03/25 20:26 Complete Blood Count AUTO DIFF Stat Comprehensive Metabolic Panel Stat Lipase Stat Magnesium Stat NT-proBNP (BNP-Adult 18+) Stat PTT Partial Thromboplastin Juan Carlos Stat Prothrombin Time INR Stat Troponin & CK Cardiac Panel Stat Discontinued Medications Aspirin (Aspirin 81 Mg Chew Tab) 324 mg PO NOW ONE Stop: 04/25/24 20:26 Last Admin: 04/25/24 21:29 Dose: Not Given Documented By: PRATIMA Diltiazem HCl (Diltiazem 25 Mg/5 Ml Sdv) 10 mg IV NOW ONE Stop: 04/25/24 20:53 Last Admin: 04/25/24 21:22 Dose: 10 mg Documented By: PRATIMA Flecainide Acetate (Flecainide 100 Mg Tablet) 50 mg PO NOW ONE Stop: 04/25/24 22:17 Last Admin: 04/25/24 22:26 Dose: 50 mg Documented By: PRATIMA Lisinopril (Lisinopril 10 Mg Tablet) 10 mg PO NOW ONE Stop: 04/25/24 22:17 Last Admin: 04/25/24 22:26 Dose: 10 mg Documented By: PRATIMA Metoprolol Succinate (Metoprolol Er 25 Mg Tablet) 25 mg PO NOW ONE Stop: 04/25/24 23:45 Last Admin: 04/25/24 23:58 Dose: 25 mg Documented By: PRASAD Vital Signs Vital signs: Vital Signs - 8 hr 04/25/24 20:18 04/25/24 20:33 04/25/24 20:33 Temperature 97.7 F Pulse Rate 142 H 135 H Respiratory Rate 20 18 Blood Pressure 154/115 H 155/115 H Pulse Oximetry 98 98 Oxygen Delivery Method Room Air 04/25/24 20:47 04/25/24 20:47 04/25/24 20:50 Temperature Pulse Rate 140 H Respiratory Rate 10 L Blood Pressure 169/89 H 183/102 H Pulse Oximetry 97 Oxygen Delivery Method 04/25/24 20:50 04/25/24 20:59 04/25/24 20:59 Temperature Pulse Rate 134 H 134 H Respiratory Rate 10 L 22 Blood Pressure 169/113 H Pulse Oximetry 96 97 Oxygen Delivery Method Room Air 04/25/24 21:00 04/25/24 21:00 04/25/24 21:10 Temperature Pulse Rate 136 H Respiratory Rate 18 Blood Pressure 184/106 H 186/96 H Pulse Oximetry 97 Oxygen Delivery Method 04/25/24 21:10 04/25/24 21:21 04/25/24 21:21 Temperature Pulse Rate 132 H 129 H Respiratory Rate 17 16 Blood Pressure 157/104 H Pulse Oximetry 95 96 Oxygen Delivery Method 04/25/24 21:24 04/25/24 21:24 04/25/24 21:26 Temperature Pulse Rate 136 H Respiratory Rate 14 Blood Pressure 154/101 H 129/74 Pulse Oximetry 96 Oxygen Delivery Method 04/25/24 21:26 04/25/24 21:30 04/25/24 21:30 Temperature Pulse Rate 110 H 97 H Respiratory Rate 16 13 Blood Pressure 137/76 Pulse Oximetry 98 96 Oxygen Delivery Method 04/25/24 21:40 04/25/24 21:40 04/25/24 21:50 Temperature Pulse Rate 84 Respiratory Rate 16 Blood Pressure 137/85 135/86 Pulse Oximetry 96 Oxygen Delivery Method 04/25/24 21:50 04/25/24 22:00 04/25/24 22:00 Temperature Pulse Rate 92 H 83 Respiratory Rate 15 14 Blood Pressure 137/77 Pulse Oximetry 94 95 Oxygen Delivery Method 04/25/24 22:10 04/25/24 22:10 04/25/24 22:13 Temperature Pulse Rate 85 Respiratory Rate 16 Blood Pressure 148/74 H 158/99 H Pulse Oximetry 94 Oxygen Delivery Method 04/25/24 22:13 04/25/24 22:20 04/25/24 22:20 Temperature Pulse Rate 98 H 86 Respiratory Rate 14 15 Blood Pressure 157/82 H Pulse Oximetry 98 94 Oxygen Delivery Method 04/25/24 22:29 04/25/24 22:30 04/25/24 22:31 Temperature Pulse Rate 114 H 100 H Respiratory Rate 16 11 L Blood Pressure 156/85 H Pulse Oximetry 95 97 Oxygen Delivery Method 04/25/24 22:40 04/25/24 22:40 04/25/24 22:50 Temperature Pulse Rate 86 Respiratory Rate 13 Blood Pressure 127/85 130/78 Pulse Oximetry 95 Oxygen Delivery Method 04/25/24 22:50 04/25/24 23:00 04/25/24 23:00 Temperature Pulse Rate 80 81 Respiratory Rate 14 16 Blood Pressure 126/69 Pulse Oximetry 95 94 Oxygen Delivery Method Room Air 04/25/24 23:11 04/25/24 23:11 04/25/24 23:20 Temperature Pulse Rate 108 H Respiratory Rate 17 Blood Pressure 130/91 H 141/96 H Pulse Oximetry 97 Oxygen Delivery Method 04/25/24 23:20 04/25/24 23:30 04/25/24 23:30 Temperature Pulse Rate 123 H 124 H Respiratory Rate 13 14 Blood Pressure 147/83 H Pulse Oximetry 97 99 Oxygen Delivery Method 04/25/24 23:40 04/25/24 23:40 04/25/24 23:50 Temperature Pulse Rate 117 H 114 H Respiratory Rate 15 16 Blood Pressure 150/78 H Pulse Oximetry 95 97 Oxygen Delivery Method 04/25/24 23:50 04/25/24 23:58 04/26/24 00:00 Temperature Pulse Rate 108 H 122 H Respiratory Rate 15 Blood Pressure 151/88 H 151/88 H Pulse Oximetry 97 Oxygen Delivery Method 04/26/24 00:01 04/26/24 00:01 04/26/24 00:32 Temperature 98.1 F Pulse Rate 117 H 98 H Respiratory Rate 16 Blood Pressure 147/88 H Pulse Oximetry 96 Oxygen Delivery Method Room Air 04/26/24 00:46 Temperature 98.4 F Pulse Rate 119 H Respiratory Rate 17 Blood Pressure 165/86 H Pulse Oximetry 96 Oxygen Delivery Method Room Air MDM - Arrhythmia/Palpitations Lab Data 04/25/24 20:26 04/25/24 20:26 Labs: Lab Results 04/25/24 Range/Units 20:26 WBC 7.5 (4.5-11.0) X10^3/uL RBC 4.67 (4.0-5.2) X10^6/uL Hgb 13.4 (12.0-16.0) g/dL Hct 39.6 (36-46) % MCV 84.7 (80-100) fL MCH 28.7 (26-34) PG MCHC 33.9 (30-36) % RDW 13.6 (11.6-14.8) % Plt Count 338 (150-400) X10^3/uL Neut % (Auto) 52.3 (50-75) % Lymph % (Auto) 37.1 (25-40) % [place] % (Auto) 6.6 (3-14) % Eos % (Auto) 3.3 (2-4) % Baso % (Auto) 0.7 (0-2) % Neut # (Auto) 3900 (5268-9378) /uL Lymph # (Auto) 2800 (2292-8276) /uL [place] # (Auto) 500 (0-900) /uL Eos # (Auto) 200 (0-450) /uL Baso # (Auto) 100 (0-100) /uL PT 18.9 H (9.4-12.5) SECONDS INR 1.7 H (0.9-1.3) APTT 45 H (25.1-36.5) SECONDS Sodium 141 (137-145) mmol/L Potassium 3.2 L (3.4-5.1) mmol/L Chloride 104 (98-107) mmol/L Carbon Dioxide 28 (22-32) mmol/L BUN 11 (7-17) mg/dL Creatinine 0.51 L (0.52-1.04) mg/dL Estimated GFR > 60 (>60) mL/min BUN/Creatinine Ratio 21.6 (6-22) Glucose 119 H (80-110) mg/dL Calcium 10.2 (8.4-10.2) mg/dL Magnesium 1.6 (1.6-2.3) mg/dL Total Bilirubin 0.3 (0.2-1.3) mg/dL AST 33 (14-36) IU/L ALT 37 H (<35) IU/L Alkaline Phosphatase 82 (38-126) U/L Total Creatine Kinase 62 (30-135) U/L Troponin I < 0.012 (0.01-0.034) ng/mL NT-Pro-B Natriuret Pep 2040 H (<125) pg/mL Total Protein 8.2 (6.3-8.2) g/dL Albumin 4.5 (3.5-5.0) g/dL Globulin 3.7 (1.7-4.1) g/dL Albumin/Globulin Ratio 1.2 (1.0-2.8) Lipase 156 (23-300) U/L Imaging Data Chest x-ray: Radiologist's Impresson: PROCEDURE: XR CHEST 1V INDICATIONS: chest pain TECHNIQUE: One view of the chest was acquired. COMPARISON: [facility], CR, XR CHEST 1V, 12/19/2023, 21:22. FINDINGS: Surgical changes and devices: Surgical clips are seen in the region of left breast. Lungs and pleura: Lungs are clear. No pleural effusions or pneumothorax. Mediastinum: Mediastinal contours appear normal. Heart size is normal. Bones and chest wall: No suspicious bony lesions. Overlying soft tissues appear unremarkable. IMPRESSION: No acute cardiopulmonary pathology. Dictated by: Jhon Ortiz M.D. on 04/25/2024 at 20:58 ECG Data Attestation: I personally reviewed and interpreted this ECG as follows: Prior ECG tracings: available for review Interpretation: Atrial fibrillation rate 138 no ischemia similar to prior MDM Narrative Medical decision making narrative: MDM CC: Heart palpitations Complicating co-morbidities: Paroxysmal atrial fibrillation with recent cholecystectomy Medical records reviewed: Recent admission Differential considered: [ ] Exam documented above, pertinent findings include: Awake alert 68-year-old female irregular irregular heartbeat abdomen is soft incision sites clean Lab Test results independently reviewed as above. Pertinent findings: CBC does not show any leukocytosis or anemia CMP mild hypokalemia potassium 3.2 other electrolytes stable creatinine at baseline 0.51 Bilirubin liver enzymes within normal limits Troponin negative, BNP 2040, previously 602 Independently reviewed EKG as above AFib with RVR Imaging studies independently reviewed: Chest x-ray no acute cardiopulmonary process Consultations: 26:43Dr. Burton, on-call cardiology updated on patient's symptoms test results recommends metoprolol 25 mg once a day can be discharged no need for admission. Needs to have follow up in clinic Treatments: Diltiazem 10 mg, metoprolol, home dose of flecainide and lisinopril Re-evaluations: Patient's heart rate did respond to 10 mg of diltiazem but it did start wearing often heart rate started increasing. She was given her home medications flecainide and lisinopril as well Discussion: Patient 68-year-old female presenting today with AFib with RVR. She has a history of paroxysmal atrial fibrillation. She was not a candidate for cardioversion she was taken off her Xarelto for 48 hours last week for surgery. Her heart rate did respond to 10 mg of diltiazem. She does take 12.5 mg of metoprolol daily sounds like she does have bradycardic episodes with heart rate in the 50s and is symptomatic when she was in sinus. Cardiology was consulted. At this time increase metoprolol to 25 mg once a day she was given 25 mg tonight. Relatively asymptomatic here. Heart rate has come down in his anywhere from 100-115 seems reasonable to send her home. She understands she needs to have outpatient follow up with her technician support engineer or primary care provider she also knows when to return to ED Discharge Plan Departure Patient Disposition: Home Clinical Impression: Atrial fibrillation with rapid ventricular response Instructions: DI for Atrial Fibrillation Activity Restrictions/Additional Instructions: *You have been diagnosed with atrial fibrillation *What to do: At this time we will increase your metoprolol. You will need to follow-up with your technician support engineer and primary care provider Check heart rate every morning if heart rate is 50-60 take 12.5 mg of metoprolol, if heart rate is in the 80s to 100s then take 25 mg Increase activity as tolerated no heavy lifting recommend some light walking. *Continue to take medications as directed Increase metoprolol to 25 mg once a day *Follow up with your primary care provider in 2-3 days or call [phone] Patel in the morning for follow up *Return to ER if you should have increasing chest pain heart palpitations shortness of breath or any new, worsening or concerning symptoms Prescriptions: No Action acetaminophen 325 mg tablet 650 mg PO Q4-6H PRN (Reason: pain) fenofibrate 160 mg tablet 160 mg PO DAILY Qty: 90 3RF metformin 500 mg tablet 500 mg PO BID Qty: 180 3RF metoprolol succinate 25 mg tablet extended release 24 hr 12.5 mg PO DAILY Qty: 30 0RF levothyroxine 75 mcg tablet 75 mcg PO DAILY lisinopril 10 mg tablet 10 mg PO BID flecainide 100 mg tablet 50 mg PO BID Xarelto 20 mg tablet 20 mg PO DAILY loratadine 10 mg Tablet 10 mg PO DAILY hydrocodone-acetaminophen 5-325 mg Tablet 1 tab PO Q4HR PRN (Reason: Pain, Moderate (4-6)) Qty: 15 0RF Referrals: Mando Puente ARNP [Primary Care Provider] - Stand Alone Forms: Patient Portal/API/Survey
[2024-04-25] MEDS: METOPROLOL ER 25 MG TABLET PO (23:58)
[2024-04-26] VITALS: PULSE 122; RESP 15; O2SAT 97
[2024-04-26 00:01] VITALS: BP 147/88; PULSE 117; RESP 16; TEMP 36.7; O2SAT 96
[2024-04-26 00:32] VITALS: PULSE 98
[2024-04-26 00:46] VITALS: BP 165/86; PULSE 119; RESP 17; TEMP 36.9; O2SAT 96
== END 2024-04-26 00:48 | disposition home or self-care (01) ==
PROVIDERS: Emergency Provider Emergency Medicine; PCP Registered Nurse Diabetes Educator
DX: I48.20 Chronic atrial fibrillation, unspecified (principal); R07.9 Chest pain, unspecified; Z79.01 Long term (current) use of anticoagulants
CPT/HCPCS: 36415; 71045; 80053; 82550; 83690; 83735; 83880; 84484; 85025; 85610; 85730; 93005; 96374; 99284